=== PATIENT | male | born 1935 | race Caucasian/White ===

== ENCOUNTER → 2019-08-08 10:51 | Outpatient (BNVA) | payer MEDICARE, SELFPAY | PROVIDERS: Family Provider Family Medicine; PCP Family Medicine; Visit Provider Urology | DX: R33.9 Retention of urine, unspecified (principal); R82.81 Pyuria; C61 Malignant neoplasm of prostate; N52.9 Male erectile dysfunction, unspecified | CPT/HCPCS: 81001 ==

== ENCOUNTER → 2020-04-17 09:39 | Outpatient (BNVA) | payer MEDICARE, SELFPAY | PROVIDERS: Family Provider Family Medicine; PCP Family Medicine; Visit Provider Internal Medicine Cardiovascular Disease | DX: E78.2 Mixed hyperlipidemia (principal) | CPT/HCPCS: 80048; 80061 ==

== ENCOUNTER → 2020-05-12 12:28 | Outpatient (BNVA) | payer MEDICARE, SELFPAY | PROVIDERS: Family Provider Family Medicine; PCP Family Medicine; Visit Provider Dermatology | DX: D48.9 Neoplasm of uncertain behavior, unspecified (principal) | CPT/HCPCS: 88304 ==

== ENCOUNTER → 2020-05-28 15:50 | Outpatient (BNVA) | payer MEDICARE, SELFPAY | PROVIDERS: Family Provider Family Medicine; PCP Family Medicine; Visit Provider Urology | DX: R33.9 Retention of urine, unspecified (principal); C61 Malignant neoplasm of prostate; R31.0 Gross hematuria; N52.9 Male erectile dysfunction, unspecified; N39.9 Disorder of urinary system, unspecified | CPT/HCPCS: 80053; 81003; 87077; 87086; 87184; 88112 ==

== ENCOUNTER 2020-06-11 09:39 | Outpatient (CLI) | payer MEDICARE, SELFPAY ==
--- NOTE | 2020-06-11 10:15 | US_ITS ---
WS: [id number] ULTRASOUND RENAL TECHNIQUE: Ultrasound examination of both kidneys. CLINICAL INFORMATION: Hematuria COMPARISON: None. FINDINGS: Multiple bilateral simple renal cysts. Largest left renal cyst upper pole measuring 5.4 x 3 .6 x 4.1 CM. Largest cyst right kidney inferior pole measures 3.1 x 2.9 x 3.1 cm RIGHT: Right kidney is normal in size and appearance. Echogenicity: Normal. Cortical thickness: 1.1 cm; Normal. Hydronephrosis: None. Perinephric fluid: None. Right kidney measures: 12.4 cm x 6.7 cm x 6.7 cm. LEFT: Left kidney is normal in size and appearance. Echogenicity: Normal. Cortical thickness: 1.1 cm; Normal. Hydronephrosis: None. Perinephric fluid: None. Left kidney measures: 12.2 cm x cm x cm. Normal visualized aorta. Enlarged prostate. Diffuse bladder wall thickening. US/US renal BI* [id number] IMPRESSION: 1. Multiple bilateral simple renal cysts. Largest measures blunting. 2. Normal bladder. Small amount of free fluid along the dome of the bladder. 3. Diffuse bladder wall thickening can be seen with chronic cystitis or bladde r outlet obstruction. 4. Enlarged prostate measuring 4.1 x 3.2 x 3.2 CM. 5. Prostate measures
== END 2020-06-11 09:40 | disposition home or self-care (01) ==
LOC: RAD 09:44
PROVIDERS: PCP Family Medicine; Visit Provider Urology
DX: R31.0 Gross hematuria (principal); N28.1 Cyst of kidney, acquired; N40.0 Benign prostatic hyperplasia without lower urinary tract symptoms
CPT/HCPCS: 76770; 81003

== ENCOUNTER → 2020-06-16 11:07 | Outpatient (BNVA) | payer MEDICARE, SELFPAY | PROVIDERS: PCP Family Medicine; Visit Provider Dermatology | DX: D48.9 Neoplasm of uncertain behavior, unspecified (principal) | CPT/HCPCS: 88304 ==

== ENCOUNTER → 2020-06-18 15:09 | Outpatient (BNVA) | payer MEDICARE, SELFPAY | PROVIDERS: PCP Family Medicine; Visit Provider Urology | DX: N99.112 Postprocedural membranous urethral stricture, male (principal) | CPT/HCPCS: 87635 ==

== ENCOUNTER 2020-06-23 10:56 | Day surgery (SDC) | payer MEDICARE, SELFPAY ==
[2020-06-19 09:53] VITALS: BMI 24.4
--- NOTE | 2020-06-19 09:59 | ECG_ITS ---
[facility] Test Date: 2020-06-19 Pat Name: Cain Simpson Department: Room: Gender: Male Weigher Alloy: : 1935 Requested By: Loco Aparicio Order Number: [id number] Marilynn MD: Hugh Alvarado M.D. Measurements Intervals [place] Rate: 88 P: ND: QRS: 67 QRSD: 126 T: 41 QT: 392 QTc: 475 Interpretive Statements ATRIAL FIBRILLATION RIGHT BUNDLE BRANCH BLOCK [120+ ms QRS DURATION, UPRIGHT V1, 40+ ms S IN I/aVL/V4/V5/V6] No previous ECG available for comparison Electronically Signed On 06-19-2020 22:04:52 SALES DEVELOPMENT EXECUTIVE by Hugh Alvarado M.D. [id number]
--- NOTE | 2020-06-19 10:35 | ANES.PREANE2 ---
Pre-Anesthetic Assessment Pre-Anesthetic Assessment: Height/Weight: Height 1.83 m Weight 81.647 kg Preop Diagnosis: Urethral stricture Proposed Procedure: Operation Date: 06/23/20 13:05 Proposed Procedures p Urethral stricture Dilation 85304 n99.112(Not Applicable) - Loco Aparicio MD s Cystoscopy(Not Applicable) - Loco Aparicio MD s Urinary Catheter Insertion(Not Applicable) - Loco Aparicio MD Familial anesthetic complications: urinaryi retetion Social: Social History: No alcohol and No tobacco Comment: former smoker Exam: Pre-Anes Outpt Exam: alert, oriented x 3, clear to auscultation bilaterally and regular rate & rhythm Airway: Cervical ROM: WNL MP: 3 Dentition: Full CV/HEM: CV/HEM: Afib, CAD, HTN and Murmur Comments: stress test 2019 0 EF 57%, no signnificant ischemia ECHO in 2018 - Mod MR, mild, AVR, severe TVR Loop record in place GI: GI: Hiatus hernia Metabolic: Metabolic: Hyperlipidemia Anesthetic Plan: ASA status: 3 Anesthesia: General Risk of > 500 ml blood loss (7ml/kg in children): No PFSH Anesthesia PFSH: Medical History ASHD (arteriosclerotic heart disease) Atrial fibrillation BPH (benign prostatic hyperplasia) Diverticulosis Edema, peripheral Erectile dysfunction Gross hematuria Hyperlipidemia Hypertension Incomplete bladder emptying Lower urinary tract symptoms (LUTS) Postprocedural membranous urethral stricture Prostate cancer Right inguinal hernia Valvular heart disease Surgical History Status post appendectomy Status post bilateral inguinal hernia repair Status post cataract extraction Status post coronary artery bypass graft Family History Father , AT AGE 68-[place] No problems noted. Mother , OF STOMACH CANCER AT AGE 75 Diabetes Other CAD (coronary artery disease) Cancer Hypertension Social History Smoking and tobacco status: former smoker Alcohol intake: never Marital status: Current occupational status: retired Data Anesthesia Cardiac Studies: No Data to Display
[2020-06-19 12:33] LABS: Basophils # 0.1 10^3/uL (0.0-0.1); Basophils % 0.7 %; Eosinophils # 0.1 10^3/uL (0.0-0.8); Eosinophils % 1.5 %; Hematocrit 36.4 % (42.0-52.0); Hemoglobin 11.6 g/dL (11.7-16.6); Lymphocytes # 1.2 10^3/uL (0.8-4.8); Lymphocytes % 17.3 %; Mean Corpuscular HGB Conc 31.9 g/dL (30.0-36.0); Mean Corpuscular Hemoglobin 33.6 pg (28.0-34.0); Mean Corpuscular Volume 105.5 fL (80-94); Mean Platelet Volume 11.3 fL (7.4-10.4); Monocytes # 0.8 10^3/uL (0.2-0.9); Monocytes % 11.5 %; Neutrophils # 4.52 10^3/uL (1.8-7.7); Neutrophils % 67.7 %; Nucleated Red Blood Cells % 0 %; Platelet Count 189 10^3/cmm (130-400); Red Blood Count 3.45 10^6/uL (4.1-5.3); Red Cell Distribution Width 17.2 % (12.1-15.1); White Blood Count 6.7 10^3/uL (4.0-10.0)
[2020-06-19 12:53] LABS: Blood Urea Nitrogen 11 mg/dL (8-23); Calcium 9.6 mg/dL (8.5-10.5); Carbon Dioxide 27 mmol/L (22-29); Chloride 103 mmol/L (98-107); Glucose 80 mg/dL (65-115); Osmolality Calculated 290 mOsm/kg (285-295); Sodium 141 mmol/L (136-145)
[2020-06-23] MEDS: sodium chloride 0.9% 1,000 ML 30 ML IV (11:36)
--- NOTE | 2020-06-23 11:48 | P.ANESUD_ITS ---
Pre-Anesthetic Update Pre-Anesthetic Assessment: Date of Surgery/Procedure: 06/23/20 Preop Karina gnosis: Urethral stricture Proposed Procedure: Operation Date: 06/23/20 13:05 Proposed Procedures p Urethral stricture Dilation 42833 n99.112(Not Applicable) - Loco Aparicio MD s Cystoscopy(Not Applicable) - MD yonatan Gutierrez Urinary Catheter Insertion(Not Applicable) - Loco Aparicio MD Any changes to Pre-Anesthetic Assessment?: No Last Intake: Intake Last Liquid Date 06/22/20 Last Liquid Time 16:00 Last Solid Date 06/22/20 Last Solid Time 16:00 Vitals: Pulse Rhythm 06/23/20 11:19 Pulse Strength 3+ Normal 06/23/20 11:19 Oxygen Delivery Me thod 06/23/20 11:19 Exam: Pre-Anes Outpt Exam: alert, oriented x 3, clear to auscultation bilaterally and regular rate & rhythm Cardiac Studies: No Data to Display
--- NOTE | 2020-06-23 13:04 | P.HPUD_ITS ---
Surgery/Procedure H&P Update DATE OF PROCEDURE: June 23, 2020 DATE H&P PERFORMED: 06/11/20 H&P UPDATE INFORMATION: I have reviewed H&P completed within last 30 days, I have examined patient prior to procedure, No changes to prior documentation and H[place] is [place] [facility] [place] PREOP DIAGNOSIS: Urethral stricture PLANNED PROCEDURE: Operation Date: 06/23/20 13:05 Proposed Procedures p Urethral stricture Dilation 78256 n99.112(Not Applicable) - Loco Aparicio MD s Cystoscopy(Not Applicable) - Loco Aparicio MD s Urinary Catheter Insertion(Not Applicable) - Loco Aparicio MD
[2020-06-23] MEDS: levofloxacin-dextrose 5 % 500 MG/100 ML PREMIX 100 MG IV (13:25)
--- NOTE | 2020-06-23 13:47 | P.OP_ITS ---
Operative Report Date of procedure: June 23, 2020 Pre-op Diagnosis: Urethral stricture Post-op diagnosis: same Procedure Done: Cystoscopy with urethral dilation catheter placement Pathology: none sent Surgeon: Alessandra Anesthesia: General Estimated blood loss: Minimal Complications: None Findings: Pinpoint urethral stricture dilated with Amplatz renal sounds. 12 [place] African to 18 [place]. Good dilation. Reinspection showed normal bladder with cystoscopy (17 [place] scope. Condition: stable Disposition: PACU Brief History: Mr. Simpson is a very pleasant 84-year-old white male recently diagnosed with urethral stricture during work-up for gross hematuria. He complained of typical obstructive symptoms. He was here today for a urethral dilation after holding his Pradaxa for 1 week. Procedure: After routine preoperative evaluation examination and obtaining of informed consent he was taken to the operating suite on 06/23/2020 where general anesthesia was administered without difficulty after appropriate timeout was performed, SCDs confirmed to be functioning, preoperative antibiotics administered, beta-juan protocol confirmed. Prepped and draped in usual sterile fashion in dorsal lithotomy position paying careful attention to avoiding pressure points A 21 [place] cystoscope with 30 degree lens was introduced to the urethral meatus and advanced into the bladder under videoscopy to the point of the stricture which was noted to be pinpoint. A flexible tip guidewire was then passed through it almost completely filling the hole. The wire was confirmed to be curling in the bladder and then sequential dilation beginning with 8 [place] up through 18 [place] African utilizing the Amplatz renal dilator kit was performed with the 14, 16 and 18 being passed over the snake and the 12, 10, and 8 being passed over the wire The 17 [place] cystoscope was then passed over the wire into the bladder and the bladder was inspected with both 70 and 30 degree lenses with no gross pathology identified. A 16 [place] tip catheter that was advanced over the guidewire with good function confirmed and balloon functioning before removal of the safety wire. Catheter placed to dependent drainage and the procedure completed. Tolerated the procedure well without complications, awakened in the operating room and returned to the recovery room in stable condition with anticipation of discharge from outpatient surgery after full recovery. PLANS: 1. Follow-up in 1 week for voiding trial and SCIC instruction.
[2020-06-23 13:48] VITALS: BP 103/69; PULSE 95; RESP 12; TEMP 36.1; O2SAT 100
[2020-06-23 13:50] VITALS: BP 112/72; PULSE 98; RESP 17; O2SAT 100
[2020-06-23 13:55] VITALS: BP 112/74; PULSE 96; RESP 14; O2SAT 97
[2020-06-23 14:00] VITALS: BP 102/77; PULSE 94; RESP 16; TEMP 36.4; O2SAT 98
[2020-06-23 14:07] VITALS: BP 108/69; PULSE 99; RESP 16; TEMP 36.4; O2SAT 98
[2020-06-23 14:21] VITALS: BP 109/76; PULSE 89; RESP 16; O2SAT 99
--- NOTE | 2020-06-23 15:15 | ANE.PACU2 ---
Inpatient post-anesthesia follow up: Airway intact: Yes Vital signs: Temperature 97.6 F Pulse Rate 89 Respiratory Rate 16 Blood Pressure 109/76 Pulse Oximetry 99 Oxygen Delivery Me thod Room Air Oxygen Flow Rate 8 Fraction of Inspir ed Oxygen Hydration adequate: Yes Nausea and vomiting: No Pain level: 2 Mental status: Baseline
== END 2020-06-23 14:34 | disposition home or self-care (01) ==
PROVIDERS: PCP Family Medicine; Visit Provider Urology
PROC: (CPT 52281; principal; 2020-06-23 12:45)
PROC: 0TJB8ZZ Inspection of Bladder, Via Natural or Artificial Opening Endoscopic (ICD-10-PCS; CPT 52000; 2020-06-23 12:45)
DX: N35.919 Unspecified urethral stricture, male, unspecified site (principal); I48.91 Unspecified atrial fibrillation; I25.10 Atherosclerotic heart disease of native coronary artery without angina pectoris; I10 Essential (primary) hypertension; E78.5 Hyperlipidemia, unspecified; N40.0 Benign prostatic hyperplasia without lower urinary tract symptoms; Z87.891 Personal history of nicotine dependence
CPT/HCPCS: 52281; 12345; 80048; 85025; 93005; J1100; J1956; J2405; J2704; J3010; J7030

== ENCOUNTER → 2020-08-14 11:00 | Outpatient (BNVA) | payer MEDICARE, SELFPAY | PROVIDERS: PCP Family Medicine; Visit Provider Urology | DX: R33.9 Retention of urine, unspecified (principal); N99.112 Postprocedural membranous urethral stricture, male; C61 Malignant neoplasm of prostate | CPT/HCPCS: 81003 ==

== ENCOUNTER → 2021-01-12 10:55 | Outpatient (BNVA) | payer MEDICARE, SELFPAY | PROVIDERS: PCP Family Medicine; Visit Provider Urology | DX: N99.112 Postprocedural membranous urethral stricture, male (principal); C61 Malignant neoplasm of prostate; R33.9 Retention of urine, unspecified; N52.9 Male erectile dysfunction, unspecified | CPT/HCPCS: 81003; 84153 ==

== ENCOUNTER → 2021-10-15 10:49 | Outpatient (BNVA) | payer MEDICARE, SELFPAY | PROVIDERS: PCP Family Medicine; Visit Provider Internal Medicine Cardiovascular Disease | DX: E78.2 Mixed hyperlipidemia (principal); R07.9 Chest pain, unspecified; I25.10 Atherosclerotic heart disease of native coronary artery without angina pectoris; I48.19 Other persistent atrial fibrillation | CPT/HCPCS: 99214 ==

== ENCOUNTER 2021-11-06 13:51 | Outpatient (CLI) | payer MEDICARE, SELFPAY ==
--- NOTE | 2021-11-06 14:00 | USCV_ITS ---
Cain Simpson Age: 85 Gender: M : 1935 Exam Date: 11/06/2021 14:04 Ordering Phys: Hugh Alvarado MD ([email or web address]) Technologist: Valerie Wang Exam Location: [facility] [place] Indication: sob mr tr BP: 120 / 70 HR: 93 Rhythm: Sinus Technical Quality: Adequate MEASUREMENTS (Male / Female) Normal Values 2D ECHO LV Chamber Size 4.5 cm RV Chamber Size 3.1 cm LVOT Diameter 2.1 cm LA Diameter 4.5 cm LA Width 4.3 cm LA Height 5.4 cm RA Width 7.3 cm RA Height 8.5 cm Aorta at Sinotubular Diameter 3.5 cm M-MODE Aortic Annulus Diameter 3.7 cm LA Ao Ratio MM 1.3 MV E Point Septal Separation 0.6 cm DOPPLER AV Peak Velocity 214.3 cm/s LVOT Peak Velocity 86.7 cm/s AV Area Cont Eq vti 1.2 cm squared AV Area Cont Eq pk 1.4 cm squared MV Area PHT 4.6 cm squared Mitral E to A Ratio 2.8 MV E' Velocity 62.0 cm/s Mitral E to MV E' Ratio 5.0 Mitral E to LV E' Lateral Ratio 4.7 Mitral E to LV E' Septal Ratio 5.4 TR Peak Velocity 280.0 cm/s TR Peak Gradient 31.4 mmHg TR Mean Velocity 180.3 cm/s TR Mean Gradient 14.9 mmHg TR Velocity Time Integral 65.3 cm TV Peak E Velocity 108.0 cm/s Right Atrial Pressure 10.0 mmHg Pulmonary Artery Systolic Pressu 41.4 mmHg PV Peak Velocity 49.0 cm/s RV Acceleration Time 0.1 s RV Ejection Time 0.3 s RV AcT/ET 0.3 FINDINGS Left Ventricle Normal left ventricular size and systolic function, EF 65%.no regional wall motion abnormalities. Right Ventricle Mildly dilated right ventricle with normal ejection fraction Right Atrium Moderately increased right atrial size. Left Atrium Mildly increased left atrial size. Mitral Valve Grade 2 prolapse of the anterior mitral leaflet. Moderate eccentric mitral regurgitation, jet directed posteriorly Aortic Valve Thickened aortic valve. Mild aortic valve regurgitation. Tricuspid Valve Xjxgbrll-to-umichf tricuspid valve regurgitation. Estimated pulmonary artery peak systolic pressure 41 mm of Hg Pulmonic Valve Structurally normal pulmonic valve without significant stenosis. There is no pulmonic regurgitation. Pericardium Dilated inferior vena cavano pericardial effusion. Aorta Normal ascending aorta dimension. CONCLUSIONS Normal left ventricular size and systolic function, EF 65%. No regional wall motion abnormalities. Mildly dilated right ventricle with normal ejection fraction. Moderately increased right atrial size. Mildly increased left atrial size. Grade 2 prolapse of the anterior mitral leaflet. Moderate eccentric mitral regurgitation, jet directed posteriorly. Thickened aortic valve. Mild aortic valve regurgitation. Ahlqnyow-jk-mwpqkq tricuspid valve regurgitation. Dilated inferior vena cava Estimated pulmonary artery peak systolic pressure 41 mm of Hg. There is no pericardial effusion. No previous study is available for comparison. Dr Hugh Alvarado MD [facility] (Electronically Signed) Final Date: 06 November 2021 18:35 S
== END 2021-11-06 13:52 | disposition home or self-care (01) ==
LOC: RAD 13:53
PROVIDERS: PCP Family Medicine; Visit Provider Internal Medicine Cardiovascular Disease
DX: R06.00 Dyspnea, unspecified (principal); R06.02 Shortness of breath; I08.3 Combined rheumatic disorders of mitral, aortic and tricuspid valves
CPT/HCPCS: 93306

== ENCOUNTER 2022-01-11 13:21 | Outpatient (CLI) | payer MEDICARE, SELFPAY ==
[2022-01-11 14:36] LABS: Prostate Specific Antigen 0.233 ng/mL (0-4)
== END 2022-01-11 13:22 | disposition home or self-care (01) ==
PROVIDERS: PCP Family Medicine; Visit Provider Urology
DX: C61 Malignant neoplasm of prostate (principal); N99.112 Postprocedural membranous urethral stricture, male; N52.9 Male erectile dysfunction, unspecified
CPT/HCPCS: 51741; 51798; 81003; 84153; 99213

== ENCOUNTER → 2022-04-15 11:06 | Outpatient (BNVA) | payer MEDICARE, SELFPAY | PROVIDERS: PCP Family Medicine; Visit Provider Internal Medicine Cardiovascular Disease | DX: I25.10 Atherosclerotic heart disease of native coronary artery without angina pectoris (principal); I38 Endocarditis, valve unspecified; E78.2 Mixed hyperlipidemia; I10 Essential (primary) hypertension; I48.19 Other persistent atrial fibrillation; Z95.1 Presence of aortocoronary bypass graft; Z87.891 Personal history of nicotine dependence | CPT/HCPCS: 99213 ==

== ENCOUNTER 2022-11-05 06:09 | Outpatient (CLI) | payer MEDICARE, SELFPAY ==
--- NOTE | 2022-11-05 06:45 | USCV_ITS ---
Cain Simpson Age: 86 Gender: M : 1935 Exam Date: 11/05/2022 06:32 Ordering Phys: Hugh Alvarado MD ([email or web address]) Technologist: BRANDI [place] [facility] [place]: MR/TR BP: 128 / 87 HR: 35 Rhythm: Atrial fibrillation Technical Quality: Adequate MEASUREMENTS (Male / Female) Normal Values 2D ECHO LVOT Diameter 2.0 cm LV Ejection Fraction MOD 2C 56.3 % LV Ejection Fraction 2C AL 53.3 % LA Diameter 4.2 cm LA Width 3.8 cm LA Height 6.4 cm RA Width 5.5 cm RA Height 8.3 cm Aorta at Sinotubular Diameter 3.0 cm IVC Diameter 3.4 cm M-MODE Aortic Annulus Diameter 3.8 cm LA Ao Ratio MM 1.0 MV E Point Septal Separation 0.5 cm DOPPLER AV Peak Velocity 118.0 cm/s LVOT Peak Velocity 87.0 cm/s AV Area Cont Eq vti 2.5 cm squared AV Area Cont Eq pk 2.3 cm squared MV Peak Velocity 149.0 cm/s MV Area PHT 4.3 cm squared MV E' Velocity 59.0 cm/s Mitral E to MV E' Ratio 4.7 Mitral E to LV E' Lateral Ratio 4.2 Mitral E to LV E' Septal Ratio 5.4 TR Peak Velocity 312.0 cm/s TR Peak Gradient 38.9 mmHg TR Mean Velocity 227.9 cm/s TR Mean Gradient 21.6 mmHg TR Velocity Time Integral 82.6 cm TV Peak E Velocity 62.0 cm/s Right Atrial Pressure 15.0 mmHg Pulmonary Artery Systolic Pressu 53.9 mmHg PV Peak Velocity 95.0 cm/s RV Acceleration Time 0.1 s RV Ejection Time 0.3 s RV AcT/ET 0.4 FINDINGS Left Ventricle Normal left ventricular size and systolic function, EF 60 %. No regional wall motion abnormalities. Right Ventricle Mildly increased right ventricular size. Normal right ventricular systolic function. Right Atrium Moderately increased right atrial size. Left Atrium Mildly increased left atrial size. Mitral Valve Moderate mitral valve regurgitation. Aortic Valve Thickened aortic valve. Mild aortic valve regurgitation. Tricuspid Valve Severe tricuspid valve regurgitation. Pulmonic Valve Pwkz-xj-tichpocs pulmonary valve regurgitation. Pericardium No pericardial effusion. Aorta Normal aortic annulus size. IVC Dilated IVC with decreased respiratory variation. CONCLUSIONS Normal left ventricular size and systolic function, EF 60 %. No regional wall motion abnormalities. Moderately increased right atrial size. Mildly increased right ventricular size. Normal right ventricular systolic function. Mildly increased left atrial size. Moderate mitral valve regurgitation. Thickened aortic valve. Mild aortic valve regurgitation. Possibly severe tricuspid valve regurgitation. Estimated pulmonary artery peak systolic pressure 54 mmHg There is no pericardial effusion. There are no intracardiac masses. Compared to the study from 11/06/2021 there is some worsening of the pulmonary hypertension Dr Hugh Alvarado MD [facility] (Electronically Signed) Final Date: 11 November 2022 00:58 S
== END 2022-11-05 06:10 | disposition home or self-care (01) ==
PROVIDERS: PCP Family Medicine; Visit Provider Internal Medicine Cardiovascular Disease
DX: R06.09 Other forms of dyspnea (principal); I48.91 Unspecified atrial fibrillation; I35.8 Other nonrheumatic aortic valve disorders
CPT/HCPCS: 36415; 80048; 80076; 83880; 85025; 85610; 93306; 99214

== ENCOUNTER → 2022-11-24 10:44 | Outpatient (BNVA) | payer MEDICARE, SELFPAY | PROVIDERS: PCP Family Medicine; Visit Provider Nurse Practitioner Family | DX: L57.0 Actinic keratosis (principal); L81.4 Other melanin hyperpigmentation; D69.2 Other nonthrombocytopenic purpura; L82.1 Other seborrheic keratosis; Z71.89 Other specified counseling | CPT/HCPCS: 17004; 99214 ==

== ENCOUNTER 2022-11-24 13:47 | Outpatient (CLI) | payer MEDICARE, SELFPAY ==
[2022-11-24 15:02] LABS: Blood Urea Nitrogen 23 mg/dL (8-23); Calcium 9.5 mg/dL (8.5-10.5); Carbon Dioxide 25 mmol/L (22-29); Chloride 104 mmol/L (98-107); Glucose 120 mg/dL (65-115); NT Pro B Type Natriuretic Pept 2398 pg/mL (0-450); Osmolality Calculated 295 mOsm/kg (285-295); Sodium 140 mmol/L (136-145)
== END 2022-11-24 13:48 | disposition home or self-care (01) ==
PROVIDERS: PCP Family Medicine; Visit Provider Internal Medicine Cardiovascular Disease
DX: I38 Endocarditis, valve unspecified (principal); E78.2 Mixed hyperlipidemia; I48.19 Other persistent atrial fibrillation; I25.10 Atherosclerotic heart disease of native coronary artery without angina pectoris; R23.3 Spontaneous ecchymoses; Z95.1 Presence of aortocoronary bypass graft
CPT/HCPCS: 36415; 80048; 83880

== ENCOUNTER 2022-12-09 11:37 | Outpatient (CLI) | payer MEDICARE, SELFPAY ==
[2022-12-09 13:42] LABS: Blood Urea Nitrogen 43 mg/dL (8-23); Calcium 9.2 mg/dL (8.5-10.5); Carbon Dioxide 26 mmol/L (22-29); Chloride 98 mmol/L (98-107); Glucose 106 mg/dL (65-115); NT Pro B Type Natriuretic Pept 1321 pg/mL (0-450); Osmolality Calculated 293 mOsm/kg (285-295); Sodium 136 mmol/L (136-145)
== END 2022-12-09 11:38 | disposition home or self-care (01) ==
PROVIDERS: PCP Family Medicine; Visit Provider Internal Medicine Cardiovascular Disease
DX: I25.10 Atherosclerotic heart disease of native coronary artery without angina pectoris (principal); I10 Essential (primary) hypertension; E78.2 Mixed hyperlipidemia; I48.19 Other persistent atrial fibrillation; R60.9 Edema, unspecified; I38 Endocarditis, valve unspecified
CPT/HCPCS: 80048; 83880

== ENCOUNTER → 2023-02-23 09:01 | Outpatient (BNVA) | payer MEDICARE, SELFPAY | PROVIDERS: PCP Family Medicine; Visit Provider Nurse Practitioner Family | DX: C44.329 Squamous cell carcinoma of skin of other parts of face (principal); C44.319 Basal cell carcinoma of skin of other parts of face; L57.0 Actinic keratosis; L81.4 Other melanin hyperpigmentation; L85.3 Xerosis cutis; D69.2 Other nonthrombocytopenic purpura; L82.1 Other seborrheic keratosis; Z85.828 Personal history of other malignant neoplasm of skin | CPT/HCPCS: 11102; 17004; 99213 ==

== ENCOUNTER → 2023-03-15 08:13 | Outpatient (BNVA) | payer MEDICARE, SELFPAY | PROVIDERS: PCP Family Medicine; Visit Provider Dermatology | DX: C44.329 Squamous cell carcinoma of skin of other parts of face (principal); C44.319 Basal cell carcinoma of skin of other parts of face | CPT/HCPCS: 12054; 17311 ==

== ENCOUNTER → 2023-04-28 10:54 | Outpatient (BNVA) | payer MEDICARE, SELFPAY | PROVIDERS: PCP Family Medicine; Visit Provider Internal Medicine Cardiovascular Disease | DX: Z79.01 Long term (current) use of anticoagulants (principal); R07.9 Chest pain, unspecified; R23.3 Spontaneous ecchymoses; I25.10 Atherosclerotic heart disease of native coronary artery without angina pectoris; I10 Essential (primary) hypertension; E78.2 Mixed hyperlipidemia; I38 Endocarditis, valve unspecified; I48.91 Unspecified atrial fibrillation; I48.19 Other persistent atrial fibrillation; Z87.891 Personal history of nicotine dependence; I45.10 Unspecified right bundle-branch block | CPT/HCPCS: 36415; 85025; 85610; 93005; 99214 ==

== ENCOUNTER → 2023-05-26 11:44 | Outpatient (BNVA) | payer MEDICARE, SELFPAY | PROVIDERS: PCP Family Medicine; Visit Provider Nurse Practitioner Family | DX: L57.0 Actinic keratosis (principal); L81.4 Other melanin hyperpigmentation; L85.3 Xerosis cutis; D69.2 Other nonthrombocytopenic purpura; L82.1 Other seborrheic keratosis; Z85.828 Personal history of other malignant neoplasm of skin | CPT/HCPCS: 17000; 99213 ==

== ENCOUNTER → 2023-09-14 10:38 | Outpatient (BNVA) | payer MEDICARE, SELFPAY | PROVIDERS: PCP Family Medicine; Visit Provider Nurse Practitioner Family | DX: D48.5 Neoplasm of uncertain behavior of skin (principal); L57.0 Actinic keratosis; L81.4 Other melanin hyperpigmentation; D69.2 Other nonthrombocytopenic purpura; L98.8 Other specified disorders of the skin and subcutaneous tissue; Z85.828 Personal history of other malignant neoplasm of skin | CPT/HCPCS: 11102; 17000; 99213 ==

== ENCOUNTER 2023-09-19 05:43 | Emergency (ER) | payer MEDICARE, SELFPAY ==
[2023-09-19] VITALS (7 sets, daily range): BP systolic 112–119; BP diastolic 77–85; PULSE 86–93; RESP 17–24; TEMP 36.4; O2SAT 97–100; BMI 24.4
--- NOTE | 2023-09-19 06:01 | XRR_ITS ---
PROCEDURE INFORMATION: Exam: XR Chest Exam date and time: 09/19/2023 6:09 AM Age: 87 years old Clinical indication: Shortness of breath; Additional info: Dyspnea/cough TECHNIQUE: Imaging protocol: Radiologic exam of the chest. Views: 1 view. COMPARISON: CR XR abdomen 1V* [id number] 06/05/2020 11:56 AM FINDINGS: Tubes, catheters and devices: Loop recorder on the left. Lungs: Haziness the left lung base represents an unknown combination of atelectasis, infiltrate, and effusion. A well-circumscribed nodular density which projects at the right lung base could be artifactual or could represent a right lower lobe mass. This measures 5 cm. A repeat study with lateral film recommended. Pleural spaces: Unremarkable. No pleural effusion. No pneumothorax. Heart/Mediastinum: Moderate cardiomegaly. Bones/joints: Median sternotomy. XR/XR chest 1V portable [id number] IMPRESSION: 1. Cardiomegaly. 2. Mild opacity at the left lung base. 3. Possible nodular mass in the right lower lobe. Repeat study recommended.
--- NOTE | 2023-09-19 06:01 | ECG_ITS ---
[facility] Test Date: 2023-09-19 Pat Name: Cain Simpson Department: Room: Gender: Male Gore Stitcher: : 1935 Requested By: Rahat Menezes Order Number: [id number] Marilynn MD: Logan Haider M.D. Measurements Intervals [place] Rate: 95 P: 0 MA: 0 QRS: 110 QRSD: 146 T: 11 QT: 397 QTc: 501 Interpretive Statements ATRIAL FIBRILLATION RIGHT AXIS DEVIATION [QRS AXIS > 100] RIGHT BUNDLE BRANCH BLOCK [120+ ms QRS DURATION, UPRIGHT V1, 40+ ms S IN I/aVL/V4/V5/V6] Compared to ECG 04/28/2023 11:00:37 Right-axis deviation now present Electronically Signed On 09-19-2023 9:49:07 HOME PLANNING CONSULTANT SALESPERSON by Logan Haider M.D. [id number]
--- NOTE | 2023-09-19 06:02 | ED_ITS ---
HPI - SOB/Dyspnea 2 General: Chief Complaint: Shortness of Breath/Dyspnea Stated Complaint: Chest Pains Time Seen by Provider: 09/19/23 06:00 Source: patient Mode of arrival: ambulatory History of Present Illness: HPI Narrative: 87-year-old male presents emergency room with shortness of breath for last couple of weeks yesterday began having some left shoulder discomfort. He took nitro for it several times he will get some vague improvement but does not completely resolve. He does not have any specific chest discomfort at this time. He has not had a productive cough with no hemoptysis no nausea or vomiting. He has had a little bit of sinus drainage he has known history of coronary artery disease and atrial fibrillation he is on anticoagulant. He has previously had bypass. At one point he had arrhythmia issues has a loop recorder in place however that has been in place for several years, he is elected not to have it removed. MD elicited complaint: shortness of breath and cough Onset (ago): day(s) (1) Timing: intermittent Severity: mild Exacerbating factors: nothing Relieving factors: nothing Associated symptoms: Reports chest pain; Deny abdominal pain, chest congestion, cough, diaphoresis, dizziness, extremity pain, fever(s), hemoptysis, lightheadedness, myalgias, nausea, orthopnea, palpitations, paresthesias, polydipsia, polyuria, rash, sense of impending doom, syncope or vomiting Treatment prior to arrival: none Related Data: Home oxygen amount: none Review of Systems 2 Const: Denies: fever(s), chills or diaphoresis Card: Reports: chest pain; Denies: palpitations, lightheadedness, syncope or orthopnea Resp: Reports: dyspnea; Denies: wheezing, hemoptysis or chest congestion GI: Denies: abdominal pain, nausea or vomiting : Denies: dysuria, urinary frequency or urinary urgency Musc: Reports: joint pain (Left shoulder); Denies: neck pain, back pain or extremity pain Skin/Breast: Denies: rash Neuro: Denies: dizziness Endo: Denies: polyuria or polydipsia PFSH ED 2 PFSH: Medical History Lower urinary tract symptoms (LUTS) Postprocedural membranous urethral stricture Gross hematuria Edema, peripheral ASHD (arteriosclerotic heart disease) Atrial fibrillation Hypertension Hyperlipidemia Valvular heart disease Right inguinal hernia Diverticulosis BPH (benign prostatic hyperplasia) Erectile dysfunction Incomplete bladder emptying Prostate cancer Surgical History Status post cataract extraction Status post appendectomy Status post coronary artery bypass graft Status post bilateral inguinal hernia repair Family History Father , AT AGE 68-[place] No problems noted. Mother , OF STOMACH CANCER AT AGE 75 Diabetes Other CAD (coronary artery disease) Cancer Hypertension Denies family history of Clotting disorder Dementia Chronic kidney disease (CKD) Suicide Anesthesia complication Bleeding disorder Lung disease Stroke Social History Smoking and tobacco/nicotine status: former use of tobacco/nicotine Alcohol intake: never Substance/Drug Use: never Marital status: Current occupational status: retired Physical Exam 2 Const: COMMON NORMALS: no acute distress GENERAL APPEARANCE: cooperative and comfortable ORIENTATION/CONSCIOUSNESS: Yes awake, Yes oriented to person, Yes oriented to place and Yes oriented to time HENMT: COMMON NORMALS: normocephalic, atraumatic and hearing grossly normal bilaterally HEAD & SCALP: normocephalic and atraumatic Resp: COMMON NORMALS: normal respiratory effort, No retractions, No use of accessory muscles and clear to auscultation bilaterally AUSCULTATION: clear to auscultation bilaterally Cardio: COMMON NORMALS: regular rate, regular rhythm and No murmurs present (Cardio) RATE: regular rate RHYTHM: regular rhythm GI: COMMON NORMALS: Soft to palpation and No hepatosplenomegaly present A USCULTATION: Yes normoactive bowel sounds PALPATION: Yes Soft to palpation, No Tenderness to palpation present (GI), No Guarding due to palpation present (GI) and Yes No hepatosplenomegaly present Extremity: COMMON NORMALS: normal to inspection, capillary refill normal, no clubbing, cyanosis or edema, no calf tenderness and no pedal edema Neuro: SENSORIUM/ORIENTATION: Yes oriented to person, Yes oriented to place and Yes oriented to time Skin: COMMON NORMALS: no rashes or lesions noted GENERAL SKIN EXAM: no rashes or lesions noted Course 2 Vital Signs: Vital signs: Vital Signs Temperature 97.6 F 09/19/23 05:46 Pulse Rate 86 09/19/23 08:00 Respiratory Rate 24 H 09/19/23 06:30 Blood Pressure 119/79 09/19/23 08:00 Pulse Oximetry 97 09/19/23 08:00 Oxygen Delivery Me thod Room Air 09/19/23 05:46 MDM - SOB/Dyspnea Medical Decision Making Nodule at the base right lung will set up for outpatient evaluation with pulmonology. She does have some mild heart failure will increase Lasix to 60 mg daily for the next 3 days. Recheck fizzing worsening or change symptoms cardiac enzymes today negative no further discomfort. Medical Records I reviewed the patient's medical records. Lab Data I reviewed the patient's lab results. 09/19/23 05:54 09/19/23 05:54 Labs/Radiology: Radiology Impressions Chest X-Ray 09/19/23 06:01 IMPRESSION: 1. Cardiomegaly. 2. Mild opacity at the left lung base. 3. Possible nodular mass in the right lower lobe. Repeat study recommended. Laboratory Results WBC 10.72 10^3/uL (3.29-11.43) 09/19/23 05:54 RBC 2.87 10^6/uL (3.85-5.65) L 09/19/23 05:54 Hgb 9.90 g/dL (11.27-16.99) L 09/19/23 05:54 Hct 30.5 % (37-53) L 09/19/23 05:54 MCV 106.3 fl (82-101) H 09/19/23 05:54 MCH 34.5 pg (27-33) H 09/19/23 05:54 MCHC 32.5 g/dL (30-55) 09/19/23 05:54 RDW 20.0 % (12.1-15.1) H 09/19/23 05:54 Plt Count 143 10^3/cmm (157-399) L 09/19/23 05:54 MPV 12.0 fL (7.4-10.4) H 09/19/23 05:54 Neut % (Auto) 76.6 % 09/19/23 05:54 Lymph % (Auto) 10.4 % 09/19/23 05:54 [place] % (Auto) 10.9 % 09/19/23 05:54 Eos % (Auto) 0.4 % 09/19/23 05:54 Baso % (Auto) 0.7 % 09/19/23 05:54 Neut # (Auto) 8.21 10^3/uL (1.8-7.7) H 09/19/23 05:54 Lymph # (Auto) 1.1 10^3/uL (0.8-4.8) 09/19/23 05:54 [place] # (Auto) 1.2 10^3/uL (0.2-0.9) H 09/19/23 05:54 Eos # (Auto) 0.0 10^3/uL (0.0-0.8) 09/19/23 05:54 Baso # (Auto) 0.1 10^3/uL (0.0-0.1) 09/19/23 05:54 Nucleated RBC % (auto) 0.7 % 09/19/23 05:54 Nucleated RBCs # 0.1 /100WBC 09/19/23 05:54 Sodium 139 mmol/L (136-145) 09/19/23 05:54 Potassium 4.2 mmol/L (3.5-5.1) 09/19/23 05:54 Chloride 102 mmol/L (98-107) 09/19/23 05:54 Carbon Dioxide 22 mmol/L (22-29) 09/19/23 05:54 Anion Gap 19.2 (5-19) H 09/19/23 05:54 BUN 24 mg/dL (8-23) H 09/19/23 05:54 Creatinine 1.6 mg/dL (0.7-1.2) H 09/19/23 05:54 GFR Calculation Not Reportable 09/19/23 05:54 Glucose 126 mg/dL (65-115) H 09/19/23 05:54 Calculated Osmolality 294 mOsm/kg (285-295) 09/19/23 05:54 Calcium 9.1 mg/dL (8.5-10.5) 09/19/23 05:54 Total Bilirubin 1.8 mg/dL (0.15-1.2) H 09/19/23 05:54 AST 22 U/L (0-40) 09/19/23 05:54 ALT 9 U/L (0-41) 09/19/23 05:54 Alkaline Phosphatase 33 U/L (40-130) L 09/19/23 05:54 Troponin T Baseline 56 ng/L (0-15) H 09/19/23 05:54 Troponin T 120 Minute 54.20 ng/L (0-15) H 09/19/23 07:58 Delta Troponin T -1.80 ABS# (0-10) L 09/19/23 07:58 NT-Pro-B Natriuret Pep 3281 pg/mL (0-450) H 09/19/23 05:54 Total Protein 6.1 g/dL (6.6-8.7) L 09/19/23 05:54 Albumin 4.3 g/dL (3.5-5.2) 09/19/23 05:54 Globulin 1.8 g/dL (1.3-4.6) 09/19/23 05:54 All radiology interpretation(s) finalized by discharge Discharge Plan Discharge Patient Disposition: Home Clinical Impression: Congestive heart failure, Nodule of right lung Condition: Stable Prescriptions: Changed furosemide 40 mg tablet 60 mg PO QAM Qty: 20 0RF Rx Instructions: Increase Lasix to 60 mg daily for 4 days No Action potassium chloride [Klor-Con M20] 20 mEq tablet,ER particles/crystals 20 meq PO DAILY lisinopril 10 mg tablet 10 mg PO BEDTIME fenofibrate 160 mg tablet 160 mg PO DAILY allopurinol 300 mg tablet 300 mg PO BEDTIME tamsulosin 0.4 mg capsule 0.4 mg PO DAILY ezetimibe 10 mg tablet 10 mg PO BEDTIME Pradaxa 75 mg capsule 75 mg PO BID isosorbide mononitrate 30 mg tablet extended release 24 hr 30 mg PO DAILY multivitamin Tablet 1 tab PO DAILY vitamin B complex [B Complex-Vitamin B12] Tablet 1 tab PO DAILY nitroglycerin [Nitrostat] 0.4 mg tablet, sublingual 0.4 mg sublingual Q5M PRN (Reason: chest pain) Qty: 25 3RF Rx Instructions: do not exceed 3 doses per episode Discharge Orders: Discharge ED (Routine); Ordered 09/19/23 Ordered By: Rahat Contreras Referrals: Nato Diggs [Primary Care Provider] - Discharge Diet: Cardiac Discharge Activity: Increase activity as tolerated Patient Instructions: Opioid Safety, Pain Management Activity Restrictions/Additional Instructions: [email or web address]. Please realize this is an emergency room and that we are providing you with a medical screening exam and this may not be complete and all inclusive of all the testing and or work up that you may need to determine your ailment or severity of your illness. It is very important that you follow up as instructed or that you return to the Emergency Department should you have concerns or if your condition changes or worsens in any way. Hold lisinopril for the next 4 days. Increase Lasix to 60 mg (1 and half tablets daily). Follow-up with your primary care doctor within the next 4 days. You should also follow-up with Dr. Alvarado. We are scheduling you for a repeat echocardiogram to evaluate your heart further. Additionally you were noted to have a nodule at the base of the right lung. assessment manager will make arrangements for you to follow-up with pulmonology to further evaluate this. Coding Level of Care Code ED Test Driver for Maggie Mcgrath
[2023-09-19] MEDS: aspirin 81 mg Chew Tablet 324 MG PO (06:07)
[2023-09-19 06:08] LABS: Basophils # 0.1 10^3/uL (0.0-0.1); Basophils % 0.7 %; Eosinophils % 0.4 %; Hematocrit 30.5 % (37-53); Lymphocytes # 1.1 10^3/uL (0.8-4.8); Lymphocytes % 10.4 %; Mean Corpuscular HGB Conc 32.5 g/dL (30-55); Mean Corpuscular Hemoglobin 34.5 pg (27-33); Mean Corpuscular Volume 106.3 fl (82-101); Monocytes # 1.2 10^3/uL (0.2-0.9); Monocytes % 10.9 %; Neutrophils # 8.21 10^3/uL (1.8-7.7); Neutrophils % 76.6 %; Nucleated Red Blood Cells # 0.1 /100WBC; Nucleated Red Blood Cells % 0.7 %; Platelet Count 143 10^3/cmm (157-399); Red Blood Count 2.87 10^6/uL (3.85-5.65); White Blood Count 10.72 10^3/uL (3.29-11.43)
[2023-09-19 06:41] LABS: Troponin(5th) Baseline 56 ng/L (0-15)
[2023-09-19 06:48] LABS: Alanine Aminotransferase 9 U/L (0-41); Albumin Level 4.3 g/dL (3.5-5.2); Alkaline Phosphatase 33 U/L (40-130); Anion Gap 19.2 (5-19); Aspartate Amino Transferase 22 U/L (0-40); Blood Urea Nitrogen 24 mg/dL (8-23); Calcium 9.1 mg/dL (8.5-10.5); Carbon Dioxide 22 mmol/L (22-29); Chloride 102 mmol/L (98-107); Globulin 1.8 g/dL (1.3-4.6); Glucose 126 mg/dL (65-115); NT Pro B Type Natriuretic Pept 3281 pg/mL (0-450); Osmolality Calculated 294 mOsm/kg (285-295); Potassium 4.2 mmol/L (3.5-5.1); Sodium 139 mmol/L (136-145); Total Bilirubin 1.8 mg/dL (0.15-1.2); Total Protein 6.1 g/dL (6.6-8.7)
--- NOTE | 2023-09-19 08:01 | ECG_ITS ---
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 Measurements Intervals [place] Rate: 88 P: 0 OK: 0 QRS: 105 QRSD: 146 T: 39 QT: 411 QTc: 499 Interpretive Statements ATRIAL FIBRILLATION RIGHT AXIS DEVIATION [QRS AXIS > 100] RIGHT BUNDLE BRANCH BLOCK [120+ ms QRS DURATION, UPRIGHT V1, 40+ ms S IN I/aVL/V4/V5/V6] Compared to ECG 09/19/2023 05:50:14 No significant changes Electronically Signed On 09-19-2023 9:49:31 ENERGY EFFICIENCY SPECIALIST by Logan Haider M.D. [id number]
--- NOTE | 2023-09-19 11:27 | DCPLANNER ---
Message was sent to pulmonology on 09/19/23 at 1126. [facility] to contact patient
== END 2023-09-19 09:48 | disposition home or self-care (01) ==
PROVIDERS: Emergency Provider Family Medicine; PCP Family Medicine
DX: I11.0 Hypertensive heart disease with heart failure (principal); I50.9 Heart failure, unspecified; R91.1 Solitary pulmonary nodule; Z87.891 Personal history of nicotine dependence; I10 Essential (primary) hypertension; E78.5 Hyperlipidemia, unspecified; Z85.46 Personal history of malignant neoplasm of prostate; Z95.1 Presence of aortocoronary bypass graft
CPT/HCPCS: 36415; 71045; 80053; 83880; 84484; 85025; 93005; 99285

== ENCOUNTER 2023-09-22 10:41 | Inpatient (IN) | payer MEDICARE, SELFPAY ==
[2023-09-22] VITALS (16 sets, daily range): BP systolic 103–125; BP diastolic 66–87; PULSE 81–114; RESP 17–28; TEMP 36.3–36.8; O2SAT 83–99; BMI 24.4; BMI 28.2
--- NOTE | 2023-09-22 11:20 | XR_ITS ---
WS: [id number] Examination: XR chest 1V portable [id number] Reason for Exam: dyspnea Date: 09/22/2023 Comparison: 09/19/2023 Findings: The cardiac silhouette is significantly enlarged. Sternal wires are in place. Percutaneous monitoring device is identified. The left hemidiaphragm is obscured. This may be technical due to cardiomegaly and portable technique versus fusion or consolidative change. Again the mass density is projected over the right base. Impression: Similar appearance of the chest with poor visualization of the left base. When the patient can tolera te I recommend PA and lateral imaging.
--- NOTE | 2023-09-22 11:25 | ECG_ITS ---
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 Measurements Intervals [place] Rate: 92 P: 0 NV: 0 QRS: 90 QRSD: 149 T: 82 QT: 413 QTc: 511 Interpretive Statements ATRIAL FIBRILLATION WITH ABERRANT CONDUCTION OR VENTRICULAR PREMATURE COMPLEXES INTRAVENTRICULAR CONDUCTION DELAY [130+ ms QRS DURATION] Compared to ECG 09/19/2023 08:01:17 Ventricular premature complex(es) now present Aberrant conduction of supraventricular beat(s) now present Intraventricular conduction delay now present Right-axis deviation no longer present Right bundle-branch block no longer present Electronically Signed On 09-22-2023 20:03:01 TERRAZZO LAYER HELPER by Hugh Alvarado M.D. [id number]
[2023-09-22 11:42] LABS: Basophils # 0.1 10^3/uL (0.0-0.1); Basophils % 1.2 %; Eosinophils % 0.2 %; Hematocrit 30.2 % (37-53); Lymphocytes # 1.2 10^3/uL (0.8-4.8); Lymphocytes % 12.1 %; Mean Corpuscular HGB Conc 33.4 g/dL (30-55); Mean Corpuscular Hemoglobin 34.5 pg (27-33); Mean Corpuscular Volume 103.1 fl (82-101); Mean Platelet Volume 11.2 fL (7.4-10.4); Monocytes # 1.5 10^3/uL (0.2-0.9); Monocytes % 14.9 %; Neutrophils # 6.61 10^3/uL (1.8-7.7); Neutrophils % 66.3 %; Nucleated Red Blood Cells # 0.3 /100WBC; Nucleated Red Blood Cells % 3.3 %; Platelet Count 182 10^3/cmm (157-399); Red Blood Count 2.93 10^6/uL (3.85-5.65); Red Cell Distribution Width 20.3 % (12.1-15.1); White Blood Count 9.98 10^3/uL (3.29-11.43)
--- NOTE | 2023-09-22 11:46 | W.ED.SOB ---
HPI - SOB/Dyspnea General: Chief Complaint: Shortness of Breath/Dyspnea Stated Complaint: sob Time Seen by Provider: 09/22/23 11:20 History of Present Illness: HPI Narrative: Patient presents here with complaints of shortness of breath. Patient states he was seen in the ER proximately 4 days ago and they doubled up his Lasix which does not seem to be helping. Patient does not complain of lower extremity edema. Patient was unable to get in with his primary care doctor. He saw Dr. Alvarado this morning and he was told to come here for further workup. Patient states he had an echo this morning but does not know the results. Patient does not have a oxygen at home other than a very small canister he uses to take a breath or 2. Patient does not have a large tank or concentrator etc. Patient does not have any chest pain at this time. Patient denies productive cough, nausea vomiting diarrhea, fever or chills, patient does have A-fib and is on an anticoagulant. Patient previously had bypass around 2004. Review of Systems General: Reports: 10 or more systems reviewed and unremarkable except in HPI and below PFSH ED PFSH: Medical History Lower urinary tract symptoms (LUTS) Postprocedural membranous urethral stricture Gross hematuria Edema, peripheral ASHD (arteriosclerotic heart disease) Atrial fibrillation Hypertension Hyperlipidemia Valvular heart disease Right inguinal hernia Diverticulosis BPH (benign prostatic hyperplasia) Erectile dysfunction Incomplete bladder emptying Prostate cancer Surgical History Status post cataract extraction Status post appendectomy Status post coronary artery bypass graft Status post bilateral inguinal hernia repair Family History Father , AT AGE 68-[place] No problems noted. Mother , OF STOMACH CANCER AT AGE 75 Diabetes Other CAD (coronary artery disease) Cancer Hypertension Denies family history of Clotting disorder Dementia Chronic kidney disease (CKD) Suicide Anesthesia complication Bleeding disorder Lung disease Stroke Social History Smoking and tobacco/nicotine status: former use of tobacco/nicotine Alcohol intake: never Substance/Drug Use: never Marital status: Current occupational status: retired Physical Exam Const: COMMON NORMALS: no acute distress, average body habitus, patient oriented x3, no limitations, healthy appearing, alert and well nourished OTHER: Oxygen saturation 92+ percent on room air. In no acute distress nontoxic. HENMT: COMMON NORMALS: normocephalic, atraumatic, hearing grossly normal bilaterally, external ears normal, EAC's normal, Normal external nose present, moist oral mucous membranes and oropharynx normal HEAD & SCALP: normocephalic and atraumatic NOSE: Normal external nose present EXTERNAL EAR: Yes external ears normal EXTERNAL AUDITORY CANAL: EAC's normal Eye: COMMON NORMALS: Equal, round and reactive pupils present, EOMs intact bilaterally, conjunctivae normal and no scleral icterus CONJUNCTIVA: Yes conjunctivae normal PUPIL: Yes Equal, round and reactive pupils present Neck/C-Spine: COMMON NORMALS: full ROM, no lymphadenopathy, supple, no meningeal signs, no JVD and Thyroid normal THYROID: Thyroid normal Chest: COMMONS NORMALS: normal inspection of the chest and normal palpation of entire chest wall Resp: COMMON NORMALS: normal respiratory effort, No retractions, No use of accessory muscles and clear to auscultation bilaterally AUSCULTATION: clear to auscultation bilaterally Cardio: COMMON NORMALS: no JVD, regular rate, regular rhythm, S1 normal heart sound present, S2 normal heart sound present, No gallops present (Cardio), No clicks present (Cardio), No murmurs present (Cardio) and No rub (Cardio) RATE: regular rate RHYTHM: regular rhythm HEART SOUNDS: S1 normal heart sound present and S2 normal heart sound present GI: COMMON NORMALS: Normal to inspection, nondistended, normoactive bowel sounds present, Soft to palpation, non-tender, No hepatosplenomegaly present and no masses PALPATION: Yes Soft to palpation and Yes No hepatosplenomegaly present Extremity: NARRATIVE EXTREMITY EXAM: Trace bilateral lower extremity pretibial edema Neuro: COMMON NORMALS: patient oriented x3 SENSORIUM/ORIENTATION: Yes alert MENINGEAL SIGNS: Yes no meningeal signs Course Vital Signs: Vital signs: Vital Signs Temperature 97.4 F L 09/22/23 10:45 Pulse Rate 81 09/22/23 10:45 Respiratory Rate 17 09/22/23 10:45 Blood Pressure 115/76 09/22/23 10:45 Pulse Oximetry 95 09/22/23 10:45 Oxygen Delivery Me thod Room Air 09/22/23 10:45 MDM - SOB/Dyspnea Medical Decision Making Note, lab work, imaging reviewed from visit on 09/19/2023 Lab work obtained today showed elevation of BUN/creatinine to 42/2.0, BNP of 5100 elevated AST 101, ALT 46, troponins elevated but insignificant delta discussed these results with the patient as well as Dr. Hameed we will place the patient in obs in CSU for further evaluation and treatment. Differential Diagnosis Likely congestive heart failure; Unlikely acute exacerbation of chronic obstructive airways disease, community acquired pneumonia, asthma with exacerbation or pulmonary embolism Medical Records I reviewed the patient's medical records. Lab Data I reviewed the patient's lab results. 09/22/23 11:27 09/22/23 11:27 Labs/Radiology: Laboratory Results WBC 9.98 10^3/uL (3.29-11.43) 09/22/23 11: RBC 2.93 10^6/uL (3.85-5.65) L 09/22/23 11:27 Hgb 10.10 g/dL (11.27-16.99) L 09/22/23 11:27 Hct 30.2 % (37-53) L 09/22/23 11:27 MCV 103.1 fl (82-101) H 09/22/23 11:27 MCH 34.5 pg (27-33) H 09/22/23 11: MCHC 33.4 g/dL (30-55) 09/22/23 11:27 RDW 20.3 % (12.1-15.1) H 09/22/23 11:27 Plt Count 182 10^3/cmm (157-399) 09/22/23 11:27 MPV 11.2 fL (7.4-10.4) H 09/22/23 11:27 Neut % (Auto) 66.3 % 09/22/23 11:27 Lymph % (Auto) 12.1 % 09/22/23 11: [place] % (Auto) 14.9 % 09/22/23 11:27 Eos % (Auto) 0.2 % 09/22/23 11:27 Baso % (Auto) 1.2 % 09/22/23 11:27 Neut # (Auto) 6.61 10^3/uL (1.8-7.7) 09/22/23 11:27 Lymph # (Auto) 1.2 10^3/uL (0.8-4.8) 09/22/23 11:27 [place] # (Auto) 1.5 10^3/uL (0.2-0.9) H 09/22/23 11:27 Eos # (Auto) 0.0 10^3/uL (0.0-0.8) 09/22/23 11:27 Baso # (Auto) 0.1 10^3/uL (0.0-0.1) 09/22/23 11:27 Nucleated RBC % (auto) 3.3 % 09/22/23 11:27 Nucleated RBCs # 0.3 /100WBC 09/22/23 11:27 Sodium 135 mmol/L (136-145) L 09/22/23 11:27 Potassium 4.4 mmol/L (3.5-5.1) 09/22/23 11:27 Chloride 98 mmol/L (98-107) 09/22/23 11:27 Carbon Dioxide 23 mmol/L (22-29) 09/22/23 11:27 Anion Gap 18.4 (5-19) 09/22/23 11:27 BUN 42 mg/dL (8-23) H 09/22/23 11:27 Creatinine 2.0 mg/dL (0.7-1.2) H 09/22/23 11:27 GFR Calculation Not Reportable 09/22/23 11:27 Glucose 133 mg/dL (65-115) H 09/22/23 11:27 Calculated Osmolality 292 mOsm/kg (285-295) 09/22/23 11:27 Calcium 8.9 mg/dL (8.5-10.5) 09/22/23 11:27 Magnesium 2.3 mg/dL (1.7-2.3) 09/22/23 11:27 Total Bilirubin 2.2 mg/dL (0.15-1.2) H 09/22/23 11:27 AST 101 U/L (0-40) H 09/22/23 11:27 ALT 46 U/L (0-41) H 09/22/23 11:27 Alkaline Phosphatase 40 U/L (40-130) 09/22/23 11:27 Troponin T Baseline 55 ng/L (0-15) H 09/22/23 11:27 Troponin T 120 Minute 51.03 ng/L (0-15) H 09/22/23 13:19 Delta Troponin T -3.97 ABS# (0-10) L 09/22/23 13:19 NT-Pro-B Natriuret Pep 5131 pg/mL (0-450) H 09/22/23 11:27 Total Protein 6.1 g/dL (6.6-8.7) L 09/22/23 11:27 Albumin 4.1 g/dL (3.5-5.2) 09/22/23 11:27 Globulin 2.0 g/dL (1.3-4.6) 09/22/23 11:27 All radiology interpretation(s) finalized by discharge EKG Data EKG 1: I personally reviewed and interpreted this EKG as follows: EKG Interpretation Date: 09/22/23 EKG interpretation time: 11:25 Prior EKG tracings: available for review Interpretation: Ventricular rate 92 bpm, QRS duration 149, QTc of 462, atrial fibrillation with aberrant or PVC, intraventricular conduction delay Discharge Plan Discharge Patient Disposition: Placed in Observation Clinical Impression: Acute kidney injury, Elevated liver enzymes CHF (congestive heart failure) Qualifiers: Heart failure type: unspecified Heart failure chronicity: acute on chronic Qualified Code(s): I50.9 - Heart failure, unspecified Coding Level of Care Code ED Manufacturing Recruiter for Maggie Mcgrath
[2023-09-22 11:54] LABS: Troponin(5th) Baseline 55 ng/L (0-15)
--- NOTE | 2023-09-22 12:01 | XR_ITS ---
WS: [id number] Examination: XR chest 2V* [id number] Reason for Exam: dyspnea, abnormal portable cxr Date: 09/22/2023, 12:37 p.m. Comparison: 09/22/2023, 11:47 a.m. Findings: The heart is enlarged. The mediastinum not widened. Again sternal wires and a subcutaneous monitoring devices in place. The lungs are hyperinflated. There is apical thickening and scarring. There is no pulmonary edema There is consolidative change suspected at the left base with small effusions. Again the focal opacity projected over the right base is noted. Impression: Dominant left basilar opacity is noted, this is felt to represent consolidation and effusion. A small right effusion is suspected on this study as well.
[2023-09-22 12:13] LABS: Slide Review Slide Review Perform
[2023-09-22 12:25] LABS: Alanine Aminotransferase 46 U/L (0-41); Albumin Level 4.1 g/dL (3.5-5.2); Alkaline Phosphatase 40 U/L (40-130); Anion Gap 18.4 (5-19); Aspartate Amino Transferase 101 U/L (0-40); Blood Urea Nitrogen 42 mg/dL (8-23); Calcium 8.9 mg/dL (8.5-10.5); Carbon Dioxide 23 mmol/L (22-29); Chloride 98 mmol/L (98-107); Glucose 133 mg/dL (65-115); Magnesium 2.3 mg/dL (1.7-2.3); NT Pro B Type Natriuretic Pept 5131 pg/mL (0-450); Osmolality Calculated 292 mOsm/kg (285-295); Potassium 4.4 mmol/L (3.5-5.1); Sodium 135 mmol/L (136-145); Total Bilirubin 2.2 mg/dL (0.15-1.2); Total Protein 6.1 g/dL (6.6-8.7)
[2023-09-22 12:27] LABS: Creatinine Clr Calc Pharmacy 30.2572
--- NOTE | 2023-09-22 13:34 | ECG_ITS ---
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 Measurements Intervals [place] Rate: 90 P: 0 FL: 0 QRS: 98 QRSD: 151 T: 37 QT: 412 QTc: 506 Interpretive Statements ATRIAL FIBRILLATION BORDERLINE RIGHT AXIS DEVIATION [QRS AXIS > 90] INTRAVENTRICULAR CONDUCTION DELAY [130+ ms QRS DURATION] ST ELEVATION, CONSIDER INFERIOR INJURY [MARKED ST ELEVATION W/O NORMALLY INFLECTED T-WAVE IN II/aVF] ACUTE MA Compared to ECG 09/22/2023 11:25:01 ST (T wave) deviation now present Myocardial infarct finding now present Ventricular premature complex(es) no longer present Aberrant conduction of supraventricular beat(s) no longer present Electronically Signed On 09-22-2023 20:17:09 NUCLEAR MEDICINE CHIEF TECHNOLOGIST by Hugh Alvarado M.D. [id number]
[2023-09-22 13:42] LABS: Troponin 5 2HR 51.03 ng/L (0-15)
[2023-09-22 13:43] LABS: Troponin 5 2HR Delta -3.97 ABS# (0-10)
[2023-09-22] MEDS: FUROsemide 10 mg/mL SDV 10mL 60 MG IVP (15:01)
--- NOTE | 2023-09-22 16:26 | P.HP_ITS ---
Providers/Chief Complaint 2 Admitting Physician: Justyn Winter MD Primary Care Provider: Nato Diggs Chief Complaint: sob History of Present Illness Cain Simpson is a 87 year old male with past medical history of A-fib, hypertension, hyperlipidemia, valvular heart disease, chronic anticoagulation with dabigatran who presents to the ER today because of worsening weakness over the last few weeks, difficulty in breathing which has been getting worse over the last 1 week. As per the patient symptoms or difficulty breathing has been getting worse over a month but acutely over the last 1 week associated with worsening on lying down and minimal ambulation. Patient otherwise denies any nausea vomiting, headache, dizziness, chest pain, palpitations, sick contacts, runny nose, cough or subjective fever fever. Patient had presented to the ER with similar symptoms on 818 for which he was advised to increase the dose of Lasix to 60 mg from 40 mg and to hold off on his antihypertensives during that time. Review of Systems 2 General: Reports: 10 or more systems reviewed and unremarkable except in HPI and below Const: Denies: fever(s), chills, body aches, change in appetite, change in weight, malaise, night sweats, diaphoresis, change in sleep pattern, daytime sleepiness or snoring Eyes: Denies: change in vision, blurry vision, photophobia, eye discomfort or eye discharge ENMT: Denies: throat pain, enlarged tonsils, hoarseness, mouth pain, oral sores, dry mouth, tinnitus, nasal congestion or post nasal drip Card: Denies: chest pain, palpitations, irregular heart rhythm, edema, swelling of feet/ankles, lightheadedness, syncope, pre-syncope, dyspnea on exertion, orthopnea, leg pain with exertion or acrocyanosis Resp: Denies: dyspnea, productive cough, non-productive cough, wheezing, stridor, pain on inspiration, change in phlegm color, hemoptysis or chest congestion GI: Denies: abdominal pain, nausea, vomiting, hematemesis, coffee ground emesis, dysphagia, heartburn, diarrhea, constipation, bloating, GI cramping, change in bowel habits, pain on defecation, hematochezia or melena : Denies: flank pain, difficulty urinating, dysuria, urinary frequency, urinary urgency, urinary hesitancy, urinary dribbling, difficulty starting urination, change in urine stream, nocturia or hematuria Musc: Denies: neck pain, back pain, extremity pain, joint pain, joint swelling, joint redness, joint stiffness or limited range of motion Neuro: Denies: headache(s), numbness in extremities, weakness in extremities, sensory changes, lack of coordination, difficulty walking, frequent falls, dizziness, vertigo, confusion, Slurred speech present, difficulty communicating thoughts or seizure-like activity Psych: Denies: anxiety, depression, mood swings, panic attacks, hopelessness or irritability Endo: Denies: polyuria, polydipsia, tired all the time, cold intolerance, excessive sweating, flushing or heat intolerance Александр/Lymph: Denies: easy bruising or easy bleeding All/Imm: Denies: tongue swelling, facial swelling or acute wheezing Medications/Allergies Home Medications Medication Instructions Recorded Confirmed Last Taken Type allopurinol 300 mg tablet 300 mg PO BEDTIME 08/08/19 09/22/23 09/21/23 History dabigatran etexilate 75 mg capsule 75 mg PO BID 08/08/19 09/22/23 09/22/23 History (Pradaxa) ezetimibe 10 mg tablet 10 mg PO BEDTIME 08/08/19 09/22/23 09/21/23 History fenofibrate 160 mg tablet 160 mg PO DAILY 08/08/19 09/22/23 09/22/23 History lisinopril 10 mg tablet 10 mg PO BEDTIME 08/08/19 09/22/23 09/21/23 History potassium chloride 20 mEq 20 meq PO DAILY 08/08/19 09/22/23 09/22/23 History tablet,extended release(part/cryst) (Klor-Con M) tamsulosin 0.4 mg capsule 0.4 mg PO DAILY 08/08/19 09/22/23 09/22/23 History multivitamin 1 tab PO DAILY 10/09/20 09/22/23 09/18/23 History vitamin B complex (B 1 tab PO DAILY 10/09/20 09/22/23 09/22/23 History Complex-Vitamin B12 tablet) isosorbide mononitrate 30 mg 30 mg PO DAILY 04/16/21 09/22/23 09/22/23 History tablet,extended release 24 hr nitroglycerin 0.4 mg sublingual 0.4 mg sublingual Q5M PRN chest 04/15/22 09/22/23 Unknown Rx tablet (Nitrostat) pain #25 tabs furosemide 40 mg tablet 60 mg (1.5 x 40 mg) PO QAM #20 tabs 09/19/23 09/22/23 09/22/23 Rx Allergies Allergy/AdvReac Type Severity Reaction Status Date / Time adhesive tape Allergy unknown Verified 04/28/23 08:58 gabapentin Allergy itching Verified 04/28/23 08:58 and rash PFSH Acute 2 PFSH: Medical History (Updated 09/22/23 @ 16:39 by Justyn Winter MD) Shortness of breath Lower urinary tract symptoms (LUTS) Postprocedural membranous urethral stricture Gross hematuria Edema, peripheral ASHD (arteriosclerotic heart disease) Atrial fibrillation Hypertension Hyperlipidemia Valvular heart disease Right inguinal hernia Diverticulosis BPH (benign prostatic hyperplasia) Erectile dysfunction Incomplete bladder emptying Prostate cancer Surgical History Status post cataract extraction Status post appendectomy Status post coronary artery bypass graft Status post bilateral inguinal hernia repair Family History Father , AT AGE 68-[place] No problems noted. Mother , OF STOMACH CANCER AT AGE 75 Diabetes Other CAD (coronary artery disease) Cancer Hypertension Denies family history of Clotting disorder Dementia Chronic kidney disease (CKD) Suicide Anesthesia complication Bleeding disorder Lung disease Stroke Social History Smoking and tobacco/nicotine status: former use of tobacco/nicotine Alcohol intake: never Substance/Drug Use: never Marital status: Current occupational status: retired Vitals/I&O/Wt Last Vital Signs Temp 97.4 F L 09/22/23 10:45 Pulse 97 09/22/23 16:20 Resp 24 H 09/22/23 16:20 BP 123/76 09/22/23 16:20 Pulse Ox 97 09/22/23 16:20 O2 Del Method Room Air 09/22/23 15:55 Weight last 48 hrs Weight 94.404 kg Weight 81.647 kg Data 09/22/23 11:27 09/22/23 11:27 A&P Assessment and plan (1) Generalized weakness: Unknown cause. Could be in setting of congestive heart failure. Hemoglobin seems to be stable at 10.10. Check iron panel, vitamin B12, folate level, TSH. (2) Congestive heart failure: Patient has history of diastolic heart failure and right-sided heart failure as well. Last known echocardiogram from October 2022 shows EF of 60%, moderately increased RV size, moderately increased RV size with normal RV systolic function, PASP of 54 mmHg with severe TR. Patient does have ANYI and transaminitis right now consistent with the possibility of right-sided heart failure. Start on IV Lasix 60 mg twice daily. Strict input output charting, daily weights. Prefer Daniels catheterization though patient is reluctant given history of prostate cancer in the past. Will plan for bladder scan. If patient is retaining given ANYI we will plan for Daniels catheterization. He is agreeable with the plan. Fluid restriction up to 1500 cc. (3) Acute kidney injury: Baseline creatinine from last year normal. Currently 2. Earlier in August 01 0.6. Medical reconciliation done for nephrotoxic drugs. Hold off on lisinopril. Cannot rule out CRS. Lasix as above. Monitor BMP daily. (4) Valvular heart disease: (5) Severe tricuspid regurgitation: (6) Status post coronary artery bypass graft: (7) Atrial fibrillation: Currently rate controlled. If needed will start on low-dose beta-juan. Continue with home dose of dabigatran. Qualifiers: Atrial fibrillation type: other persistent Qualified Code(s): I48.19 - Other persistent atrial fibrillation (8) Transaminitis: Plan Hypertension: Goal blood pressure less than 140/90 mmHg. Continue with home dose of Imdur. Uptitrate as for goal blood pressure. If needed will add beta- juan. Hold off on lisinopril for now. CODE STATUS: Discussed in detail with the patient. Patient's family including and daughter will be the DPOA. Full code. Cardiac diet. Protonix for PUD prophylaxis Pradaxa will l Help for DVT Prophylaxis Attestations 2 Medical Necessity Statement*: Admission for more than 2 midnights for management of congestive heart failure with right-sided heart failure leading to acute kidney injury and generalized weakness Diagnoses Generalized weakness R53.1 Congestive heart failure I50.9 Acute kidney injury N17.9 Valvular heart disease I38 Severe tricuspid regurgitation I07.1 Status post coronary artery bypass graft Z95.1 Other persistent atrial fibrillation I48.19 Atrial fibrillation type: other persistent Transaminitis R74.01
--- NOTE | 2023-09-22 16:39 | CTR_ITS ---
PROCEDURE INFORMATION: Exam: CT Chest Without Contrast; Diagnostic Exam date and time: 09/22/2023 5:06 PM Age: 87 years old Clinical indication: Shortness of breath; Prior surgery; Surgery date: 6+ months; Surgery type: Heart; Additional info: Shortness of breath, left-sided pleural effusion TECHNIQUE: Imaging protocol: Diagnostic computed tomography of the chest without contrast. Sagittal and coronal reformatted images were created and reviewed. Radiation optimization: All CT scans at this facility use at least one of these dose optimization techniques: automated exposure control; mA and/or kV adjustment per patient size (includes targeted exams where dose is matched to clinical indication); or iterative reconstruction. COMPARISON: CR XR chest 2V* [id number] 09/22/2023 12:36 PM RADIATION DOSE METRICS: Total DLP (mGy-cm): 389 FINDINGS: Limitations: Evaluation of the mediastinum and vasculature is limited without intravenous contrast. Trachea: Tracheobronchial structures are patent. Lungs: Dependent atelectasis in the posterior left upper lobe. Multiple calcified granulomas in the right lung. Pleural spaces: Small right and moderate/large left pleural effusions with compressive atelectasis in both posterior lungs. Bilateral diaphragmatic and pleural calcifications. 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 No pneumothorax. Heart: Stable marked enlargement of the heart. Small pericardial effusion. UHeart: Calcification of the aortic valve. Coronary arteries: Moderate atherosclerotic calcification in the coronary arteries. Esophagus: The esophagus is unremarkable. Mediastinal space: No mediastinal hematoma. No pneumomediastinum. Lymph nodes: No lymphadenopathy. Vasculature: Moderate atherosclerotic changes in the visualized arteries. No evidence for aortic aneurysm. Pulmonary arteries are unremarkable. Pulmonary veins are unremarkable. Liver: Single calcified granuloma in the liver. Gallbladder and bile ducts: Multiple small stones in the visualized gallbladder. No dilatation of the visualized bile ducts. Pancreas: The visualized pancreas is unremarkable. No pancreatic ductal dilatation. Spleen: The spleen is unremarkable. Adrenal glands: The right and left adrenal glands are unremarkable. Kidneys and ureters: Multiple cysts seen in the kidneys bilaterally, some are partially visualized. The largest on the right measures 1.1 cm. The largest in the left kidney measures at least 4.2 cm. Bones/joints: Bones are diffusely osteopenic. Degenerative changes in the spine and shoulders. Soft tissues: Mild body wall edema. CT/CT chest wo con [id number] IMPRESSION: 1. Small right and moderate/large left pleural effusions with compressive atelectasis in both posterior lungs. 2. Dependent atelectasis in the posterior left upper lobe. 3. Bilateral diaphragmatic and pleural calcifications. 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 4. Multiple small stones in the visualized gallbladder. 5. Mild body wall edema. 6. Stable marked cardiomegaly. 7. Small pericardial effusion. 8. Incidental/nonacute findings are listed in the report. COMMENTS: Consistent with the [employer]'s Incidental Findings Committee white paper (J Am Arsen Radiol 2018): Any incidental renal lesion less than 1 cm or classified as too small to characterize, or any incidental cystic renal lesion characterized as simple-appearing, is likely benign. No follow-up imaging is recommended for these lesions per consensus recommendations based on imaging criteria.
--- NOTE | 2023-09-22 17:20 | ECG_ITS ---
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 Measurements Intervals [place] Rate: 101 P: 0 [place]: 0 QRS: 97 QRSD: 151 T: 1 QT: 398 QTc: 516 Interpretive Statements ATRIAL FIBRILLATION WITH RAPID VENTRICULAR RESPONSE WITH ABERRANT CONDUCTION OR VENTRICULAR PREMATURE COMPLEXES BORDERLINE RIGHT AXIS DEVIATION [QRS AXIS > 90] INTRAVENTRICULAR CONDUCTION DELAY [130+ ms QRS DURATION] Compared to ECG 09/22/2023 13:34:42 Ventricular premature complex(es) now present Aberrant conduction of supraventricular beat(s) now present ST (T wave) deviation no longer present Myocardial infarct finding no longer present Electronically Signed On 09-22-2023 20:25:34 OUTPATIENT SURGERY RN by Hugh Alvarado M.D. [id number]
[2023-09-22 17:30] LABS: Adenovirus Not Detected (NOT DETECT); Chlamydia Pneumoniae Not Detected (NOT DETECT); Coronavirus 229E,HKU1,NL63,OC4 Not Detected (NOT DETECT); Human Metapneumovirus Not Detected (NOT DETECT); Human Rhinovirus/Enterovirus Not Detected (NOT DETECT); Influenza A Not Detected (NOT DETECT); Influenza A H1 Not Detected (NOT DETECT); Influenza A H1-2009 Not Detected (NOT DETECT); Influenza A H3 Not Detected (NOT DETECT); Influenza B Not Detected (NOT DETECT); Mycoplasma Pneumoniae Not Detected (NOT DETECT); Parainfluenza Virus Type 1 Not Detected (NOT DETECT); Parainfluenza Virus Type 2 Not Detected (NOT DETECT); Parainfluenza Virus Type 3 Not Detected (NOT DETECT); Parainfluenza Virus Type 4 Not Detected (NOT DETECT); Respiratory Syncytial Virus A Not Detected (NOT DETECT); Respiratory Syncytial Virus B Not Detected (NOT DETECT); SARS-COV-2 Not Detected (NOT DETECT)
[2023-09-22 17:45] LABS: Procalcitonin 0.42 ng/mL (0-0.5); Thyroid Stimulating Hormone 5.53 uIU/mL (0.27-4.20)
[2023-09-22 17:56] LABS: Iron 33 ug/dL (59-158); Total Iron Binding Capacity 327 mcg/dl; Unsaturated Iron Binding 294 ug/dL (112-347)
[2023-09-22 18:04] LABS: Vitamin B12 > 2000 pg/mL (232-1245)
[2023-09-22] MEDS: pantoprazole 40 mg SDV IVP (18:08)
[2023-09-22 18:10] LABS: Add Urine Culture? Yes; Add Urine Microscopic? YES; Bacteria Urine TRACE /hpf; Bilirubin Urine Neg (Negative); Blood Urine 3+ (Negative); Glucose Urine UA Norm (Normal); Ketones Urine Negative (Negative); Leukocyte Esterase Urine 2+ (Negative); Nitrate Urine Negative (Negative); Protein Urine Neg (Negative); Specific Gravity, Urine 1.005 (1.005-1.030); Squamous Epithelial Cell Urine 0-4 /hpf (0-5); Urine Appearance SL Hazy (CLEAR); Urine Color Light yellow (Yellow); Urobilinogen Urine Norm (Negative); WBC Urine 25-40 /hpf (0-5); pH Urine 5 (5-7)
[2023-09-22 18:48] LABS: Troponin 5 6HR 55.95 ng/L (0-15); Troponin 5 6HR Delta 0.95 ng/L (0-12)
[2023-09-22] MEDS: trazodone 50 mg Tablet PO (19:55)
[2023-09-22] MEDS: allopurinol 100 mg Tablet PO (19:55)
[2023-09-23] VITALS (8 sets, daily range): BP systolic 83–109; BP diastolic 61–80; PULSE 85–100; RESP 17–18; TEMP 36.4–36.7; O2SAT 93–98; BMI 4139.8
[2023-09-23 03:55] LABS: Hematocrit 28.9 % (37-53); Mean Corpuscular HGB Conc 33.6 g/dL (30-55); Mean Corpuscular Hemoglobin 34.4 pg (27-33); Mean Corpuscular Volume 102.5 fl (82-101); Mean Platelet Volume 11.9 fL (7.4-10.4); Platelet Count 181 10^3/cmm (157-399); Red Blood Count 2.82 10^6/uL (3.85-5.65); Red Cell Distribution Width 20.2 % (12.1-15.1); White Blood Count 8.31 10^3/uL (3.29-11.43)
[2023-09-23 04:07] LABS: Estmated Average Glucose 103; Hemoglobin A1C 5.2 % (4.0-6.0)
[2023-09-23 04:14] LABS: Alanine Aminotransferase 49 U/L (0-41); Albumin Level 3.6 g/dL (3.5-5.2); Alkaline Phosphatase 41 U/L (40-130); Anion Gap 19.2 (5-19); Aspartate Amino Transferase 96 U/L (0-40); Blood Urea Nitrogen 50 mg/dL (8-23); Calcium 8.9 mg/dL (8.5-10.5); Carbon Dioxide 22 mmol/L (22-29); Chloride 100 mmol/L (98-107); Creatinine Clr Calc Pharmacy 32.2062; Globulin 2.6 g/dL (1.3-4.6); Glucose 120 mg/dL (65-115); Magnesium 2.3 mg/dL (1.7-2.3); Osmolality Calculated 299 mOsm/kg (285-295); Potassium 4.2 mmol/L (3.5-5.1); Sodium 137 mmol/L (136-145); Total Bilirubin 1.9 mg/dL (0.15-1.2); Total Protein 6.2 g/dL (6.6-8.7)
[2023-09-23 04:15] LABS: Chol HDL Ratio 3.89 mg/dL (1.0-5.00); Cholesterol 70 mg/dL (0-200); HDL Cholesterol 18 mg/dL (60-100); LDL Cholesterol Calculated 35 mg/dL (50-129); LDL HDL Ratio 1.94 RATIO (0.00-3.22); Triglycerides 86 mg/dL (0-150)
[2023-09-23 04:17] LABS: Slide Review Slide Review Perform
[2023-09-23 04:18] LABS: Absolute Segmented Neutrophil 5.7 10/cmm (1.6-7.1); Anisocytosis 2+; Corrected White Blood Count 7.9 10^3/cmm (4.8-10.8); Eosinophils 0 %; Lymphocytes 15 %; Monocytes Absolute 0.7 10^3/cmm (0.1-0.6); Platelet Estimate Normal (Normal); Segmented Neutrophils 68 %; Total Cells Counted 100 (0-100)
[2023-09-23 04:33] LABS: Folate Level 10.9 ng/mL (4.5-32.2)
[2023-09-23] MEDS: FUROsemide 10 mg/mL SDV 10mL 60 MG IVP ×2 (05:36→17:29)
--- NOTE | 2023-09-23 09:06 | PC.SOCIAL ---
IMM Update pg 2 of IMM updated and reviewed w/ patient. Copy provided and copy dated, initialed and placed in chart.
[2023-09-23] MEDS: multivitamin therapeutic Tablet 1 TAB PO (10:09)
[2023-09-23] MEDS: isosorbide mononitrate ER 30 mg Tablet PO (10:09)
[2023-09-23] MEDS: tamsulosin 0.4 mg Capsule 0.400000000000000022 MG PO (10:10)
[2023-09-23] MEDS: metOLazone 5 MG Tablet PO (12:17)
--- NOTE | 2023-09-23 13:31 | P.PN_ITS ---
Subjective 2 Subjective: No acute events overnight. Seen with family at bedside. Patient denies any nausea, vomiting, headache. Still has orthopnea and difficulty in breathing on laying down. He thinks he will feel better once he goes back home. Agreeable to continue to stay. Vitals/I&O/Wt Last Vital Signs Temp 97.7 F 09/23/23 11:57 Pulse 100 09/23/23 11:57 Resp 17 09/23/23 04:00 BP 109/80 09/23/23 11:57 Pulse Ox 93 09/23/23 11:57 O2 Del Method Room Air 09/23/23 11:57 09/22/23 09/23/23 09/23/23 22:59 06:59 14:59 Intake Total 860 / 860 500 / 1360 240 / 240 Output Total 760 / 760 300 / 1060 900 / 900 Balance 100 / 100 200 / 300 -660 / -660 Weight last 48 hrs Weight 96.162 kg Weight 96.162 kg Weight 94.404 kg Weight 81.647 kg Physical Exam 2 Narrative: General: No acute distress, AO x3 HEENT: PERRLA, pupils bilaterally equal and reactive Chest: Normal vesicular breath sounds, no added sounds, equal good air entry bilaterally CVS: S1-S2 regular, pansystolic murmur in fourth intercostal left retrosternal area, no tachycardia, no gallops, no rubs Abdomen: Soft, nontender, no organomegaly, bowel sounds present Neuro: No focal deficits, no facial deformity, AO x3, power 5/5 in all limbs Data 09/23/23 03:10 09/23/23 03:10 A&P Assessment and plan (1) Generalized weakness: Unknown cause. Could be in setting of congestive heart failure. Hemoglobin seems to be stable at 10.10. Check iron panel, vitamin B12, folate level, TSH. (2) Congestive heart failure: Patient has history of diastolic heart failure and right-sided heart failure as well. Last known echocardiogram from October 2022 shows EF of 60%, moderately increased RV size with normal RV systolic function, PASP of 54 mmHg with severe TR. Patient does have ANYI and transaminitis right now consistent with the possibility of right-sided heart failure. Start on IV Lasix 60 mg twice daily. Strict input output charting, daily weights. Prefer Daniels catheterization though patient is reluctant given history of prostate cancer in the past. Will plan for bladder scan. If patient is retaining given ANYI we will plan for Daniels catheterization. He is agreeable with the plan. Fluid restriction up to 1500 cc. (3) Acute kidney injury: Baseline creatinine from last year normal. Currently 2. Earlier in August 01 0.6. Medical reconciliation done for nephrotoxic drugs. Hold off on lisinopril. Cannot rule out CRS. Lasix as above. Monitor BMP daily. (4) Valvular heart disease: (5) Severe tricuspid regurgitation: (6) Status post coronary artery bypass graft: (7) Atrial fibrillation: Currently rate controlled. If needed will start on low-dose beta-juan. Continue with home dose of dabigatran. Qualifiers: Atrial fibrillation type: other persistent Qualified Code(s): I48.19 - Other persistent atrial fibrillation (8) Transaminitis: Plan Hypertension: Goal blood pressure less than 140/90 mmHg. Continue with home dose of Imdur. Uptitrate as for goal blood pressure. If needed will add beta- juan. Hold off on lisinopril for now. CODE STATUS: Discussed in detail with the patient. Patient's family including and daughter will be the DPOA. Full code. Cardiac diet. Protonix for PUD prophylaxis Pradaxa will l Help for DVT Prophylaxis Plan for the day: Patient continues to have orthopnea and congestive heart failure symptoms. Renal function slightly worsened today. Patient currently euvolemic with equal intake output since admission. Continue with IV Lasix 60 mg twice daily. Will give 1 dose of metolazone today. Will dose metolazone accordingly. Fluid restriction up to 1500 cc. Discussed in detail with the patient regarding lifestyle modification for congestive heart failure. Discussed the need and importance of fluid restriction. Patient is agreeable. Transaminitis slightly improving today. Monitor electrolytes. Potassium stable. Sodium level improving. Repeat BMP in AM. Monitor blood pressures. Follow-up urine culture. Attestations 2 Medical Necessity Statement*: Requires further hospitalization for management of congestive heart failure with severe tricuspid regurgitation and symptoms of right-sided heart failure Diagnoses Generalized weakness R53.1 Congestive heart failure I50.9 Acute kidney injury N17.9 Valvular heart disease I38 Severe tricuspid regurgitation I07.1 Status post coronary artery bypass graft Z95.1 Other persistent atrial fibrillation I48.19 Atrial fibrillation type: other persistent Transaminitis R74.01
[2023-09-23] MEDS: pantoprazole 40 mg SDV IVP (17:29)
[2023-09-23] MEDS: allopurinol 100 mg Tablet PO (20:04)
[2023-09-23] MEDS: trazodone 50 mg Tablet PO (20:04)
[2023-09-24] VITALS (8 sets, daily range): BP systolic 95–123; BP diastolic 63–71; PULSE 85–109; RESP 18–22; TEMP 36.4–36.9; O2SAT 92–97
[2023-09-24] MEDS: FUROsemide 10 mg/mL SDV 10mL 60 MG IVP (04:58)
[2023-09-24] MEDS: tamsulosin 0.4 mg Capsule 0.400000000000000022 MG PO (08:41)
[2023-09-24] MEDS: isosorbide mononitrate ER 30 mg Tablet PO (08:41)
[2023-09-24] MEDS: multivitamin therapeutic Tablet 1 TAB PO (08:41)
[2023-09-24] MEDS: pantoprazole 40 mg SDV IVP (15:41)
--- NOTE | 2023-09-24 15:47 | P.PN_ITS ---
Subjective 2 Subjective: Patient reports feeling a little better today. He has been following his fluid intake recommendations. Denies any problems with chest pain or shortness of breath today. Medications: Reviewed: Yes Vitals/I&O/Wt Last Vital Signs Temp 97.7 F 09/24/23 11:33 Pulse 87 09/24/23 11:33 Resp 18 09/24/23 04:00 BP 102/66 09/24/23 11:33 Pulse Ox 94 09/24/23 11:33 O2 Del Method Room Air 09/24/23 11:33 09/24/23 09/24/23 09/24/23 06:59 14:59 22:59 Intake Total 900 / 1260 580 / 580 Output Total 1200 / 3500 2150 / 2150 Balance -300 / -2240 -1570 / -1570 Weight last 48 hrs Weight 209 lb 4.8 oz Weight 212 lb Weight 212 lb Weight 208 lb 2 oz Physical Exam 2 Narrative: General: Cooperative patient in no apparent distress. Well developed. HEENT: Normocephalic, Atraumatic. External ears normal. Nasal passages patent without drainage. MMM. Heart: RRR. Resp: LCTA. No respiratory distress, no use of accessory muscles. Abd: Soft, non-tender. Non-distended. Extremities: No edema. Skin: No rash or lesions on exposed areas. Data 09/23/23 03:10 09/23/23 03:10 Micro: Microbiology 09/22/23 16:40 Urine Culture - Preliminary Urine,Clean Catch Strep species, gamma-hemolytic A&P Assessment and plan (1) Generalized weakness: (2) Congestive heart failure: (3) Acute kidney injury: (4) Valvular heart disease: (5) Severe tricuspid regurgitation: (6) Status post coronary artery bypass graft: (7) Atrial fibrillation: Qualifiers: Atrial fibrillation type: other persistent Qualified Code(s): I48.19 - Other persistent atrial fibrillation (8) Transaminitis: Plan 87-year-old male admitted for generalized weakness, shortness of breath, and chest discomfort. Continue close inpatient monitoring. Patient appears euvolemic. He has no lower extremity edema. His chest exam is improved. Stop IV lasix and switch to 40 mg daily. Cr has increased to 2.0 with BUN elevated. He may be a little dry from diuresis. Recheck labs in the A.M. HR and BP are both improved and stable. He is on a 1500ml/day restriction. Continue with close I/O's and daily weights. Hgb is currently stable at 9.7, which is near his baseline. Recheck LFT's tomorrow. Still elevated. Code Status: Full code IVF: None DVT PPx: Pradaxa GI PPx: Protonix ABx: None Diet: Cardiac Discharge plan: Home when able Attestations 2 Medical Necessity Statement*: Requires further hospitalization for management of congestive heart failure with severe tricuspid regurgitation and symptoms of right-sided heart failure Coding Level of Care Code Acute Code for Chg Fwd Moderate MDM includes number and complexity of problems actively addressed during encounter, amount and/or complexity of data reviewed/ordered and described risk of complication, morbidity or mortality of management as documented Diagnoses Generalized weakness R53.1 Congestive heart failure I50.9 Acute kidney injury N17.9 Valvular heart disease I38 Severe tricuspid regurgitation I07.1 Status post coronary artery bypass graft Z95.1 Other persistent atrial fibrillation I48.19 Atrial fibrillation type: other persistent Transaminitis R74.01
[2023-09-24] MEDS: trazodone 50 mg Tablet PO (20:10)
[2023-09-24] MEDS: allopurinol 100 mg Tablet PO (20:10)
[2023-09-25 04:17] VITALS: BP 82/58; PULSE 86; RESP 20; TEMP 36.5; O2SAT 96
[2023-09-25 07:11] VITALS: BP 113/76; PULSE 94; TEMP 36.5; O2SAT 94
[2023-09-25] MEDS: tamsulosin 0.4 mg Capsule 0.400000000000000022 MG PO (08:17)
[2023-09-25] MEDS: multivitamin therapeutic Tablet 1 TAB PO (08:17)
[2023-09-25] MEDS: isosorbide mononitrate ER 30 mg Tablet PO (08:17)
[2023-09-25] MEDS: FUROsemide 40 mg Tablet PO (08:18)
[2023-09-25 11:24] VITALS: BP 102/69; PULSE 83; RESP 16; TEMP 36.4; O2SAT 94
[2023-09-25 11:48] LABS: Basophils # 0.1 10^3/uL (0.0-0.1); Basophils % 1.6 %; Eosinophils # 0.1 10^3/uL (0.0-0.8); Eosinophils % 0.8 %; Hematocrit 31.8 % (37-53); Lymphocytes # 1.3 10^3/uL (0.8-4.8); Mean Corpuscular HGB Conc 32.7 g/dL (30-55); Mean Corpuscular Hemoglobin 34.3 pg (27-33); Mean Platelet Volume 11.1 fL (7.4-10.4); Monocytes # 1.2 10^3/uL (0.2-0.9); Monocytes % 15.9 %; Neutrophils # 4.19 10^3/uL (1.8-7.7); Nucleated Red Blood Cells # 0.1 /100WBC; Nucleated Red Blood Cells % 1.1 %; Platelet Count 226 10^3/cmm (157-399); Red Blood Count 3.03 10^6/uL (3.85-5.65); Red Cell Distribution Width 20.3 % (12.1-15.1); White Blood Count 7.48 10^3/uL (3.29-11.43)
[2023-09-25 11:58] LABS: Slide Review Slide Review Perform
[2023-09-25 11:59] LABS: Neutrophils % 64.7 %
[2023-09-25 12:13] LABS: Alanine Aminotransferase 45 U/L (0-41); Albumin Level 3.7 g/dL (3.5-5.2); Alkaline Phosphatase 38 U/L (40-130); Anion Gap 16.4 (5-19); Aspartate Amino Transferase 70 U/L (0-40); Blood Urea Nitrogen 61 mg/dL (8-23); Calcium 9.2 mg/dL (8.5-10.5); Carbon Dioxide 25 mmol/L (22-29); Chloride 94 mmol/L (98-107); Creatinine Clr Calc Pharmacy 38.1691; Globulin 2.5 g/dL (1.3-4.6); Glucose 128 mg/dL (65-115); Magnesium 2.3 mg/dL (1.7-2.3); Osmolality Calculated 293 mOsm/kg (285-295); Potassium 3.4 mmol/L (3.5-5.1); Sodium 132 mmol/L (136-145); Total Bilirubin 1.9 mg/dL (0.15-1.2); Total Protein 6.2 g/dL (6.6-8.7)
--- NOTE | 2023-09-25 13:10 | PM.DCS ---
Discharge Providers Date of Admission: 09/22/23 16:18 Date of Discharge: September 25, 2023 Attending Provider at Admission: Justyn Winter MD Attending Provider at Discharge: Nato Almaguer DO Primary Care Provider: Nato Diggs Diagnoses at Discharge Discharge Diagnosis (1) Generalized weakness: Status: Resolved (2) Congestive heart failure: Status: Inactive (3) Acute kidney injury: Status: Resolved (4) Valvular heart disease: Status: Inactive (5) Severe tricuspid regurgitation: Status: Inactive (6) Status post coronary artery bypass graft: Status: Inactive (7) Atrial fibrillation: Status: Acute Qualifiers: Atrial fibrillation type: other persistent Qualified Code(s): I48.19 - Other persistent atrial fibrillation (8) Transaminitis: Status: Resolved Reason for Visit Reason for Visit: sob Hospital Course Hospital Course Cain Simpson is a 87 year old male with past medical history of A-fib, hypertension, hyperlipidemia, valvular heart disease, chronic anticoagulation with dabigatran who presented to the ER because of worsening weakness over the last few weeks, difficulty in breathing which has been getting worse over the last 1 week. As per the patient symptoms or difficulty breathing has been getting worse over a month but acutely over the last 1 week associated with worsening on lying down and minimal ambulation. Patient otherwise denies any nausea vomiting, headache, dizziness, chest pain, palpitations, sick contacts, runny nose, cough or subjective fever fever. Patient had presented to the ER with similar symptoms on 818 for which he was advised to increase the dose of Lasix to 60 mg from 40 mg and to hold off on his antihypertensives during that time. Patient reported that he was drinking about 2 gallons of water a day because he thought he this was healthy. He had a good response to diuretics. He was admitted to the hospital and started on diuresis. He had good response after the initial 24 hours, and stated that he feels much better. In addition he was started on a fluid restriction of 1500 mL/day. His lisinopril was held due to concern for ANYI. He continued to improve with diuresis, and was breathing normally on room air. His vitals also improved. His transaminitis resolved prior to discharge. Patient does have a follow-up appointment with Dr. Alvarado in early October. At discharge he was told to continue drinking about 2 L of water a day at [place], and to continue with his Lasix dose of 60 mg a day. He was then discharged in improved and stable condition. Physical Exam Narrative: General: Cooperative patient in no apparent distress. Well developed. HEENT: Normocephalic, Atraumatic. External ears normal. Nasal passages patent without drainage. MMM. Heart: RRR. Resp: LCTA. No respiratory distress, no use of accessory muscles. Abd: Soft, non-tender. Non-distended. Extremities: No edema. Skin: No rash or lesions on exposed areas. Discharge Data Studies Completed and Pending Completed Studies During Hospitalization Category Date Time Status CT chest wo con [id number] Routine Cat Scan 09/22/23 16:39 Completed XR chest 1V portable [id number] Stat Exams 09/22/23 11:20 Completed XR chest 2V* [id number] Stat Exams 09/22/23 12:01 Completed Pending at discharge Category Date Time Status Urine Culture Routine Lab 09/22/23 16:40 Results Radiology Impressions Chest CT 09/22/23 16:39 IMPRESSION: 1. Small right and moderate/large left pleural effusions with compressive atelectasis in both posterior lungs. 2. Dependent atelectasis in the posterior left upper lobe. 3. Bilateral diaphragmatic and pleural calcifications. 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 4. Multiple small stones in the visualized gallbladder. 5. Mild body wall edema. 6. Stable marked cardiomegaly. 7. Small pericardial effusion. 8. Incidental/nonacute findings are listed in the report. COMMENTS: Consistent with the [employer]'s Incidental Findings Committee white paper (J Am Arsen Radiol 2018): Any incidental renal lesion less than 1 cm or classified as too small to characterize, or any incidental cystic renal lesion characterized as simple-appearing, is likely benign. No follow-up imaging is recommended for these lesions per consensus recommendations based on imaging criteria. Laboratory Results WBC 7.48 10^3/uL (3.29-11.43) 09/25/23 11:08 Corrected WBC 7.9 10^3/cmm (4.8-10.8) 09/23/23 03:10 RBC 3.03 10^6/uL (3.85-5.65) L 09/25/23 11:08 Hgb 10.40 g/dL (11.27-16.99) L 09/25/23 11:08 Hct 31.8 % (37-53) L 09/25/23 11:08 MCV 105.0 fl (82-101) H 09/25/23 11:08 MCH 34.3 pg (27-33) H 09/25/23 11:08 MCHC 32.7 g/dL (30-55) 09/25/23 11:08 RDW 20.3 % (12.1-15.1) H 09/25/23 11:08 Plt Count 226 10^3/cmm (157-399) 09/25/23 11:08 MPV 11.1 fL (7.4-10.4) H 09/25/23 11:08 Neut % (Auto) 64.7 % 09/25/23 11:08 Lymph % (Auto) 17.0 % 09/25/23 11:08 [place] % (Auto) 15.9 % 09/25/23 11:08 Eos % (Auto) 0.8 % 09/25/23 11:08 Baso % (Auto) 1.6 % 09/25/23 11:08 Neut # (Auto) 4.19 10^3/uL (1.8-7.7) 09/25/23 11:08 Lymph # (Auto) 1.3 10^3/uL (0.8-4.8) 09/25/23 11:08 [place] # (Auto) 1.2 10^3/uL (0.2-0.9) H 09/25/23 11:08 Eos # (Auto) 0.1 10^3/uL (0.0-0.8) 09/25/23 11:08 Baso # (Auto) 0.1 10^3/uL (0.0-0.1) 09/25/23 11:08 Nucleated RBC % (auto) 1.1 % 09/25/23 11:08 Total Counted 100 (0-100) 09/23/23 03:10 Atypical Lymphs % Not Reportable 09/23/23 03:10 Segmented Neutrophils 68 % 09/23/23 03:10 Abs Segm Neuts (Man) 5.7 10/cmm (1.6-7.1) 09/23/23 03:10 Band Neutrophils Not Reportable 09/23/23 03:10 Lymphocytes (Manual) 15 % 09/23/23 03:10 Monocytes (Manual) 9.0 % 09/23/23 03:10 Absolute Monocytes 0.7 10^3/cmm (0.1-0.6) H 09/23/23 03:10 Eosinophils (Manual) 0 % 09/23/23 03:10 Absolute Eosinophils 0.0 10^3/cmm (0.0-0.7) 09/23/23 03:10 Basophils (Manual) 0.0 % 09/23/23 03:10 Absolute Basophils 0.0 10^3/cmm (0.0-0.2) 09/23/23 03:10 Myelocytes 3.0 % 09/23/23 03:10 Nucleated RBCs 5.0 /100WBC (0-1) H 09/23/23 03:10 Nucleated RBCs # 0.1 /100WBC 09/25/23 11:08 Platelet Estimate Normal (Normal) 09/23/23 03:10 Anisocytosis 2+ H 09/23/23 03:10 Sodium 132 mmol/L (136-145) L 09/25/23 11:08 Potassium 3.4 mmol/L (3.5-5.1) L 09/25/23 11:08 Chloride 94 mmol/L (98-107) L 09/25/23 11:08 Carbon Dioxide 25 mmol/L (22-29) 09/25/23 11:08 Anion Gap 16.4 (5-19) 09/25/23 11:08 BUN 61 mg/dL (8-23) H 09/25/23 11:08 Creatinine 1.9 mg/dL (0.7-1.2) H 09/25/23 11:08 GFR Calculation Not Reportable 09/25/23 11:08 Glucose 128 mg/dL (65-115) H 09/25/23 11:08 Estimat Average Glucose 103 09/23/23 03:10 Hemoglobin A1c 5.2 % (4.0-6.0) 09/23/23 03:10 Calculated Osmolality 293 mOsm/kg (285-295) 09/25/23 11:08 Calcium 9.2 mg/dL (8.5-10.5) 09/25/23 11:08 Phosphorus 3.0 mg/dL (2.5-4.5) 09/23/23 03:10 Magnesium 2.3 mg/dL (1.7-2.3) 09/25/23 11:08 Iron 33 ug/dL (59-158) L 09/22/23 11:27 TIBC 327 mcg/dl 09/22/23 11:27 % Saturation 10.0 % (20-50) L 09/22/23 11:27 Unsat Iron Binding 294 ug/dL (112-347) 09/22/23 11:27 Total Bilirubin 1.9 mg/dL (0.15-1.2) H 09/25/23 11:08 AST 70 U/L (0-40) H 09/25/23 11:08 ALT 45 U/L (0-41) H 09/25/23 11:08 Alkaline Phosphatase 38 U/L (40-130) L 09/25/23 11:08 Troponin T Baseline 55 ng/L (0-15) H 09/22/23 11:27 Troponin T 120 Minute 51.03 ng/L (0-15) H 09/22/23 13:19 Delta Troponin T -3.97 ABS# (0-10) L 09/22/23 13:19 Troponin T Hi Sens 6Hr 55.95 ng/L (0-15) H 09/22/23 17:42 Troponin T Hi Sens 6Hr Delta 0.95 ng/L (0-12) 09/22/23 17:42 NT-Pro-B Natriuret Pep 5131 pg/mL (0-450) H 09/22/23 11:27 Total Protein 6.2 g/dL (6.6-8.7) L 09/25/23 11:08 Albumin 3.7 g/dL (3.5-5.2) 09/25/23 11:08 Globulin 2.5 g/dL (1.3-4.6) 09/25/23 11:08 Triglycerides 86 mg/dL (0-150) 09/23/23 03:10 Cholesterol 70 mg/dL (0-200) 09/23/23 03:10 LDL Cholesterol, Calc 35 mg/dL (50-129) L 09/23/23 03:10 HDL Cholesterol 18 mg/dL (60-100) L 09/23/23 03:10 LDL/HDL Ratio 1.94 RATIO (0.00-3.22) 09/23/23 03:10 Cholesterol/HDL Ratio 3.89 mg/dL (1.0-5.00) 09/23/23 03:10 Vitamin B12 > 2000 pg/mL (232-1245) H 09/22/23 11:27 Folate 10.9 ng/mL (4.5-32.2) 09/23/23 03:10 Procalcitonin 0.42 ng/mL (0-0.5) 09/22/23 11:27 TSH 5.53 uIU/mL (0.27-4.20) H 09/22/23 11:27 Urine Color Light yellow (Yellow) 09/22/23 16:40 Urine Appearance Sl hazy (CLEAR) A 09/22/23 16:40 Urine pH 5 (5-7) 09/22/23 16:40 Ur Specific Bruin 1.005 (1.005-1.030) 09/22/23 16:40 Urine Protein Neg (Negative) 09/22/23 16:40 Urine Glucose (UA) Norm (Normal) 09/22/23 16:40 Urine Ketones Negative (Negative) 09/22/23 16:40 Urine Blood 3+ (Negative) H 09/22/23 16:40 Urine Nitrate Negative (Negative) 09/22/23 16:40 Urine Bilirubin Neg (Negative) 09/22/23 16:40 Urine Urobilinogen Norm mg/dL (Negative) 09/22/23 16:40 Ur Leukocyte Esterase 2+ (Negative) H 09/22/23 16:40 Urine RBC 5-10 /hpf (0-2) H 09/22/23 16:40 Urine WBC 25-40 /hpf (0-5) H 09/22/23 16:40 Ur Squamous Epith Cells 0-4 /hpf (0-5) H 09/22/23 16:40 Amorphous Sediment Not Reportable 09/22/23 16:40 Urine Bacteria Trace /hpf (NONE) 09/22/23 16:40 Adenovirus (PCR) Not detected (NOT DETECT) 09/22/23 15:23 C. pneumoniae DNA (PCR) Not detected (NOT DETECT) 09/22/23 15:23 Coronavirus 229E (PCR) Not detected (NOT DETECT) 09/22/23 15:23 Human Metapneumovir PCR Not detected (NOT DETECT) 09/22/23 15:23 Influenza A (H1) PCR Not detected (NOT DETECT) 09/22/23 15:23 Influ A (H1/09) PCR Not detected (NOT DETECT) 09/22/23 15:23 Influenza A (H3) PCR Not detected (NOT DETECT) 09/22/23 15:23 Influenza Type A (PCR) Not detected (NOT DETECT) 09/22/23 15:23 Influenza Type B (PCR) Not detected (NOT DETECT) 09/22/23 15:23 M. pneumoniae (PCR) Not detected (NOT DETECT) 09/22/23 15:23 Parainfluenza 1 (PCR) Not detected (NOT DETECT) 09/22/23 15:23 Parainfluenza 2 (PCR) Not detected (NOT DETECT) 09/22/23 15:23 Parainfluenza 3 (PCR) Not detected (NOT DETECT) 09/22/23 15:23 Parainfluenza 4 (PCR) Not detected (NOT DETECT) 09/22/23 15:23 RSV Type A (PCR) Not detected (NOT DETECT) 09/22/23 15:23 RSV Type B (PCR) Not detected (NOT DETECT) 09/22/23 15:23 Entero/Rhino (PCR) Not detected (NOT DETECT) 09/22/23 15:23 SARS-CoV-2 (PCR) Not detected (NOT DETECT) 09/22/23 15:23 Vitals Last Vital Signs Temp 97.6 F 09/25/23 11:24 Pulse 83 09/25/23 11:24 Resp 16 09/25/23 11:24 BP 102/69 09/25/23 11:24 Pulse Ox 94 09/25/23 11:24 O2 Del Method Room Air 09/25/23 11:24 Discharge Plan Discharge Patient Disposition: Home Condition: Stable Prescriptions: New furosemide 40 mg Tablet 40 mg PO DAILY@0800 Qty: 30 0RF trazodone 50 mg Tablet 50 mg PO BEDTIME PRN (Reason: Sleep) Qty: 30 1RF Continued potassium chloride [Klor-Con M20] 20 mEq tablet,ER particles/crystals 20 meq PO DAILY lisinopril 10 mg tablet 10 mg PO BEDTIME fenofibrate 160 mg tablet 160 mg PO DAILY allopurinol 300 mg tablet 300 mg PO BEDTIME tamsulosin 0.4 mg capsule 0.4 mg PO DAILY ezetimibe 10 mg tablet 10 mg PO BEDTIME Pradaxa 75 mg capsule 75 mg PO BID isosorbide mononitrate 30 mg tablet extended release 24 hr 30 mg PO DAILY multivitamin Tablet 1 tab PO DAILY vitamin B complex [B Complex-Vitamin B12] Tablet 1 tab PO DAILY nitroglycerin [Nitrostat] 0.4 mg tablet, sublingual 0.4 mg sublingual Q5M PRN (Reason: chest pain) Qty: 25 3RF Rx Instructions: do not exceed 3 doses per episode furosemide 40 mg tablet 60 mg PO QAM Qty: 20 0RF Rx Instructions: Increase Lasix to 60 mg daily for 4 days Discharge Orders: Discharge Order (Routine); Ordered 09/25/23 Ordered By: Nato Almaguer Referrals: Hugh Alvarado MD [Physician] - (We have notified your physician's clinic of the need for a follow-up appointment to be scheduled. If you have not heard from them within the next 2 business days, please call them directly. ) Nato Diggs [Primary Care Provider] - (We have notified your physician's clinic of the need for a follow-up appointment to be scheduled. If you have not heard from them within the next 2 business days, please call them directly. ) Patient Instructions: Heart Failure (DC), Fluid Restriction (GEN), Tricuspid Regurgitation (DC), CHF Stoplight, Opioid Safety Activity Restrictions/Additional Instructions: Keep daily fluid intake to 3410-0008 ml daily. Discharge Attestations Time Spent in Discharge Care*: greater than 30 min Specific Discharge Activities: educating patient, educating and/or supporting family/caregiver, documenting/other paperwork and evaluating patient/reviewing data Quality Metrics Clinical Quality Measures [ No reported AMI, CVA or VTE this stay] Coding Level of Care Code Acute Code for Chg Fwd Diagnoses Generalized weakness R53.1 Congestive heart failure I50.9 Acute kidney injury N17.9 Valvular heart disease I38 Severe tricuspid regurgitation I07.1 Status post coronary artery bypass graft Z95.1 Other persistent atrial fibrillation I48.19 Atrial fibrillation type: other persistent Transaminitis R74.01
[2023-09-25 13:48] VITALS: BP 102/69; PULSE 83; RESP 16; TEMP 36.4; O2SAT 94
== END 2023-09-25 14:59 | disposition home or self-care (01) | DRG 291 ==
LOC: ER 14:17 → CSU 15:00
PROVIDERS: Admitting Provider Student in an Organized Health Care Education/Training Program; Emergency Provider Emergency Medicine; PCP Family Medicine; Visit Provider Family Medicine
DX: I11.0 Hypertensive heart disease with heart failure (principal); I50.33 Acute on chronic diastolic (congestive) heart failure; N17.9 Acute kidney failure, unspecified; I48.19 Other persistent atrial fibrillation; E78.5 Hyperlipidemia, unspecified; N40.1 Benign prostatic hyperplasia with lower urinary tract symptoms; R39.14 Feeling of incomplete bladder emptying; I25.10 Atherosclerotic heart disease of native coronary artery without angina pectoris; I50.810 Right heart failure, unspecified; I07.1 Rheumatic tricuspid insufficiency; Z11.52 Encounter for screening for COVID-19; Z79.01 Long term (current) use of anticoagulants; Z95.1 Presence of aortocoronary bypass graft; Z85.46 Personal history of malignant neoplasm of prostate; Z87.891 Personal history of nicotine dependence
CPT/HCPCS: 36415; 51798; 71045; 71046; 71250; 80053; 80061; 81001; 81015; 82607; 82746; 83036; 83540; 83550; 83735; 83880; 84100; 84145; 84443; 84484; 85007; 85025; 87077; 87086; 87186; 87486; 87581; 87633; 93005; 93306; 94664; 96376; 99285; C9113; J1940

== ENCOUNTER → 2023-10-12 12:58 | Outpatient (BNVA) | payer MEDICARE, SELFPAY | PROVIDERS: PCP Family Medicine; Visit Provider Nurse Practitioner Family | DX: I11.0 Hypertensive heart disease with heart failure (principal); I50.9 Heart failure, unspecified; I48.19 Other persistent atrial fibrillation; Z87.891 Personal history of nicotine dependence | CPT/HCPCS: 36415; 80048; 83880; 99214 ==

== ENCOUNTER 2023-10-30 20:35 | Emergency (ER) | payer MEDICARE, SELFPAY ==
[2023-10-30 20:51] VITALS: BP 120/71; PULSE 78; RESP 22; TEMP 36.6; O2SAT 100; BMI 24.7
--- NOTE | 2023-10-30 20:54 | ECG_ITS ---
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 Measurements Intervals [place] Rate: 80 P: 0 TX: 0 QRS: 97 QRSD: 148 T: -47 QT: 423 QTc: 489 Interpretive Statements ATRIAL FIBRILLATION WITH ABERRANT CONDUCTION OR VENTRICULAR PREMATURE COMPLEXES RIGHT BUNDLE BRANCH BLOCK [120+ ms QRS DURATION, UPRIGHT V1, 40+ ms S IN I/aVL/V4/V5/V6] MODERATE T-WAVE ABNORMALITY, CONSIDER INFERIOR ISCHEMIA [-0.1+ mV T-WAVE IN II/aVF] Compared to ECG 09/22/2023 17:51:45 Right bundle-branch block now present T-wave abnormality now present Possible ischemia now present Intraventricular conduction delay no longer present Electronically Signed On 10-31-2023 15:40:39 CDT by Hugh Alvarado M.D. [email or web address]
[2023-10-30 21:12] VITALS: BP 111/76; PULSE 77; RESP 20; O2SAT 98
--- NOTE | 2023-10-30 21:24 | ED_ITS ---
HPI - SOB/Dyspnea 2 General: Chief Complaint: Shortness of Breath/Dyspnea Stated Complaint: sob pressure just cant breathe Time Seen by Provider: 10/30/23 20:57 History of Present Illness: HPI Narrative: 87-year-old gentleman with a history of heart failure. He presents with 2 to 3 days of increasing shortness of breath. He states that his lungs feel like they did when they had too much fluid on him . He was admitted with similar symptoms in late September and diuresis occurred with an increased dose and Lasix for short period. He notes that he did well with this. Shortness of breath is slowly returned over the past few days. He is not oxygen dependent at home. He denies any chest pain. He denies significant change in leg swelling. Associated symptoms: Deny abdominal pain, chest pain, fever(s) or palpitations Review of Systems 2 Const: Denies: fever(s) ENMT: Denies: throat pain Card: Reports: irregular heart rhythm; Denies: chest pain or palpitations Resp: Reports: dyspnea and non-productive cough (chronic) GI: Denies: abdominal pain or heartburn PFSH ED 2 PFSH: Medical History Shortness of breath Severe tricuspid regurgitation Congestive heart failure Lower urinary tract symptoms (LUTS) Postprocedural membranous urethral stricture Gross hematuria Edema, peripheral ASHD (arteriosclerotic heart disease) Atrial fibrillation Hypertension Hyperlipidemia Valvular heart disease Right inguinal hernia Diverticulosis BPH (benign prostatic hyperplasia) Erectile dysfunction Incomplete bladder emptying Prostate cancer Surgical History Status post cataract extraction Status post appendectomy Status post coronary artery bypass graft Status post bilateral inguinal hernia repair Family History Father , AT AGE 68-[place] No problems noted. Mother , OF STOMACH CANCER AT AGE 75 Diabetes Other CAD (coronary artery disease) Cancer Hypertension Denies family history of Clotting disorder Dementia Chronic kidney disease (CKD) Suicide Anesthesia complication Bleeding disorder Lung disease Stroke Social History Smoking and tobacco/nicotine status: former use of tobacco/nicotine Alcohol intake: never Substance/Drug Use: never Marital status: Current occupational status: retired Physical Exam 2 Const: COMMON NORMALS: no acute distress GENERAL APPEARANCE: cooperative; not ill appearing and not frail appearing HENMT: COMMON NORMALS: normocephalic, atraumatic and Normal external nose present HEAD & SCALP: normocephalic and atraumatic FACE & SINUS: normal facial exam and face symmetric NOSE: Normal external nose present Eye: COMMON NORMALS: Equal, round and reactive pupils present and EOMs intact bilaterally PUPIL: Yes Equal, round and reactive pupils present Neck/C-Spine: GENERAL: Yes trachea midline Chest: CHEST: Yes Symmetrical chest wall rise Resp: COMMON NORMALS: No retractions, No use of accessory muscles and clear to auscultation bilaterally EFFORT & INSPECTION: Yes tachypneic AUSCULTATION: clear to auscultation bilaterally Cardio: COMMON NORMALS: regular rate RATE: regular rate RHYTHM: abnormal rhythm irregularly irregular GI: COMMON NORMALS: Normal to inspection, nondistended, normoactive bowel sounds present Extremity: COMMON NORMALS: no pedal edema Neuro: LAKISHA COMA SCALE: document GCS findings [place] coma scale eye opening: Spontaneous [place] coma scale verbal response: Orientated [place] coma scale motor response: Obey commands Lakisha coma scale total score: 15 S ENSORY EXAM: Yes extremities (intact) Psych: COMMON NORMALS: speech normal SPEECH: Yes normal speech Skin: COMMON NORMALS: no rashes or lesions noted GENERAL SKIN EXAM: no rashes or lesions noted Course 2 Vital Signs: Vital signs: Vital Signs Temperature 98 F 10/30/23 20:51 Pulse Rate 79 10/30/23 23:28 Respiratory Rate 18 10/30/23 23:28 Blood Pressure 101/69 10/30/23 23:28 Pulse Oximetry 97 10/30/23 23:28 Oxygen Delivery Me thod Room Air 10/30/23 23:28 MDM - SOB/Dyspnea Medical Decision Making 87-year-old male with shortness of breath. No chest pain. Hemoglobin is 11. Chest x-ray reveals bibasilar atelectasis and cardiomegaly with a trace right pleural effusion. BNP is 2500. Lactic acid is normal. Creatinine is 1.8 which is near baseline. Clinically this patient does not have pneumonia. He has received 60 mg of IV Lasix here with some diuresis. His Lasix dose will be increased to 80 mg daily from 40 mg daily until he sees his production designer on Tuesday, at which time his BMP should be rechecked for kidney function, etc. He knows to return for any worsening symptoms. He is otherwise stable, not oxygen dependent, and wishes to go home. Lab Data 10/30/23 21:04 10/30/23 21:04 Labs/Radiology: Radiology Impressions Chest X-Ray 10/30/23: IMPRESSION: 1. Cardiomegaly. 2. Trace right pleural effusion. 3. Bibasilar atelectasis versus infiltrate. 4. Sternotomy wires. Laboratory Results WBC 6.18 10^3/uL (3.29-11.43) 10/30/23 21:04 RBC 3.40 10^6/uL (3.85-5.65) L 10/30/23 21:04 Hgb 10.80 g/dL (11.27-16.99) L 10/30/23 21:04 Hct 33.1 % (37-53) L 10/30/23 21:04 MCV 97.4 fl (82-101) 10/30/23 21:04 MCH 31.8 pg (27-33) 10/30/23 21:04 MCHC 32.6 g/dL (30-55) 10/30/23 21:04 RDW 21.0 % (12.1-15.1) H 10/30/23 21:04 Plt Count 141 10^3/cmm (157-399) L 10/30/23 21:04 MPV 12.2 fL (7.4-10.4) H 10/30/23 21:04 Neut % (Auto) 63.1 % 10/30/23 21:04 Lymph % (Auto) 19.3 % 10/30/23 21:04 [place] % (Auto) 13.4 % 10/30/23 21:04 Eos % (Auto) 1.5 % 10/30/23 21:04 Baso % (Auto) 1.1 % 10/30/23 21:04 Neut # (Auto) 3.90 10^3/uL (1.8-7.7) 10/30/23 21:04 Lymph # (Auto) 1.2 10^3/uL (0.8-4.8) 10/30/23 21:04 [place] # (Auto) 0.8 10^3/uL (0.2-0.9) 10/30/23 21:04 Eos # (Auto) 0.1 10^3/uL (0.0-0.8) 10/30/23 21:04 Baso # (Auto) 0.1 10^3/uL (0.0-0.1) 10/30/23 21:04 Nucleated RBC % (auto) 0.3 % 10/30/23 21:04 Nucleated RBCs # 0.0 /100WBC 10/30/23 21:04 Sodium 139 mmol/L (136-145) 10/30/23 21:04 Potassium 4.2 mmol/L (3.5-5.1) 10/30/23 21:04 Chloride 104 mmol/L (98-107) 10/30/23 21:04 Carbon Dioxide 22 mmol/L (22-29) 10/30/23 21:04 Anion Gap 17.2 (5-19) 10/30/23 21:04 BUN 35 mg/dL (8-23) H 10/30/23 21:04 Creatinine 1.8 mg/dL (0.7-1.2) H 10/30/23 21:04 GFR Calculation Not Reportable 10/30/23 21:04 Glucose 109 mg/dL (65-115) 10/30/23 21:04 Calculated Osmolality 297 mOsm/kg (285-295) H 10/30/23 21:04 Lactic Acid 1.4 mmol/L (0.5-2.2) 10/30/23 21:04 Calcium 9.5 mg/dL (8.5-10.5) 10/30/23 21:04 NT-Pro-B Natriuret Pep 2466 pg/mL (0-450) H 10/30/23 21:04 All radiology interpretation(s) finalized by discharge Discharge Plan Discharge Patient Disposition: Home Clinical Impression: Pulmonary edema CHF (congestive heart failure) Qualifiers: Heart failure type: unspecified Heart failure chronicity: acute on chronic Q ualified Code(s): I50.9 - Heart failure, unspecified Condition: Stable Prescriptions: Continued furosemide 40 mg Tablet 40 mg PO DAILY@0800 Qty: 30 0RF No Action potassium chloride [Klor-Con M20] 20 mEq tablet,ER particles/crystals 20 meq PO DAILY fenofibrate 160 mg tablet 160 mg PO DAILY allopurinol 300 mg tablet 300 mg PO BEDTIME tamsulosin 0.4 mg capsule 0.4 mg PO DAILY ezetimibe 10 mg tablet 10 mg PO BEDTIME Pradaxa 75 mg capsule 75 mg PO BID isosorbide mononitrate 30 mg tablet extended release 24 hr 30 mg PO DAILY multivitamin Tablet 1 tab PO DAILY vitamin B complex [B Complex-Vitamin B12] Tablet 1 tab PO DAILY nitroglycerin [Nitrostat] 0.4 mg tablet, sublingual 0.4 mg sublingual Q5M PRN (Reason: chest pain) Qty: 25 3RF Rx Instructions: do not exceed 3 doses per episode gabapentin 100 mg capsule 100 mg PO DAILY lisinopril 5 mg tablet 5 mg PO BEDTIME Qty: 90 3RF trazodone 50 mg Tablet 50 mg PO BEDTIME PRN (Reason: Sleep) Qty: 30 1RF Discharge Orders: Discharge ED (Routine); Ordered 10/30/23 Ordered By: Wilian Hernandez Referrals: Hugh Alvarado MD [Physician] - 1-3 days Nato Diggs [Primary Care Provider] - Patient Instructions: Pulmonary Edema (ED), Opioid Safety, Pain Management Activity Restrictions/Additional Instructions: Increase your Lasix dosage to 40 mg twice daily until seen by your doctor. You should have your kidney function rechecked on Tuesday when you see your doctor. They can direct your dosage from there. Return for fever, worsening shortness of breath despite treatment, any other concerning symptoms. Coding Level of Care Code ED Ground Support Equipment Mechanic for Maggie Mcgrath
--- NOTE | 2023-10-30 21:24 | XRR_ITS ---
PROCEDURE INFORMATION: Exam: XR Chest Exam date and time: 10/30/2023 9:29 PM Age: 87 years old Clinical indication: Shortness of breath; Prior surgery; Surgery date: 6+ months; Surgery type: Cabg; Patient HX: C/O SOB. History of chf and prostate cancer. TECHNIQUE: Imaging protocol: Radiologic exam of the chest. Views: 1 view. COMPARISON: CT chest [facility] [id number] 09/22/2023 5:06 PM FINDINGS: Lungs: Bibasilar atelectasis versus infiltrate. Pleural spaces: Trace right pleural effusion. Heart/Mediastinum: Cardiomegaly. Bones/joints: Sternotomy wires. XR/XR chest 1V portable [id number] IMPRESSION: 1. Cardiomegaly. 2. Trace right pleural effusion. 3. Bibasilar atelectasis versus infiltrate. 4. Sternotomy wires.
[2023-10-30 21:28] LABS: Basophils # 0.1 10^3/uL (0.0-0.1); Basophils % 1.1 %; Eosinophils # 0.1 10^3/uL (0.0-0.8); Eosinophils % 1.5 %; Hematocrit 33.1 % (37-53); Lymphocytes # 1.2 10^3/uL (0.8-4.8); Lymphocytes % 19.3 %; Mean Corpuscular HGB Conc 32.6 g/dL (30-55); Mean Corpuscular Hemoglobin 31.8 pg (27-33); Mean Corpuscular Volume 97.4 fl (82-101); Mean Platelet Volume 12.2 fL (7.4-10.4); Monocytes # 0.8 10^3/uL (0.2-0.9); Monocytes % 13.4 %; Neutrophils % 63.1 %; Nucleated Red Blood Cells % 0.3 %; Platelet Count 141 10^3/cmm (157-399); White Blood Count 6.18 10^3/uL (3.29-11.43)
[2023-10-30 21:39] LABS: Lactic Sepsis W/Reflex 1.4 mmol/L (0.5-2.2)
[2023-10-30 21:50] LABS: Anion Gap 17.2 (5-19); Blood Urea Nitrogen 35 mg/dL (8-23); Calcium 9.5 mg/dL (8.5-10.5); Carbon Dioxide 22 mmol/L (22-29); Chloride 104 mmol/L (98-107); Creatinine Clr Calc Pharmacy 33.7731; Glucose 109 mg/dL (65-115); NT Pro B Type Natriuretic Pept 2466 pg/mL (0-450); Osmolality Calculated 297 mOsm/kg (285-295); Potassium 4.2 mmol/L (3.5-5.1); Sodium 139 mmol/L (136-145)
[2023-10-30 22:17] VITALS: BP 113/79; PULSE 77; O2SAT 95
[2023-10-30 23:28] VITALS: BP 101/69; PULSE 79; RESP 18; O2SAT 97
[2023-10-31 00:23] VITALS: BP 114/80; PULSE 91; RESP 18; O2SAT 99
== END 2023-10-31 00:18 | disposition home or self-care (01) ==
PROVIDERS: Emergency Provider Emergency Medicine; PCP Family Medicine
DX: I11.0 Hypertensive heart disease with heart failure (principal); I50.1 Left ventricular failure, unspecified; Z87.891 Personal history of nicotine dependence; Z95.1 Presence of aortocoronary bypass graft; E78.5 Hyperlipidemia, unspecified; Z85.46 Personal history of malignant neoplasm of prostate
CPT/HCPCS: 51798; 71045; 80048; 83605; 83880; 85025; 93005; 99285

== ENCOUNTER → 2023-11-01 10:50 | Outpatient (BNVA) | payer MEDICARE, SELFPAY | PROVIDERS: PCP Family Medicine; Referring Provider Nurse Practitioner Family; Visit Provider Specialist | DX: G62.9 Polyneuropathy, unspecified (principal); G62.89 Other specified polyneuropathies | CPT/HCPCS: 99204 ==

== ENCOUNTER → 2023-11-02 09:49 | Outpatient (BNVA) | payer MEDICARE, SELFPAY | PROVIDERS: PCP Family Medicine; Visit Provider Internal Medicine Cardiovascular Disease | DX: I11.0 Hypertensive heart disease with heart failure (principal); I50.9 Heart failure, unspecified; E78.2 Mixed hyperlipidemia; I48.19 Other persistent atrial fibrillation; I25.10 Atherosclerotic heart disease of native coronary artery without angina pectoris; I08.1 Rheumatic disorders of both mitral and tricuspid valves; Z87.891 Personal history of nicotine dependence | CPT/HCPCS: 99215 ==

== ENCOUNTER → 2023-11-11 10:55 | Outpatient (BNVA) | payer MEDICARE, SELFPAY | PROVIDERS: PCP Family Medicine; Visit Provider Internal Medicine Cardiovascular Disease | DX: R06.02 Shortness of breath (principal) | CPT/HCPCS: 80048; 83880 ==

== ENCOUNTER 2023-11-18 09:04 | Outpatient (CLI) | payer MEDICARE, SELFPAY ==
--- NOTE | 2023-11-18 09:07 | XR_ITS ---
WS: [email or web address] Exam: XR chest 2V* [id number] Date/Time of Exam: 11/18/2023 9:10 AM Reason For Exam: pleural effusion Comparison 10/30/2023. The lungs are hyperinflated and clear. The heart is enlarged but unchanged in size. There are a bilat eral diaphragmatic calcified plaques and RIGHT basal pleural plaques. No pleural effusion. The medias tinum is normal in contour. Signs of median sternotomy. Small battery pack along the LEFT heart. Bony structures are intact. IMPRESSION: 1. Diaphragmatic and pleural calcified plaque formation. This could be seen with asbestos related nely g disease. 2. Mild cardiac enlargement. No change. 3. Pulmonary hyperinflation. No acute process noted otherwise.
== END 2023-11-18 09:05 | disposition home or self-care (01) ==
LOC: RAD 09:05
PROVIDERS: PCP Family Medicine; Visit Provider Internal Medicine Pulmonary Disease
DX: R06.02 Shortness of breath (principal); I10 Essential (primary) hypertension
CPT/HCPCS: 71046; 99204

== ENCOUNTER 2023-11-23 08:20 | Outpatient (CLI) | payer MEDICARE, SELFPAY ==
--- NOTE | 2023-11-23 | ECG_ITS ---
[facility] Test Date: 2023-11-23 Pat Name: Cain Simpson Department: Room: Gender: Male Entry Level Paralegal: : 1935 Requested By: Hugh Alvarado Order Number: [id number] Marilynn MD: Hugh Alvarado M.D. Interpretive Statements NAME OF STUDY: LEXISCAN SESTAMIBI STRESS TEST INDICATION: CHF; CARDIOMYOPATHY RESULTS TO MICHAEL PACHECO PROCEDURE: At the baseline, the EKG revealed atrial fibrillation with right bundle branch block pattern. 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 The baseline heart was 82 bpm with a blood pressue of 103/83 mm of Hg Lexiscan was infused over a period of 20 seconds. A total of 0.4 milligrams of Lexiscan was infused. The stress phase was continued for a total of 5 minutes. Heart rate at the end of the stress phase was 81 bpm with a blood pressure 111/78 mm of Hg. The EKG at the peak infusion revealed no significant changes. Sestamibi was injected 20 seconds after the Lexiscan infusion. Heart rate at the end of the recovery phase was 77 bpm with a blood pressure of 106/74 mm of Hg. CONCLUSION: 1. No significant EKG changes with the LexiScan infusion 2. No LexiScan induced chest pain or cardiac arrhythmia 3. Normal blood pressure and heart rate response 4. Sestamibi/sestamibi perfusion scan pending; see separate report. Electronically Signed On 11-28-2023 23:45:34 CDT by Hugh Alvarado M.D. [id number]
[2023-11-23 08:37] VITALS: BMI 24.4
--- NOTE | 2023-11-23 08:42 | NMCV_ITS ---
NM sheila perf SPECT r/s* [id number] Cain Simpson Age: 88 Gender: M : 1935 Exam Date: 11/23/2023 09:31 Ordering Phys: Hugh Alvarado MD ([email or web address]) Technologist: LOUISA Rodriguez Exam Location: [facility] Indications: CORONARY ANGIOPLASTY STATUS STRESS TEST Please see separate stress test report in [facility] for full findings IMAGE PROTOCOL Rest/Stress 1 Lexiscan Day Radiopharmaceutical Dose (mCi) Administration Site Administered by Rest: Tc-99m 10.5 IV LOUISA Casiano Sestamibi Stress:Tc-99m 32.6 IV LOUISA Casiano Sestamibi Rest: 23-Nov-2023 60 Discovery 630 Stress: 23-Nov-2023 30 Discovery 630 0.4mg Lexiscan. Images obtained in supine and prone position. SPECT RESULTS Technical Quality: Excellent Raw Data Analysis: Normal Image Corrections: No attenuation or motion correction applied Summed Stress Score: 13 Summed Rest Score: 12 Summed Difference Score: 2 PERFUSION FINDINGS Moderate to large area of moderate to severely decreased tracer uptake was noted involving the basal and mid inferolateral, anterolateral , anterior and apical lateral regions. Subtle area reversibility was noted in the anterior region. This was not relieved with the supine imaging. With the prone imaging, no significant Perfusion normalities are noted FUNCTIONAL RESULTS (calculated via Gated SPECT) Stress Image LV EF (%): 65 Stress EDV (mL):147 TID: 1.09 Stress ESV (mL):52 FUNCTIONAL FINDINGS: Segmental wall motion analysis revealing no gross wall motion abnormalities IMPRESSIONS 1. Myocardial perfusion imaging revealing moderate to large area of moderate to severely decreased persistent tracer uptake involving the inferolateral, anterolateral , anterior and apical lateral regions with a subtle area reversibility suggesting extensive myocardial scarring mostly in the distribution of the left circumflex artery with a subtle area of ischemia in the LAD territory. Because of the inconsistency with the prone imaging. Most likely this could be artifactual 2. Normal LV ejection fraction of 65% 3. LV wall motion analysis revealing no gross wall motion abnormalities. 4. Mildly dilated LV cavity Compared to the study from 02/20/2019 the area of fixed defects appears to be larger but with no significant change in the LV ejection fraction Dr Hugh Alvarado MD FAC (Electronically Signed) Final Date: 23 November 2023 13:40 S
[2023-11-23] MEDS: regadenoson 0.4 Mg/5 ml Syringe 0.400000000000000022 MG IVP (10:15)
[2023-11-23 10:46] VITALS: BP 132/64; PULSE 62
== END 2023-11-23 08:21 | disposition home or self-care (01) ==
LOC: CDL 08:21
PROVIDERS: PCP Family Medicine; Visit Provider Internal Medicine Cardiovascular Disease
DX: I50.9 Heart failure, unspecified (principal); I42.9 Cardiomyopathy, unspecified
CPT/HCPCS: 36415; 78452; 93017; 96374; A9500; J2785

== ENCOUNTER → 2023-12-05 14:58 | Outpatient (BNVA) | payer MEDICARE, SELFPAY | PROVIDERS: PCP Family Medicine; Visit Provider Internal Medicine Cardiovascular Disease | DX: R06.02 Shortness of breath (principal) | CPT/HCPCS: 36415; 80048; 83880; 99214 ==

== ENCOUNTER → 2023-12-16 08:47 | Outpatient (BNVA) | payer MEDICARE, SELFPAY | PROVIDERS: PCP Family Medicine; Visit Provider Internal Medicine Pulmonary Disease | DX: R06.02 Shortness of breath (principal); J90 Pleural effusion, not elsewhere classified; I50.9 Heart failure, unspecified; J92.0 Pleural plaque with presence of asbestos; Z87.891 Personal history of nicotine dependence | CPT/HCPCS: 99214 ==

== ENCOUNTER → 2024-01-13 10:30 | Outpatient (BNVA) | payer MEDICARE, SELFPAY | PROVIDERS: PCP Family Medicine; Visit Provider Specialist | DX: G62.89 Other specified polyneuropathies (principal) | CPT/HCPCS: G0463 ==

== ENCOUNTER → 2024-02-22 09:17 | Outpatient (BNVA) | payer MEDICARE, SELFPAY | PROVIDERS: PCP Family Medicine; Visit Provider Dermatology | DX: C44.612 Basal cell carcinoma of skin of right upper limb, including shoulder (principal); D48.5 Neoplasm of uncertain behavior of skin; L82.1 Other seborrheic keratosis; L81.4 Other melanin hyperpigmentation; L85.3 Xerosis cutis; Z85.828 Personal history of other malignant neoplasm of skin; L57.0 Actinic keratosis | CPT/HCPCS: 11603; 13121; 17000; 69100; 99213 ==

== ENCOUNTER → 2024-03-06 10:58 | Outpatient (BNVA) | payer MEDICARE, SELFPAY | PROVIDERS: PCP Family Medicine; Visit Provider Nurse Practitioner Family | DX: I11.0 Hypertensive heart disease with heart failure (principal); I50.9 Heart failure, unspecified; I48.19 Other persistent atrial fibrillation; I25.10 Atherosclerotic heart disease of native coronary artery without angina pectoris | CPT/HCPCS: 99214 ==

== ENCOUNTER 2024-04-03 04:05 | Inpatient (IN) | payer MEDICARE, SELFPAY ==
[2024-04-03] VITALS (45 sets, daily range): BP systolic 82–111; BP diastolic 51–73; PULSE 76–106; RESP 16–31; TEMP 36.1–36.7; O2SAT 88–100; BMI 22.7
[2024-04-03] MEDS: sodium chloride 0.9% 250 ML 999 ML IV (05:02)
--- NOTE | 2024-04-03 05:09 | PC.NURSE ---
Arrival to ICU Patient arrived to ICU via EMS at 04:11. Arrived on Levophed at 2 mcs, paused at 04:36. Patient placed on continuous monitoring.
--- NOTE | 2024-04-03 05:11 | ECG_ITS ---
[facility] Test Date: 2024-04-03 Pat Name: Cain Simpson Department: Room: 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 Measurements Intervals [place] Rate: 86 P: 0 MN: 0 QRS: 123 QRSD: 174 T: 29 QT: 442 QTc: 531 Interpretive Statements ATRIAL FIBRILLATION RIGHT AXIS DEVIATION [QRS AXIS > 100] RIGHT BUNDLE BRANCH BLOCK [120+ ms QRS DURATION, UPRIGHT V1, 40+ ms S IN I/aVL/V4/V5/V6] Compared to ECG 10/30/2023 20:47:50 Right-axis deviation now present Ventricular premature complex(es) no longer present Aberrant conduction of supraventricular beat(s) no longer present T-wave abnormality no longer present Possible ischemia no longer present Electronically Signed On 04-03-2024 16:41:50 CDT by Logan Haider M.D. [id number]
--- NOTE | 2024-04-03 05:12 | CTR_ITS ---
PROCEDURE INFORMATION: Exam: CT Chest Without Contrast; Diagnostic Exam date and time: 04/03/2024 5:49 AM Age: 88 years old Clinical indication: Vomiting and other: Sepsis; Prior surgery; Surgery date: 6+ months; Surgery type: Cabg; Additional info: Fall, n/v/ sepsis TECHNIQUE: Imaging protocol: Diagnostic computed tomography of the chest without contrast. Radiation optimization: All CT scans at this facility use at least one of these dose optimization techniques: automated exposure control; mA and/or kV adjustment per patient size (includes targeted exams where dose is matched to clinical indication); or iterative reconstruction. COMPARISON: CT chest [facility] [id number] 09/22/2023 5:06 PM RADIATION DOSE METRICS: Total DLP (mGy-cm): 697.57 FINDINGS: Lungs: Scattered pulmonary infiltrates greatest in the right upper and left lower lobes. Diaphragmatic base calcifications suggest asbestos exposure. Pleural spaces: Unremarkable. No pneumothorax. No pleural effusion. Heart: Cardiomegaly. Coronary arteries: Coronary artery calcifications. Lymph nodes: Visible central lymph nodes are not pathologically enlarged. Vasculature: Unremarkable. No aortic aneurysm. Bones/joints: Unremarkable. No acute fracture. Soft tissues: Unremarkable. PROCEDURE INFORMATION: Exam: CT Abdomen And Pelvis Without Contrast Exam date and time: 04/03/2024 5:49 AM Age: 88 years old Clinical indication: Vomiting and other: Sepsis; Prior surgery; Surgery date: 6+ months; Surgery type: Cabg; Additional info: Fall, n/v/ sepsis TECHNIQUE: Imaging protocol: Computed tomography of the abdomen and pelvis without contrast. Radiation optimization: All CT scans at this facility use at least one of these dose optimization techniques: automated exposure control; mA and/or kV adjustment per patient size (includes targeted exams where dose is matched to clinical indication); or iterative reconstruction. COMPARISON: CT chest [facility] [id number] 09/22/2023 5:06 PM RADIATION DOSE METRICS: Total DLP (mGy-cm): 697.57 FINDINGS: Liver: Normal. No mass. Gallbladder and biliary ducts: Cholelithiasis. The gallbladder is contracted, perhaps physiologically. Cholelithiasis. Pancreas: Normal. No ductal dilation. Spleen: Mild 13 cm splenomegaly. Adrenal glands: Normal. No mass. Kidneys and ureters: Bilateral renal cysts. Nonobstructing calculi in each kidney, left greater than right. Stomach and bowel: Unremarkable. No obstruction. No mucosal thickening. Appendix: No evidence of appendicitis. Intraperitoneal space: Minimal ascites within the pelvis. Prior surgery in the lower abdomen. Vasculature: Extensive atherosclerotic calcifications of the abdominal aorta and iliac vessels. Lymph nodes: Unremarkable. No enlarged lymph nodes. Urinary bladder: Unremarkable as visualized. Reproductive: Unremarkable as visualized. Bones/joints: Unremarkable. No acute fracture. Soft tissues: Unremarkable. CT/[place] [id number] IMPRESSION: Multifocal pneumonia. IMPRESSION: No acute subdiaphragmatic pathology. COMMENTS: Consistent with the [employer]'s Incidental Findings Committee white paper (J Am Arsen Radiol 2018): Any incidental renal lesion less than 1 cm or classified as too small to characterize, or any incidental cystic renal lesion characterized as simple-appearing, is likely benign. No follow-up imaging is recommended for these lesions per consensus recommendations based on imaging criteria.
--- NOTE | 2024-04-03 05:12 | US_ITS ---
WS: [id number] ULTRASOUND ABDOMEN LIMITED CLINICAL INFORMATION: ruq liver and gallbladder COMPARISON: CT 04/03/2024 FINDINGS: Liver Size: Enlarged Craniocaudal length: 20.3 cm. Echogenicity: Normal. Surface nodularity: None. Mass (size and location): None. Bile ducts Intrahepatic ducts: Normal. Common bile duct diameter: 0.6 cm. Gallbladder Cholelithiasis. Gallbladder wall thickening. Gallstones: Present Gallbladder sludge: None. Gallbladder wall thickening: Present Pericholecystic fluid: None. Sonographic Aranda sign: Absent. Pancreas Normal as visualized. Right kidney: RIGHT renal cysts. A Few RIGHT renal cysts with internal debris .Hydronephrosis: None. Size: 13.3 cm x 5.8 cm x 6.1 cm. Abdominal aorta and IVC Visualized portions are normal. Ascites: None. US/US abdomen limited [id number] IMPRESSION: 1. Hepatomegaly. 2. Cholelithiasis. Gallbladder wall thickening likely on the basis of hepatic disease or RIGHT heart failure. 3. Normal common bile duct. 4. RIGHT renal cysts largest measuring 1.9 x 1.6 x 1.7 cm. 5. No hydronephrosis in the RIGHT kidney.
--- NOTE | 2024-04-03 05:14 | USCV_ITS ---
Cain Simpson Age: 88 Gender: M : 1935 Exam Date: 04/03/2024 06:25 Ordering Phys: Luis Alberto Barraza MD Technologist: Exam Location: [facility] [place] Indication: nstemi BP: 100 / 58 HR: 108 Rhythm: Sinus Technical Quality: Adequate MEASUREMENTS (Male / Female) Normal Values 2D ECHO LV Diastolic Diameter PLAX 5.1 cm 4.2 - 5.9 / 3.9 - 5.3 cm IVS Diastolic Thickness 1.1 cm 0.6 - 1.0 / 0.6 - 0.9 cm IVS Systolic Thickness 1.5 cm LVPW Diastolic Thickness 1.3 cm 0.6 - 1.0 / 0.6 - 0.9 cm LVPW Systolic Thickness 2.0 cm LVOT Diameter 2.7 cm LV Ejection Fraction 2D Teich 74.7 % LV Ejection Fraction MOD 4C 61.0 % LV Ejection Fraction MOD 2C 51.0 % LV Ejection Fraction 2C AL 50.4 % LA Diameter 4.3 cm RA Systolic Volume 4C AL 302.6 ml RA Systolic Volume 4C MOD 299.0 ml Aorta at Sinotubular Diameter 3.6 cm IVC Diameter 4.8 cm M-MODE LA Ao Ratio MM 1.5 AV Cusp Separation MM 1.8 cm DOPPLER AV Peak Velocity 140.7 cm/s LVOT Peak Velocity 67.0 cm/s AV Area Cont Eq vti 2.9 cm squared AV Area Cont Eq pk 2.7 cm squared TV Peak Velocity 299.3 cm/s TR Peak Velocity 427.0 cm/s TR Peak Gradient 72.9 mmHg TV Peak E Velocity 104.0 cm/s Right Atrial Pressure 3.0 mmHg Pulmonary Artery Systolic Pressu 75.9 mmHg PV Peak Velocity 72.0 cm/s FINDINGS Left Ventricle Normal LV size with an ejection fraction of 50 to 55%.abnormal septal motion consistent with conduction abnormality. Right Ventricle Possibly normal RV size and ejection fraction. Right Atrium Markedly dilated right atrium Left Atrium Mildly increased left atrial size. Mitral Valve Moderate-severe eccentric mitral valve regurgitation. Moderate prolapse of the anterior mitral leaflet Aortic Valve Thickened aortic valve. Tricuspid Valve Possibly severe tricuspid valve regurgitation. Estimated pulmonary artery peak systolic pressure 28 mmHg. Severe prolapse of the anterior mitral tricuspid leaflet Pulmonic Valve No gross abnormalities noted Pericardium Normal pericardium without effusion. Aorta Normal aortic annulus size. IVC Normal inferior vena cava. CONCLUSIONS Normal LV size with an ejection fraction of 50 to 55%.abnormal septal motion consistent with conduction abnormality. Possibly severe tricuspid valve regurgitation. Estimated pulmonary artery peak systolic pressure 28 mmHg. Severe prolapse of the anterior mitral tricuspid leaflet. Markedly dilated right atrium Thickened aortic valve. Moderate-severe eccentric mitral valve regurgitation. Moderate prolapse of the anterior mitral leaflet. Mildly increased left atrial size. There is no pericardial effusion. TherThere is no pericardial effusion. There are no intracardiac masses. Compared to the study from 09/20/2023, there is some worsening of the tricuspid regurgitation Dr Hugh Alvarado MD [facility] (Electronically Signed) Final Date: 03 April 2024 23:50 S
--- NOTE | 2024-04-03 05:15 | P.HP_ITS ---
Providers/Chief Complaint Admitting Physician: Luis Alberto Barraza MD Primary Care Provider: Nato Diggs Chief Complaint: Pneumonia History of Present Illness Cain Simpson is a 88 year old male with a past medical history of atrial fibrillation, hypertension, valvular heart disease, chronic anticoagulation with dabigatran, history of pleural effusions, former history of smoking, who presents [facility] as a transfer from [facility] for concerns for weakness, nausea, vomiting, fall, concerns for pneumonia, sepsis. Patient was on Levophed at [facility], required Levophed during transfer, here at [facility] he is in the ICU, he is off Levophed, maps greater than 65 he is on 2 L, alert oriented x 3, following all commands, he is having no significant complaints. Patient tells me that yesterday he had intermittent fatigue, malaise, feeling unwell. He tells me in the evening time he felt nauseous, but no abdominal pain, he did not have an episode of vomiting. In the evening time, he was in the bathroom, when he felt dizzy, felt both knees giving out on him, and he fell to the ground, he tells me that he hit his head, denies losing consciousness, no headache, blurry vision, no nausea, no vomiting. At [facility] he was diagnosed with pneumonia, was given Levaquin, was given 1 L of fluid, due to persistently low blood pressures, was given Levophed, lactic acid was 1.6, creatinine was 1.9, WBC 14.3, 2-hour troponin 88, with a delta of 12, chest x-ray showing diffuse consolidation is seen in the lungs bilaterally, centered around the hilar regions consistent with pulm edema no pneumothorax, findings are present consistent with congestive heart failure with pulmonary edema, was febrile at [facility], temperature 101.4, heart rate 104, requiring 2 L, hypotensive, blood pressures 84/54, reports a history of COVID-19 about 2 weeks ago Review of Systems Const: Denies: fever(s) Eyes: Denies: change in vision Card: Denies: chest pain Resp: Denies: dyspnea GI: Reports: nausea and vomiting; Denies: abdominal pain : Denies: flank pain or difficulty urinating Musc: Denies: back pain Skin/Breast: Denies: rash Medications/Allergies Home Medications Medication Instructions Recorded Confirmed Last Taken Type allopurinol 300 mg tablet 300 mg PO BEDTIME 08/08/19 04/03/24 04/01/24 History dabigatran etexilate 75 mg capsule 75 mg PO BID 08/08/19 03/06/24 09/22/23 History (Pradaxa) ezetimibe 10 mg tablet 10 mg PO BEDTIME 08/08/19 04/03/24 04/01/24 History fenofibrate 160 mg tablet 160 mg PO DAILY 08/08/19 04/03/24 04/01/24 History potassium chloride 20 mEq 20 meq PO DAILY 08/08/19 04/03/24 04/01/24 History tablet,extended release(part/cryst) (Klor-Con M) tamsulosin 0.4 mg capsule 0.4 mg PO DAILY 08/08/19 04/03/24 04/01/24 History multivitamin 1 tab PO DAILY 10/09/20 03/06/24 09/18/23 History vitamin B complex (B 1 tab PO DAILY 10/09/20 03/06/24 09/22/23 History Complex-Vitamin B12 tablet) isosorbide mononitrate 30 mg 15 mg PO DAILY 04/16/21 04/03/24 04/01/24 History tablet,extended release 24 hr nitroglycerin 0.4 mg sublingual 0.4 mg sublingual Q5M PRN chest 04/15/22 03/06/24 Unknown Rx tablet (Nitrostat) pain #25 tabs trazodone 50 mg tablet 50 mg PO BEDTIME PRN Sleep #30 tabs 09/25/23 03/06/24 Unknown Rx furosemide 40 mg tablet 40 mg PO DAILY@0800 #30 tabs 10/30/23 04/03/24 04/01/24 Rx pregabalin 50 mg capsule (Lyrica) 50 mg PO DAILY #60 caps 11/01/23 04/03/24 04/01/24 Rx metolazone 2.5 mg tablet 2.5 mg PO DAILY #30 tabs 12/05/23 04/03/24 04/01/24 Rx Allergies Allergy/AdvReac Type Severity Reaction Status Date / Time adhesive tape Allergy unknown Verified 03/06/24 11:11 PFSH Acute PFSH: Medical History Shortness of breath Severe tricuspid regurgitation Congestive heart failure Lower urinary tract symptoms (LUTS) Postprocedural membranous urethral stricture Gross hematuria Edema, peripheral ASHD (arteriosclerotic heart disease) Atrial fibrillation Hypertension Hyperlipidemia Valvular heart disease Right inguinal hernia Diverticulosis BPH (benign prostatic hyperplasia) Erectile dysfunction Incomplete bladder emptying Prostate cancer Surgical History Status post cataract extraction Status post appendectomy Status post coronary artery bypass graft Status post bilateral inguinal hernia repair Family History Father , AT AGE 68-[place] No problems noted. Mother , OF STOMACH CANCER AT AGE 75 Diabetes Other CAD (coronary artery disease) Cancer Hypertension Denies family history of Clotting disorder Dementia Chronic kidney disease (CKD) Suicide Anesthesia complication Bleeding disorder Lung disease Stroke Social History Smoking and tobacco/nicotine status: never used tobacco/nicotine Quit status (tobacco/nicotine): has quit using Year quit tobacco: 1969 Former quit date comment: 1ppd X 30 years Alcohol intake: never Substance/Drug Use: never Marital status: Current occupational status: retired Vitals/I&O/Wt Last Vital Signs O2 Del Method Nasal Cannula 04/03/24 04:22 Weight last 48 hrs Weight 76 kg Physical Exam Const: COMMON NORMALS: no acute distress and patient oriented x3 HENMT: COMMON NORMALS: normocephalic HEAD & SCALP: normocephalic Eye: COMMON NORMALS: Equal, round and reactive pupils present and EOMs intact bilaterally Neck/C-Spine: COMMON NORMALS: no JVD Lymph: LYMPHATIC: no lymphadenopathy noted Resp: COMMON NORMALS: normal respiratory effort, No retractions, No use of accessory muscles and clear to auscultation bilaterally AUSCULTATION: clear to auscultation bilaterally Cardio: COMMON NORMALS: no JVD, regular rate, regular rhythm, S1 normal heart sound present and S2 normal heart sound present RATE: regular rate RHYTHM: regular rhythm HEART SOUNDS: S1 normal heart sound present and S2 normal heart sound present GI: COMMON NORMALS: Normal to inspection, nondistended, normoactive bowel sounds present and Soft to palpation OTHER: Right upper quadrant tenderness, jaundice appearing Extremity: COMMON NORMALS: no calf tenderness and no pedal edema Neuro: COMMON NORMALS: patient oriented x3, CN's II-XII intact bilaterally and moves all extremities Psych: COMMON NORMALS: mental status grossly normal Sepsis: Is patient septic: Yes Focused sepsis exam performed: Yes Focused sepsis exam: DP PT pulses palpable no mottling bilateral lower extremity, cap refill greater than 2 seconds Date exam was performed: 04/03/24 Time exam was performed: 05:22 A&P Assessment and plan (1) Pneumonia: (2) Sepsis: (3) Septic shock: (4) NSTEMI (non-ST elevated myocardial infarction): (5) Acute kidney injury: (6) Fall: (7) Hyperbilirubinemia: Plan Pneumonia ? Currently on 2 L ? Plan ? Respiratory viral panel ? Blood cultures ? Pro-Paras ? CRP ? Repeat CBC - repeat lactic acid ? Start broad-spectrum antibiotic therapy ? Vancomycin ? Zosyn ? CT of the chest ? Monitor respiratory status closely Septic shock, sepsis ? Requiring Levophed at outside hospital and transferred to [facility] currently off Levophed ? Maintain MAP greater 65 -Monitor closely ? Fluid boluses as needed, BNP was over 3800, history of CHF ? If patient not fluid responsive, continue Levophed Fall -with reported head trauma, on Pradaxa ? Will order head CT Acute kidney injury on chronic kidney disease ? IV fluids NSTEMI ? No chest pain complaints ? Serial EKGs, serial troponins, telemetry monitoring ? Cardiac echo Complaints of vomiting, has right upper quadrant pain to palpation, jaundice, hyperbilirubinemia A CT scan abdomen pelvis Full code Lovenox for DVT prophylaxis Attestations Medical Necessity Statement*: Patient requires hospitalization, inpatient, greater than 2 midnights for pneumonia, sepsis, septic shock, fall, ANYI, NSTEMI, hyperbilirubinemia Diagnoses Pneumonia J18.9 Sepsis A41.9 Septic shock A41.9; R65.21 NSTEMI (non-ST elevated myocardial infarction) I21.4 Acute kidney injury N17.9 Fall W19.XXXA Hyperbilirubinemia E80.6
--- NOTE | 2024-04-03 05:17 | CTR_ITS ---
PROCEDURE INFORMATION: Exam: CT Head Without Contrast Exam date and time: 04/03/2024 5:44 AM Age: 88 years old Clinical indication: Injury or trauma; Fall; Concussion/head injury; Consciousness not specified; Additional info: Fall on dabigatran TECHNIQUE: Imaging protocol: Computed tomography of the head without contrast. Radiation optimization: All CT scans at this facility use at least one of these dose optimization techniques: automated exposure control; mA and/or kV adjustment per patient size (includes targeted exams where dose is matched to clinical indication); or iterative reconstruction. COMPARISON: No relevant prior studies available. RADIATION DOSE METRICS: Total DLP (mGy-cm): 1147.08 FINDINGS: Brain: No acute intracranial hemorrhage or mass effect. There is decreased attenuation in the periventricular white matter, likely from microvascular disease. No definite acute infarct by CT. Cerebral ventricles: Ventricle size is normal for age. Paranasal sinuses: Mild mucosal thickening/fluid in the maxillary sinuses. Included paranasal sinuses otherwise appear essentially clear. Mastoid air cells: No significant acute finding. Bones: No definite acute skull fracture. Soft tissues: No significant acute finding. Vasculature: Fairly prominent vascular calcifications in the internal carotid arteries. CT/CT head wo con* [id number] IMPRESSION: 1. No acute intracranial hemorrhage or mass effect. 2. Changes of microvascular disease. 3. Other findings discussed above.
[2024-04-03] MEDS: sodium chloride 0.9% 1,000 ML 125 ML IV (05:27)
[2024-04-03 05:30] LABS: Charge for UA Resulting for Rev
[2024-04-03 05:32] LABS: ABG PH Result 7.47 (7.35-7.45); Arterial Blood Gas Hematocrit 27.3 % (42-52); Base Excess ABG 0.7 mmol/L (-2.0-2.0); Blood Gas Allen Test Pos; Blood Gas Sample Site Radial, right; Blood Gas Sample Type Arterial; HCO3 ABG 24.1 mmol/L (22-26); Oxygen Device NC; PO2 ABG 70.8 mmHg (80.0-100.0); PO2 FiO2 Ratio Arterial Blood 221
[2024-04-03 05:33] LABS: Bilirubin Urine Negative (Negative); Blood Urine Negative (Negative); Glucose Urine UA Negative (Normal); Ketones Urine Negative (Negative); Leukocyte Esterase Urine 2+ (Negative); Nitrate Urine Negative (Negative); Protein Urine Trace (Negative); Specific Gravity, Urine 1.013 (1.005-1.030); Urine Appearance Clear (CLEAR); Urine Color Yellow (Yellow); pH Urine 5.5 (5-7)
[2024-04-03 05:33] LABS: Basophils # 0.1 10^3/uL (0.0-0.1); Basophils % 0.2 %; Hematocrit 26.4 % (37-53); Lymphocytes # 0.8 10^3/uL (0.8-4.8); Lymphocytes % 3.9 %; Mean Corpuscular HGB Conc 32.6 g/dL (30-55); Mean Corpuscular Hemoglobin 31.2 pg (27-33); Mean Corpuscular Volume 95.7 fl (82-101); Monocytes # 1.2 10^3/uL (0.2-0.9); Monocytes % 5.9 %; Neutrophils # 18.54 10^3/uL (1.8-7.7); Neutrophils % 89.1 %; Nucleated Red Blood Cells % 0.1 %; Platelet Count 92 10^3/cmm (157-399); Red Blood Count 2.76 10^6/uL (3.85-5.65); Red Cell Distribution Width 21.9 % (12.1-15.1); White Blood Count 20.82 10^3/uL (3.29-11.43)
[2024-04-03 05:42] LABS: Squamous Epithelial Cell Urine 0-4 /hpf (0-5); UA Manual Slide Review YES; WBC Urine 21-50 /hpf (0-5)
[2024-04-03 05:43] LABS: Add Urine Culture? Yes; Bacteria Urine TRACE /hpf; Mucus Urine 2+ /hpf
[2024-04-03 05:49] LABS: Lactic Sepsis W/Reflex 1.8 mmol/L (0.5-2.2)
[2024-04-03 05:51] LABS: Troponin(5th) Baseline 85 ng/L (0-15)
[2024-04-03 05:58] LABS: INR 2.11 (0.8-1.2)
[2024-04-03 06:01] LABS: D Dimer <= 0.27 ug/mLFEU (0-0.59); NT Pro B Type Natriuretic Pept 6583 pg/mL (0-450); Thyroid Stimulating Hormone 2.45 uIU/mL (0.27-4.20)
[2024-04-03 06:12] LABS: Alanine Aminotransferase 7 U/L (0-41); Albumin Level 3.5 g/dL (3.5-5.2); Alkaline Phosphatase 24 U/L (40-130); Anion Gap 21.1 (5-19); Aspartate Amino Transferase 24 U/L (0-40); Blood Urea Nitrogen 35 mg/dL (8-23); C Reactive Protein 35.7 mg/L (0.0-4.9); Calcium 8.8 mg/dL (8.5-10.5); Carbon Dioxide 22 mmol/L (22-29); Chloride 95 mmol/L (98-107); Globulin 2.1 g/dL (1.3-4.6); Glucose 104 mg/dL (65-115); Lipase 18 U/L (13-60); Magnesium 1.7 mg/dL (1.7-2.3); Osmolality Calculated 288 mOsm/kg (285-295); Phosphorus 3.4 mg/dL (2.5-4.5); Potassium 3.1 mmol/L (3.5-5.1); Slide Review Slide Review Perform; Sodium 135 mmol/L (136-145); Total Bilirubin 2.6 mg/dL (0.15-1.2); Total Protein 5.6 g/dL (6.6-8.7)
[2024-04-03] MEDS: pantoprazole 40 mg SDV IVP (06:35)
[2024-04-03] MEDS: vancomycin 1,250 MG/250 ML PIGGYBACK 166.67 MG IV (06:36)
[2024-04-03] MEDS: piperacillin-tazobactam 3.375 GM in sodium chloride 0.9% (plus) 50 ML IV ×3 (06:36→21:20)
[2024-04-03 07:27] LABS: Adenovirus Not Detected (NOT DETECT); Chlamydia Pneumoniae Not Detected (NOT DETECT); Coronavirus 229E,HKU1,NL63,OC4 Not Detected (NOT DETECT); Human Metapneumovirus Not Detected (NOT DETECT); Human Rhinovirus/Enterovirus Not Detected (NOT DETECT); Influenza A Not Detected (NOT DETECT); Influenza A H1 Not Detected (NOT DETECT); Influenza A H1-2009 Not Detected (NOT DETECT); Influenza A H3 Not Detected (NOT DETECT); Influenza B Not Detected (NOT DETECT); Mycoplasma Pneumoniae Not Detected (NOT DETECT); Parainfluenza Virus Type 1 Not Detected (NOT DETECT); Parainfluenza Virus Type 2 Not Detected (NOT DETECT); Parainfluenza Virus Type 3 Not Detected (NOT DETECT); Parainfluenza Virus Type 4 Not Detected (NOT DETECT); Respiratory Syncytial Virus A Not Detected (NOT DETECT); Respiratory Syncytial Virus B Not Detected (NOT DETECT)
[2024-04-03 07:31] LABS: Troponin 5 2HR 82.63 ng/L (0-15); Troponin 5 2HR Delta -2.37 ABS# (0-10)
[2024-04-03 07:34] LABS: SARS-COV-2 Detected (NOT DETECT)
--- NOTE | 2024-04-03 07:47 | ECG_ITS ---
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 Measurements Intervals [place] Rate: 82 P: 0 OK: 0 QRS: 118 QRSD: 173 T: 20 QT: 463 QTc: 544 Interpretive Statements ATRIAL FIBRILLATION RIGHT AXIS DEVIATION [QRS AXIS > 100] RIGHT BUNDLE BRANCH BLOCK [120+ ms QRS DURATION, UPRIGHT V1, 40+ ms S IN I/aVL/V4/V5/V6] Compared to ECG 04/03/2024 05:25:29 No significant changes Electronically Signed On 04-03-2024 16:45:29 CDT by Logan Haider M.D. [id number]
[2024-04-03] MEDS: tamsulosin 0.4 mg Capsule PO (08:17)
[2024-04-03] MEDS: fenofibrate 145 mg Tablet PO (08:17)
[2024-04-03] MEDS: pregabalin 50 mg Capsule PO (08:17)
--- NOTE | 2024-04-03 09:35 | P.MISC_ITS ---
Miscellaneous Note Purpose of Documentation: Overnight labs and H&P reviewed. CT of the chest abdomen and pelvis showing multifocal pneumonia. CT of the abdomen and pelvis without any signs of cholelithiasis. Ultrasound of the gallbladder showing gallbladder wall thickening likely related to hepatic congestion. Kassy bilurmila and reviewed at 2.6. Past numbers also high between 1.9- 2.3 , ?? Gilbert's syndrome. Liver enzymes and alkaline phosphatase within range. WBC count up to 20.82. Respiratory viral panel positive for COVID. Remdisivir 200mg iv x 1 followed by 100mg iv daily dexamethasone 6mg IVP daily duoneb q6h, budesonide q12h empiric Zosyn and vancomycin to continue for possibility of superadded bacterial infection given multifocal pneumonia. Check MRSA PCR Low probability PE given patient is on chronic anticoagulation with Pradaxa Discontinue IV fluids to minimize risk for fluid overload.
[2024-04-03] MEDS: dexamethasone 4 mg/mL INJ 6 MG IVP (10:20)
--- NOTE | 2024-04-03 11:27 | ECG_ITS ---
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 Measurements Intervals [place] Rate: 85 P: 0 CT: 0 QRS: 114 QRSD: 171 T: 30 QT: 407 QTc: 484 Interpretive Statements ATRIAL FIBRILLATION WITH ABERRANT CONDUCTION OR VENTRICULAR PREMATURE COMPLEXES RIGHT AXIS DEVIATION [QRS AXIS > 100] RIGHT BUNDLE BRANCH BLOCK [120+ ms QRS DURATION, UPRIGHT V1, 40+ ms S IN I/aVL/V4/V5/V6] Compared to ECG 04/03/2024 07:47:08 Ventricular premature complex(es) now present Aberrant conduction of supraventricular beat(s) now present Electronically Signed On 04-03-2024 16:45:12 CDT by Logan Haider M.D. [id number]
[2024-04-03 11:50] LABS: Troponin 5 6HR 75.05 ng/L (0-15)
[2024-04-03 11:51] LABS: Troponin 5 6HR Delta -9.95 ng/L (0-12)
[2024-04-03] MEDS: ezetimibe 10 mg Tablet PO (21:20)
[2024-04-03] MEDS: trazodone 50 mg Tablet PO (21:20)
[2024-04-03] MEDS: allopurinol 300 mg Tablet PO (21:20)
[2024-04-04] VITALS (55 sets, daily range): BP systolic 91–116; BP diastolic 58–79; PULSE 79–98; RESP 15–31; TEMP 36.4–36.6; O2SAT 77–100
[2024-04-04 05:20] LABS: Basophils % 0.1 %; Lymphocytes # 0.6 10^3/uL (0.8-4.8); Lymphocytes % 5.8 %; Mean Corpuscular HGB Conc 31.9 g/dL (30-55); Mean Corpuscular Hemoglobin 30.6 pg (27-33); Mean Corpuscular Volume 96.1 fl (82-101); Mean Platelet Volume 11.8 fL (7.4-10.4); Monocytes # 0.8 10^3/uL (0.2-0.9); Monocytes % 7.7 %; Neutrophils # 9.16 10^3/uL (1.8-7.7); Neutrophils % 85.1 %; Nucleated Red Blood Cells # 0.1 /100WBC; Platelet Count 96 10^3/cmm (157-399); Red Blood Count 2.81 10^6/uL (3.85-5.65); White Blood Count 10.76 10^3/uL (3.29-11.43)
[2024-04-04] MEDS: pantoprazole 40 mg SDV IVP (05:29)
[2024-04-04] MEDS: piperacillin-tazobactam 3.375 GM in sodium chloride 0.9% (plus) 50 ML IV ×3 (05:29→20:49)
[2024-04-04 05:37] LABS: Alanine Aminotransferase 6 U/L (0-41); Albumin Level 3.5 g/dL (3.5-5.2); Alkaline Phosphatase 26 U/L (40-130); Anion Gap 19.4 (5-19); Aspartate Amino Transferase 25 U/L (0-40); Blood Urea Nitrogen 41 mg/dL (8-23); Calcium 8.7 mg/dL (8.5-10.5); Carbon Dioxide 22 mmol/L (22-29); Chloride 98 mmol/L (98-107); Globulin 2.2 g/dL (1.3-4.6); Glucose 159 mg/dL (65-115); Osmolality Calculated 295 mOsm/kg (285-295); Potassium 3.4 mmol/L (3.5-5.1); Sodium 136 mmol/L (136-145); Total Bilirubin 2.1 mg/dL (0.15-1.2); Total Protein 5.7 g/dL (6.6-8.7)
[2024-04-04] MEDS: azithromycin 250 mg Tablet 500 MG PO (08:13)
[2024-04-04] MEDS: tamsulosin 0.4 mg Capsule PO (08:13)
[2024-04-04] MEDS: pregabalin 50 mg Capsule PO (08:13)
[2024-04-04] MEDS: fenofibrate 145 mg Tablet PO (08:13)
[2024-04-04] MEDS: dexamethasone 4 mg/mL INJ 6 MG IVP (08:14)
[2024-04-04 09:47] LABS: Procalcitonin 9.04 ng/mL (0-0.5)
[2024-04-04] MEDS: sodium chloride 0.9% 1,000 ML 50 ML IV (10:00)
[2024-04-04] MEDS: remdesivir 200 MG in sodium chloride 0.9% (100 ml) 60 ML 100 MG IV (12:57)
[2024-04-04] MEDS: ipratropium-albuterol 3 mL Neb INHALATION ×2 (13:47→19:55)
--- NOTE | 2024-04-04 14:49 | P.PN_ITS ---
Subjective 2 Subjective: Hospital course, labs appreciated. Seen with at bedside. Patient lying comfortably in bed. Looks chronically sick. On 3 L of oxygen supplementation. Blood pressure soft but Menadol pressure being maintained over 65. Vitals/I&O/Wt Last Vital Signs Temp 97.5 F L 04/04/24 07:42 Pulse 79 04/04/24 14:00 Resp 27 H 04/04/24 14:00 BP 91/60 04/04/24 14:00 Pulse Ox 91 04/04/24 14:00 O2 Del Method Nasal Cannula 04/04/24 13:49 O2 Flow Rate 3 04/04/24 13:49 04/03/24 04/04/24 04/04/24 22:59 06:59 14:59 Intake Total 290 / 2070 50 / 2120 630 / 630 Output Total 350 / 650 400 / 1050 200 / 200 Balance -60 / 1420 -350 / 1070 430 / 430 Weight last 48 hrs Weight 77.337 kg Weight 76.5 kg Weight 76 kg Physical Exam 2 Narrative: Weak appearing, chronically sick appearing Const: COMMON NORMALS: no acute distress and patient oriented x3 HENMT: COMMON NORMALS: normocephalic HEAD & SCALP: normocephalic Eye: COMMON NORMALS: Equal, round and reactive pupils present and EOMs intact bilaterally PUPIL: Yes Equal, round and reactive pupils present Neck/C-Spine: COMMON NORMALS: no JVD Lymph: LYMPHATIC: no lymphadenopathy noted Resp: COMMON NORMALS: normal respiratory effort, No retractions, No use of accessory muscles and clear to auscultation bilaterally AUSCULTATION: clear to auscultation bilaterally Cardio: COMMON NORMALS: no JVD, regular rate, regular rhythm, S1 normal heart sound present and S2 normal heart sound present RATE: regular rate RHYTHM: regular rhythm HEART SOUNDS: S1 normal heart sound present and S2 normal heart sound present GI: COMMON NORMALS: Normal to inspection, nondistended, normoactive bowel sounds present and Soft to palpation PALPATION: Yes Soft to palpation O THER: Right upper quadrant tenderness, icterus present Extremity: COMMON NORMALS: no calf tenderness and no pedal edema Neuro: COMMON NORMALS: patient oriented x3, CN's II-XII intact bilaterally and moves all extremities Psych: COMMON NORMALS: mental status grossly normal Data 04/04/24 04:57 04/04/24 04:57 Micro: Microbiology 04/03/24 05:18 Legionella Urinary Antigen - Final Unknown Source 04/03/24 05:18 Bacterial Antigens - Final Urine Kidney 04/03/24 05:18 Urine Culture - Preliminary Urine,Clean Catch 04/03/24 05:22 Blood Culture - Preliminary Blood NEGATIVE TO DATE 04/03/24 05:19 Blood Culture - Preliminary Blood NEGATIVE TO DATE A&P Assessment and plan (1) Sepsis: (2) Pneumonia: (3) COVID-19: (4) CKD (chronic kidney disease): (5) Septic shock: (6) Hyperbilirubinemia: (7) Atrial fibrillation: Qualifiers: Atrial fibrillation type: other persistent Qualified Code(s): I48.19 - Other persistent atrial fibrillation (8) CHF (congestive heart failure): Qualifiers: Heart failure chronicity: acute on chronic Heart failure type: u nspecified Qualified Code(s): I50.9 - Heart failure, unspecified (9) Mitral valve prolapse: (10) Fall: Plan Severe sepsis: Currently not on Levophed. Mineral pressure being maintained over 65. SIRS: Tachycardic, Febrile, Leukocytosis on presentation to outside hospital. Source: Pneumonia End organ damage: Hypoxia Lactic acid within normal limits Patient did not receive full 30 mL/kg BW due to concern for congestive heart failure. Monitor blood pressures. Keep mean artery pressure 65 mmHg. Follow-up blood culture, MRSA swab, urine Legionella, bacterial antigen. Trend procalcitonin. Pneumonia: Respiratory viral panel positive for COVID-19. Does give COVID-19 infection with the last [address] chest. Oxygen supplementation keeping saturation over 90%. Check sputum culture. Follow-up blood culture. For now continue with IV vancomycin and Zosyn. If MRSA swab negative will discontinue vancomycin. Dose as per renal functions. Hypoxia secondary to COVID-19 pneumonia: Moderate disease. Oxygen supplementation keeping saturation over 88%. Dexamethasone 6 mg daily. Discussed in detail with patient regarding need for remdesivir given persistent symptoms with hypoxia and weakness. Both patient and patient's is agreeable today. For now start on remdesivir 20 mg one-time followed by 100 mg IV daily to finish a 3 to 5-day course. DuoNeb every 6 hour, budesonide twice daily Pulmonary toilet with incentive spirometry flutter valve. We will monitor inflammatory markers including CRP every 48 hours. Continue with home dose of dabigatran 75 mg twice daily. Elevated troponin: Most likely in setting of demand ischemia. Trending down. Aspirin 81 mg daily. Appreciate A1c, lipid panel over the last 6 months. CKD: Baseline creatinine 1.6-2. Creatinine 1.8 today. Monitor renal functions daily. Medical reconciliation done for nephrotoxic drugs. Hyperbilirubinemia: Bilirubin so far stable. CT abdomen pelvis negative for gallbladder pathology. No transaminitis. Congestive heart failure: History of diastolic heart failure. Echocardiogram done shows normal EF with severe TR, PASP of 28 mmHg, severe prolapse of anterior mitral leaflet with dilated RA with moderate to severe eccentric MR. Currently patient dehydrated. Hold off on diuretics. Gentle IV hydration with normal saline 50 cc/h. Monitor for fluid overload. CODE STATUS: Disoriented with patient and at bedside. Patient will want to remain full code for now. will be the DPOA. Cardiac diet with protein shakes. Protonix OPD prophylaxis Dabigatran will be sufficient for DVT prophylaxis. Attestations 2 Medical Necessity Statement*: Requires further hospitalization for management of hypoxic respiratory failure, severe sepsis in setting of bilateral pneumonia, COVID-19 no patient with baseline CKD, congestive heart failure with severe MR and TR in setting of mitral valve prolapse Diagnoses Sepsis A41.9 Pneumonia J18.9 COVID-19 U07.1 CKD (chronic kidney disease) N18.9 Septic shock A41.9; R65.21 Hyperbilirubinemia E80.6 Other persistent atrial fibrillation I48.19 Atrial fibrillation type: other persistent CHF (congestive heart failure) I50.9 Heart failure chronicity: acute on chronic Heart failure type: unspecified Mitral valve prolapse I34.1 Fall W19.XXXA
[2024-04-04 15:00] LABS: Methicillin-Resist S.aureu PCR NOT DETECTED (NOT DETECTED)
--- NOTE | 2024-04-04 15:02 | PC.SOCIAL ---
IMM updated IMM dated and initialed, copy given to patient and copy placed in chart
[2024-04-04] MEDS: budesonide 0.5 mg/2 mL Neb INHALATION (19:55)
[2024-04-04] MEDS: ezetimibe 10 mg Tablet PO (20:49)
[2024-04-04] MEDS: allopurinol 300 mg Tablet PO (20:49)
[2024-04-05] VITALS (48 sets, daily range): BP systolic 88–131; BP diastolic 57–86; PULSE 85–105; RESP 17–31; TEMP 36.1–36.3; O2SAT 89–99
--- NOTE | 2024-04-05 02:58 | ECG_ITS ---
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 Measurements Intervals [place] Rate: 91 P: 0 IN: 0 QRS: 120 QRSD: 167 T: -13 QT: 405 QTc: 498 Interpretive Statements ATRIAL FIBRILLATION WITH ABERRANT CONDUCTION OR VENTRICULAR PREMATURE COMPLEXES RIGHT AXIS DEVIATION [QRS AXIS > 100] RIGHT BUNDLE BRANCH BLOCK [120+ ms QRS DURATION, UPRIGHT V1, 40+ ms S IN I/aVL/V4/V5/V6] Compared to ECG 04/03/2024 11:27:21 No significant changes Electronically Signed On 04-05-2024 14:44:59 CDT by Logan Haider M.D. [id number]
[2024-04-05] MEDS: ipratropium-albuterol 3 mL Neb INHALATION ×4 (03:13→20:59)
[2024-04-05 04:42] LABS: Basophils % 0.2 %; Hematocrit 28.1 % (37-53); Lymphocytes # 0.5 10^3/uL (0.8-4.8); Lymphocytes % 5.3 %; Mean Corpuscular Hemoglobin 31.1 pg (27-33); Mean Corpuscular Volume 97.2 fl (82-101); Mean Platelet Volume 12.1 fL (7.4-10.4); Monocytes # 0.9 10^3/uL (0.2-0.9); Monocytes % 9.2 %; Neutrophils # 7.97 10^3/uL (1.8-7.7); Neutrophils % 80.9 %; Nucleated Red Blood Cells # 0.2 /100WBC; Nucleated Red Blood Cells % 2.4 %; Platelet Count 120 10^3/cmm (157-399); Red Blood Count 2.89 10^6/uL (3.85-5.65); Red Cell Distribution Width 22.4 % (12.1-15.1); White Blood Count 9.85 10^3/uL (3.29-11.43)
[2024-04-05] MEDS: piperacillin-tazobactam 3.375 GM in sodium chloride 0.9% (plus) 50 ML 2.5 GM IV (05:04)
[2024-04-05] MEDS: pantoprazole 40 mg SDV IVP (05:04)
[2024-04-05] MEDS: vancomycin 1,250 MG/250 ML PIGGYBACK 166.67 MG IV (05:04)
[2024-04-05 05:09] LABS: Alanine Aminotransferase 15 U/L (0-41); Albumin Level 3.6 g/dL (3.5-5.2); Alkaline Phosphatase 38 U/L (40-130); Anion Gap 22.5 (5-19); Aspartate Amino Transferase 42 U/L (0-40); Blood Urea Nitrogen 50 mg/dL (8-23); Calcium 8.4 mg/dL (8.5-10.5); Carbon Dioxide 20 mmol/L (22-29); Chloride 99 mmol/L (98-107); Creatinine Clr Calc Pharmacy 30.8264; Globulin 2.3 g/dL (1.3-4.6); Glucose 147 mg/dL (65-115); Osmolality Calculated 302 mOsm/kg (285-295); Potassium 3.5 mmol/L (3.5-5.1); Sodium 138 mmol/L (136-145); Total Bilirubin 2.1 mg/dL (0.15-1.2); Total Protein 5.9 g/dL (6.6-8.7)
[2024-04-05 05:16] LABS: C Reactive Protein 95.2 mg/L (0.0-4.9)
[2024-04-05 05:21] LABS: Folate Level 9.5 ng/mL (4.5-32.2)
--- NOTE | 2024-04-05 06:00 | XR_ITS ---
WS: [id number] Examination: XR chest 1V portable [id number] Reason for Exam: covid, pna Date: 04/05/2024 Comparison: 11/18/2023 Findings: There is cardiomegaly. The mediastinum is not widened. Sternal wires are in place. The lungs are hyperinflated. In the upper lungs particularly on the right there are faint pulmonary opacities.. No large effusion is seen. XR/XR chest 1V portable [id number] IMPRESSION: There is cardiomegaly Pulmonary opacities are identified particularly in the right upper lung consist ent with pneumonia.
[2024-04-05] MEDS: budesonide 0.5 mg/2 mL Neb INHALATION ×2 (08:10→20:59)
[2024-04-05] MEDS: azithromycin 250 mg Tablet 500 MG PO (10:22)
[2024-04-05] MEDS: tamsulosin 0.4 mg Capsule PO (10:22)
[2024-04-05] MEDS: pregabalin 50 mg Capsule PO (10:22)
[2024-04-05] MEDS: dexamethasone 4 mg/mL INJ 6 MG IVP (10:23)
[2024-04-05] MEDS: fenofibrate 145 mg Tablet PO (10:23)
[2024-04-05] MEDS: piperacillin-tazobactam 3.375 GM in sodium chloride 0.9% (plus) 50 ML IV ×2 (13:24→21:12)
--- NOTE | 2024-04-05 13:52 | P.PN_ITS ---
Subjective 2 Subjective: No acute vents overnight. Seen with multiple family was at bedside. Patient sleeping. As per the patient had a rough night as he could not sleep. Today morning overall he states he is feeling better. Complaining of mild blood-tinged sputum. Saturating more than 90% on 3 L. Blood pressure is better. Document urine output of about 1500 in last 24 hours. Vitals/I&O/Wt Last Vital Signs Temp 97.3 F L 04/05/24 04:00 Pulse 96 04/05/24 13:26 Resp 22 H 04/05/24 13:26 BP 111/74 04/05/24 12:00 Pulse Ox 91 04/05/24 13:26 O2 Del Method Nasal Cannula 04/05/24 13:26 O2 Flow Rate 3 04/05/24 13:26 04/04/24 04/05/24 04/05/24 22:59 06:59 14:59 Intake Total 170 / 800 1300 / 2100 560.000 / 560.000 Output Total 500 / 700 825 / 1525 Balance -330 / 100 475 / 575 560.000 / 560.000 Weight last 48 hrs Weight 78.834 kg Weight 77.337 kg Physical Exam 2 Narrative: Weak appearing, chronically sick appearing Const: COMMON NORMALS: no acute distress and patient oriented x3 HENMT: COMMON NORMALS: normocephalic HEAD & SCALP: normocephalic Eye: COMMON NORMALS: Equal, round and reactive pupils present and EOMs intact bilaterally PUPIL: Yes Equal, round and reactive pupils present Neck/C-Spine: COMMON NORMALS: no JVD Lymph: LYMPHATIC: no lymphadenopathy noted Resp: COMMON NORMALS: normal respiratory effort, No retractions, No use of accessory muscles and clear to auscultation bilaterally AUSCULTATION: clear to auscultation bilaterally Cardio: COMMON NORMALS: no JVD, regular rate, regular rhythm, S1 normal heart sound present and S2 normal heart sound present RATE: regular rate RHYTHM: regular rhythm HEART SOUNDS: S1 normal heart sound present and S2 normal heart sound present GI: COMMON NORMALS: Normal to inspection, nondistended, normoactive bowel sounds present and Soft to palpation PALPATION: Yes Soft to palpation O THER: Right upper quadrant tenderness, icterus present Extremity: COMMON NORMALS: no calf tenderness and no pedal edema Neuro: COMMON NORMALS: patient oriented x3, CN's II-XII intact bilaterally and moves all extremities Psych: COMMON NORMALS: mental status grossly normal Data 04/05/24 04:12 04/05/24 04:12 Micro: Microbiology 04/03/24 05:18 Urine Culture - Preliminary Urine,Clean Catch Strep species, gamma-hemolytic 04/03/24 05:18 Legionella Urinary Antigen - Final Unknown Source 04/03/24 05:18 Bacterial Antigens - Final Urine Kidney A&P Assessment and plan (1) Sepsis: (2) Pneumonia: (3) COVID-19: (4) CKD (chronic kidney disease): (5) Septic shock: (6) Hyperbilirubinemia: (7) Atrial fibrillation: Qualifiers: Atrial fibrillation type: other persistent Qualified Code(s): I48.19 - Other persistent atrial fibrillation (8) CHF (congestive heart failure): Qualifiers: Heart failure chronicity: acute on chronic Heart failure type: u nspecified Qualified Code(s): I50.9 - Heart failure, unspecified (9) Mitral valve prolapse: (10) Fall: Plan Severe sepsis: Currently not on Levophed. Mineral pressure being maintained over 65. SIRS: Tachycardic, Febrile, Leukocytosis on presentation to outside hospital. Source: Pneumonia End organ damage: Hypoxia Lactic acid within normal limits Patient did not receive full 30 mL/kg BW due to concern for congestive heart failure. Monitor blood pressures. Keep mean artery pressure 65 mmHg. Follow-up blood culture, MRSA swab, urine Legionella, bacterial antigen. Trend procalcitonin. Pneumonia: Respiratory viral panel positive for COVID-19. Does give COVID-19 infection with the last [address] chest. Oxygen supplementation keeping saturation over 90%. Check sputum culture. Follow-up blood culture. For now continue with IV vancomycin and Zosyn. If MRSA swab negative will discontinue vancomycin. Dose as per renal functions. Hypoxia secondary to COVID-19 pneumonia: Moderate disease. Oxygen supplementation keeping saturation over 88%. Dexamethasone 6 mg daily. Discussed in detail with patient regarding need for remdesivir given persistent symptoms with hypoxia and weakness. Both patient and patient's is agreeable today. For now start on remdesivir 200 mg one-time followed by 100 mg IV daily to finish a 3 to 5-day course. DuoNeb every 6 hour, budesonide twice daily Pulmonary toilet with incentive spirometry flutter valve. We will monitor inflammatory markers including CRP every 48 hours. Continue with home dose of dabigatran 75 mg twice daily. Elevated troponin: Most likely in setting of demand ischemia. Trending down. Aspirin 81 mg daily. Appreciate A1c, lipid panel over the last 6 months. CKD: Baseline creatinine 1.6-2. Creatinine at baseline for now. Monitor renal functions daily. Medical reconciliation done for nephrotoxic drugs. Hyperbilirubinemia: Bilirubin so far stable. CT abdomen pelvis negative for gallbladder pathology. No transaminitis. Congestive heart failure: History of diastolic heart failure. Echocardiogram done shows normal EF with severe TR, PASP of 28 mmHg, severe prolapse of anterior mitral leaflet with dilated RA with moderate to severe eccentric MR. Currently patient dehydrated. Hold off on diuretics. Gentle IV hydration with normal saline 50 cc/h. Monitor for fluid overload. CODE STATUS: Disoriented with patient and at bedside. Patient will want to remain full code for now. will be the DPOA. Cardiac diet with protein shakes. Protonix OPD prophylaxis Dabigatran will be sufficient for DVT prophylaxis. Plan for the day: Continue with aggressive pulmonary toilet. Continue with IV remdesivir to finish a 5-day course. Continue with IV dexamethasone. MRSA swab negative. Discontinue vancomycin. Follow-up blood culture. Sputum culture pending. Appreciate urine culture. Continue with IV vancomycin. Patient complaining of blood-tinged sputum. Hemoglobin stable. Continue with home dose of IV dabigatran for now. Add Robitussin DM every 4 as needed. Change Tessalon Perles to 3 times daily scheduled. Continue with gentle IV hydration for now. Appreciate chest x-ray. Patient laying down flat comfortably in bed. No concerns of fluid overload for now. Out of bed to chair. Check BMP in morning. Continue to follow-up CRP every 48 hours. Transfer to CSU. Attestations 2 Medical Necessity Statement*: Requires further hospitalization for management of acute hypoxic respiratory failure in setting of COVID-19 with superimposed bacterial pneumonia CHF in setting of mitral valve prolapse in an elderly with physical deconditioning. Diagnoses Sepsis A41.9 Pneumonia J18.9 COVID-19 U07.1 CKD (chronic kidney disease) N18.9 Septic shock A41.9; R65.21 Hyperbilirubinemia E80.6 Other persistent atrial fibrillation I48.19 Atrial fibrillation type: other persistent CHF (congestive heart failure) I50.9 Heart failure chronicity: acute on chronic Heart failure type: unspecified Mitral valve prolapse I34.1 Fall W19.XXXA
[2024-04-05] MEDS: benzonatate 100 mg Capsule PO ×2 (17:40→21:12)
[2024-04-05] MEDS: remdesivir 100 MG in sodium chloride 0.9% (100 ml) 80 ML IV (17:52)
[2024-04-05] MEDS: guaiFENesin-dextromethorphan UDC 10 mL 5 ML PO (18:11)
[2024-04-05] MEDS: ezetimibe 10 mg Tablet PO (21:12)
[2024-04-05] MEDS: allopurinol 300 mg Tablet PO (21:12)
[2024-04-06] VITALS (52 sets, daily range): BP systolic 68–142; BP diastolic 44–92; PULSE 0–201; RESP 0–38; TEMP 35.9–36.3; O2SAT 71–100
[2024-04-06] MEDS: ipratropium-albuterol 3 mL Neb INHALATION ×2 (01:55→07:28)
[2024-04-06 03:18] LABS: Hematocrit 26.9 % (37-53); Mean Corpuscular HGB Conc 32.7 g/dL (30-55); Mean Corpuscular Volume 94.7 fl (82-101); Mean Platelet Volume 12.4 fL (7.4-10.4); Platelet Count 123 10^3/cmm (157-399); Red Blood Count 2.84 10^6/uL (3.85-5.65); Red Cell Distribution Width 22.6 % (12.1-15.1); White Blood Count 8.95 10^3/uL (3.29-11.43)
[2024-04-06 03:40] LABS: Alanine Aminotransferase 21 U/L (0-41); Albumin Level 3.6 g/dL (3.5-5.2); Alkaline Phosphatase 31 U/L (40-130); Anion Gap 23.7 (5-19); Aspartate Amino Transferase 48 U/L (0-40); Blood Urea Nitrogen 58 mg/dL (8-23); Calcium 8.6 mg/dL (8.5-10.5); Carbon Dioxide 19 mmol/L (22-29); Chloride 99 mmol/L (98-107); Creatinine Clr Calc Pharmacy 30.8264; Globulin 2.2 g/dL (1.3-4.6); Glucose 146 mg/dL (65-115); Osmolality Calculated 305 mOsm/kg (285-295); Potassium 3.7 mmol/L (3.5-5.1); Sodium 138 mmol/L (136-145); Total Bilirubin 2.7 mg/dL (0.15-1.2); Total Protein 5.8 g/dL (6.6-8.7)
[2024-04-06 03:48] LABS: NT Pro B Type Natriuretic Pept 15276 pg/mL (0-450)
[2024-04-06 04:02] LABS: Absolute Neutrophil 7.1 10^3/cmm (1.4-6.5); Absolute Segmented Neutrophil 6.9 10/cmm (1.6-7.1); Band Neutrophils Absolute 0.2 10^3/cmm (0.0-1.2); Corrected White Blood Count 8.2 10^3/cmm (4.8-10.8); Eosinophils 0 %; Lymphocytes 7 %; Monocytes Absolute 0.4 10^3/cmm (0.1-0.6); Platelet Estimate Decreased (Normal); Segmented Neutrophils 77 %; Slide Review Slide Review Perform; Total Cells Counted 100 (0-100)
[2024-04-06] MEDS: piperacillin-tazobactam 3.375 GM in sodium chloride 0.9% (plus) 50 ML IV (05:00)
[2024-04-06] MEDS: pantoprazole 40 mg SDV IVP (05:00)
[2024-04-06] MEDS: lidocaine drip 2,000 MG/500 ML PREMIX 15 MG IV (06:08)
[2024-04-06] MEDS: midazolam hcl 100 MG/100 ML BAG IV (06:16)
[2024-04-06] MEDS: fentaNYL 1,000 MCG/100 ML BAG 5 MCG IV (06:20)
[2024-04-06] MEDS: fentaNYL 50 mcg/mL INJ 2mL IVP (06:22)
[2024-04-06] MEDS: propofol 1,000 MG/100 ML INJ 4.73 MG IV (06:30)
--- NOTE | 2024-04-06 06:46 | XRR_ITS ---
PROCEDURE INFORMATION: Exam: XR Chest Exam date and time: 04/06/2024 6:55 AM Age: 88 years old Clinical indication: Device placement; Other: Central line; Additional info: Line placement TECHNIQUE: Imaging protocol: Radiologic exam of the chest. Views: 1 view. COMPARISON: CR XR chest 1V portable [id number] 04/05/2024 7:22 AM FINDINGS: Tubes, catheters and devices: The endotracheal tube terminates 9 cm above the leola. Right IJ catheter tip in the SVC. Lungs: Increasing bilateral pulmonary infiltrates, right greater than left. Pleural spaces: See Heart/Mediastinum finding. Heart/Mediastinum: Cardiomegaly, vascular engorgement, and bilateral pleural effusions are present. 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 Bones/joints: Unremarkable. Other findings: . XR/XR chest 1V portable [id number] IMPRESSION: 1. Life support lines. 2. CHF
[2024-04-06] MEDS: midazolam 1 mg/mL INJ 2 mL 2 MG IVP (06:51)
[2024-04-06 07:00] LABS: Alanine Aminotransferase 24 U/L (0-41); Albumin Level 3.4 g/dL (3.5-5.2); Alkaline Phosphatase 33 U/L (40-130); Anion Gap 28.1 (5-19); Aspartate Amino Transferase 61 U/L (0-40); Blood Urea Nitrogen 61 mg/dL (8-23); Calcium 8.4 mg/dL (8.5-10.5); Carbon Dioxide 17 mmol/L (22-29); Chloride 98 mmol/L (98-107); Creatinine Clr Calc Pharmacy 34.4531; Globulin 2.3 g/dL (1.3-4.6); Glucose 180 mg/dL (65-115); Magnesium 2.4 mg/dL (1.7-2.3); Osmolality Calculated 310 mOsm/kg (285-295); Potassium 4.1 mmol/L (3.5-5.1); Sodium 139 mmol/L (136-145); Total Bilirubin 2.7 mg/dL (0.15-1.2); Total Protein 5.7 g/dL (6.6-8.7)
[2024-04-06 07:08] LABS: Hematocrit 30.1 % (37-53); Mean Corpuscular HGB Conc 30.9 g/dL (30-55); Mean Corpuscular Hemoglobin 31.1 pg (27-33); Mean Corpuscular Volume 100.7 fl (82-101); Platelet Count 136 10^3/cmm (157-399); Red Blood Count 2.99 10^6/uL (3.85-5.65); Red Cell Distribution Width 23.3 % (12.1-15.1); White Blood Count 12.68 10^3/uL (3.29-11.43)
--- NOTE | 2024-04-06 07:13 | ECG_ITS ---
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 Measurements Intervals [place] Rate: 126 P: 119 [place]: 244 QRS: -66 QRSD: 192 T: 84 QT: 330 QTc: 478 Interpretive Statements Atrial fibrillation with rapid ventricular rate and possible PVCs. Baseline artifacts PREMATURE COMPLEXES INTRAVENTRICULAR CONDUCTION DELAY [130+ ms QRS DURATION] INTERPRETATION BASED ON A DEFAULT AGE OF 40 YEARS Compared to ECG 04/05/2024 03:01:24 No significant change Electronically Signed On 04-06-2024 17:01:37 CDT by Hugh Alvarado M.D. [id number]
[2024-04-06 07:14] LABS: D Dimer 0.76 ug/mLFEU (0-0.59)
--- NOTE | 2024-04-06 07:14 | PM.CCNAC ---
Critical Care Event Note The high probability of a clinically significant, sudden or life threatening deterioration of the patient's [] system(s) required my full and direct attention, intervention and personal management. The critical care time is as shown. This time is in addition to time spent performing any reported procedures but includes the following: [x] Data and vital sign review and interpretation [x] Patient assessment, examination and intervention [x] Documentation [x] Medication orders and management Critical Care Time Code activated: Yes Critical Care Time (min): 70 Additional information about critical care time: CODE AMINTA was called at 544 Arrived at ICU at 545, currently patient is receiving CPR, ER provider at bedside, planning on intubation ? Nursing staff tell me that patient had an episode of V. tach, was complaining of shortness of breath, he came out of the V. tach, but became unresponsive -Patient received roughly 10 minutes of CPR ? Received epi 3 times Blood sugar 130 ? ? Initially patient had pulseless electrical activity of the heart, not shockable rhythm, ? At roughly 8 minutes into CPR, patient showed V-fib/pulseless V. tach, was shocked once ? Had a pulse, ROSC ? About 1 minute after, patient went back into V-fib, faint pulse, no measurable blood pressure, heart rates in the 190s to 200s, V-fib, was shocked 150 ? Due to difficult IV access bilateral IO's were placed throughout the course of CPR ? Had a pulse, ROSC, back to normal sinus rhythm at 120, bagging easily, started on Levophed drip at 5 ? Continue to have a pulse, good blood pressure 120/60, bagging easily, kept going in and out of V. tach, given 150 of amiodarone ? Continue to have episodes of V. tach, still had a good blood pressure, still had a good pulse, started on a lidocaine drip ? Patient after lidocaine drip starting at 1 mg/min, remains out mostly of V. tach at times does go back into it into minimally, but quite short-lived, good blood pressure MAP in 65, ? EKG does not show any acute ST-T wave changes, has episodes of PVCs, nonsustained V. tach on the monitor but they are very quite short-lived, mostly is in normal sinus rhythm at 1 10-1 20 ? Sedation was getting started, patient was moving his right arm turning his head from [id number], pupils equal round reactive to light ? Was given 2 of Versed, 50 of fentanyl, waiting on sedation ? Patient was difficult to bag on Versed and fentanyl, O2 sats dropped into the low 80s, was taken off the ventilator and, and bagged ? Placed on Versed drip, fentanyl drip ? O2 sats improved to the low 90s, continues to have a good pulse, continues to have a MAP greater than 65, is more sedated, respiratory therapy did tell me that he was difficult to bag ? On Versed drip Fentanyl drip, easier to bag, now more vent compliant, ? During central line placement did become agitated, placed on propofol drip ? When I left ICU at roughly 7 AM, ROSC, normal sinus rhythm, MAP greater than 65, good pulse, on 5 of Levophed, 1 of lidocaine, fentanyl drip, Versed drip, propofol drip ? Right IJ central line in place ? Right peripheral IV in place ? Bilateral IO's in place ? Troponin 48, creatinine 1.7, bicarb low at 17 started on bicarb drip -Cardiology consulted ? Troponin series ordered -Chest x-ray showing bilateral pulmonary edema, elevated BNP, possible flash pulm edema? Hold off on Lasix as creatinine is 1.7 ? Order stat echo I spoke to Dr. Weaver, patient is critically ill, prognosis guarded, family notified, events discussed, placed on heparin drip, Pradaxa stopped Coding Level of Care Code Critical Care
[2024-04-06 07:15] LABS: Glucose Point of Care 130 mg/dL (70-110)
--- NOTE | 2024-04-06 07:22 | USCV_ITS ---
Cain Simpson Age: 88 Gender: M : 1935 Exam Date: 04/06/2024 09:36 Ordering Phys: Luis Alberto Barraza MD Technologist: [place] [facility] [place]: [place] PROCEDURES: The venous duplex Doppler examination of both lower extremities was performed in the standard fashion. Bilaterally, the common femoral, superficial femoral, profunda femoral, popliteal, posterior tibial, greater saphenous veins, and the peroneal trunk were identified and interrogated in the standard fashion. FINDINGS: Normal 2-D Doppler and augmentation and compressibility throughout the lower extremity venous structures. Additional imaging through the proximal calf veins also reveals no thrombus. Limited evaluation of the greater saphenous vein is patent with no thrombus. CONCLUSIONS No DVT bilateral lower extremities. Dr. Citlali Arzate DO (Electronically Signed) Final Date: 06 April 2024 10:31 S
--- NOTE | 2024-04-06 07:22 | USCV_ITS ---
Cain Simpson Age: 88 Gender: M : 1935 Exam Date: 04/06/2024 09:56 Ordering Phys: Luis Alberto Barraza MD Technologist: CT Exam Location: [facility] [place] Indication: code blue pt BP: 92 / 65 HR: Rhythm: Sinus Technical Quality: Technically difficult study MEASUREMENTS (Male / Female) Normal Values 2D ECHO LVOT Diameter 2.1 cm LV Ejection Fraction MOD 4C 42.3 % LA Diameter 3.1 cm Aorta at Sinotubular Diameter 2.9 cm IVC Diameter 3.5 cm M-MODE LA Ao Ratio MM 1.6 AV Cusp Separation MM 1.6 cm FINDINGS Left Ventricle Right Ventricle Right Atrium Left Atrium Mitral Valve Aortic Valve Tricuspid Valve Pulmonic Valve Pericardium Aorta IVC CONCLUSIONS Limited echocardiogram performed to assess LV systolic function. LV systolic function is moderate to severely reduced with EF of 30 to 35%. Moderate to severe global hypokinesis. RV is dilated and is severely hypokinetic. IVC is dilated. Compared to prior echocardiogram from 04/03/2024, LV systolic function and RV systolic function appear to be significantly decreased. Logan Haider MD (Electronically Signed) Final Date: 06 April 2024 11:04 S
[2024-04-06] MEDS: budesonide 0.5 mg/2 mL Neb INHALATION (07:28)
--- NOTE | 2024-04-06 07:28 | P.ANES_ITS ---
Anesthesia Procedures Procedure/Date: 04/06/24 Central Venous Insert: Central Venous Line: R IJ Time Out Performed: Yes Consent: emergency procedure Central Line: New Anesthesia monitors: pulse oximetry, EKG, BP cuff and oxygen Vein cannulated: right internal jugular Ultrasound used: to identify patency to vessel and to visualize needle entry to vein Additional Comments: - Ultrasound was used to visualize right internal jugular vein which was nonpulsatile ? Ultrasound was used to visualize needle entry into right internal jugular vein, with a flashback of nonpulsatile dark red blood -Guidewire was threaded over right inter nal jugular vein, ultrasound confirms guidewire right internal jugular vein -Patient tolerated procedure well, minim al bleeding
[2024-04-06 07:31] LABS: C Reactive Protein 73.4 mg/L (0.0-4.9); Creatine Phosphokinase 76 U/L (39-308); Lactate (Lactic Acid level) 10.2 mmol/L (0.5-2.2); Procalcitonin 3.09 ng/mL (0-0.5)
--- NOTE | 2024-04-06 07:31 | PC.NURSE ---
Code Blue: At 0536 patient's monitor alarmed VTACH, at this time patient was awake in bed and asymptomatic. Patient's pulse then dropped down to the 30's and upon entering room patient was unresponsive, apnic and without a pulse. Compressions were started and code blue was called at 0544 and ACLS started See code sheet.Obtained ROSC at 0555 Verbal Orders Received from Dr. Barraza: Levophed @5 Amio 150 IVP lidocaine gtt versed 2mg IVP Fentanyl gtt Propofol gtt versed gtt See mar for administration Dr. Barraza start a right IJ Patient's notified of event; family now at bedside.
[2024-04-06] MEDS: amiodarone 150 MG/100 ML PREMIX 400 MG IV (07:46)
[2024-04-06 07:49] LABS: Basophils # 0.1 10^3/uL (0.0-0.1); Basophils % 0.9 %; Lymphocytes # 1.6 10^3/uL (0.8-4.8); Lymphocytes % 12.9 %; Neutrophils # 8.46 10^3/uL (1.8-7.7); Neutrophils % 66.8 %; Nucleated Red Blood Cells # 1.7 /100WBC
[2024-04-06 07:50] LABS: Slide Review Slide Review Perform
[2024-04-06 07:50] LABS: Blood Gas Allen Test Pos; Blood Gas Sample Site Radial, right; Blood Gas Sample Type Arterial
--- NOTE | 2024-04-06 07:52 | ECG_ITS ---
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 Measurements Intervals [place] Rate: 97 P: 0 DE: 0 QRS: -50 QRSD: 166 T: 33 QT: 417 QTc: 531 Interpretive Statements ATRIAL FIBRILLATION WITH ABERRANT CONDUCTION OR VENTRICULAR PREMATURE COMPLEXES LEFT AXIS DEVIATION [QRS AXIS < -30] INTRAVENTRICULAR CONDUCTION DELAY [130+ ms QRS DURATION] POSSIBLE INFERIOR MYOCARDIAL INFARCTION , PROBABLY OLD [30 ms Q WAVE IN II/aVF] Compared to ECG 04/05/2024 03:01:24 Left-axis deviation now present Intraventricular conduction delay now present Myocardial infarct finding now present Right-axis deviation no longer present Right bundle-branch block no longer present Electronically Signed On 04-06-2024 17:01:50 CDT by Hugh Alvarado M.D. [id number]
[2024-04-06 07:53] LABS: ABG PCO2 40.6 mmHg (35-45); ABG PH Result 7.34 (7.35-7.45); Alveolar-Arterial Oxygen Gradi 78.2 mmHg (5-10); Arterial Blood Gas Hematocrit 27.3 % (42-52); Base Excess ABG -3.6 mmol/L (-2.0-2.0); Blood Gas Operator Identificat MONRO; Blood Gas Tidal Volume 0.45; Carboxyhemoglobin 1.3 %THgb (0.4-20.1); HCO3 ABG 21.9 mmol/L (22-26); HGB O2 Sat 85.8 % (95-100); Ionized Calcium Level - ABG 1.2 mmol/L (1.1-1.4); Methemoglobin 0.7 % (0.4-1.5); Oxygen Device VENT; Oxygen Saturation ABG 87.5; PO2 ABG 63.1 mmHg (80.0-100.0); PO2 FiO2 Ratio Arterial Blood 63; Potassium Level - ABG 3.4 mmol/L (3.5-5.0); Total Hemoglobin 8.9 g/dL (14-18)
[2024-04-06] MEDS: sodium chloride 0.9% 1,000 ML 100 ML IV (07:53)
[2024-04-06 08:01] LABS: Troponin(5th) Baseline 48 ng/L (0-15)
[2024-04-06] MEDS: heparin drip 25,000 UNIT/500 ML PREMIX 22.07 UNIT IV (08:21)
[2024-04-06] MEDS: norepinephrine 4 MG/250 ML BAG 18.75 MG IV (08:27)
--- NOTE | 2024-04-06 08:33 | XR_ITS ---
WS: [id number] Examination: XR chest 1V portable [id number] Reason for Exam: post CPR Date: 04/06/2024, 8:48 a.m. Comparison: 04/06/2024, 6:57 a.m. Findings: The heart is enlarged. The mediastinum not widened. Again sternal wires are in place The ET tube has been advanced slightly. The tip lies at the level of the top of the aortic knob. The right jugular line is well-positioned Again extensive bilateral infiltrates persist and are similar. A small right effusion and possibly le ft effusion are noted.
[2024-04-06 08:52] LABS: Troponin 5 2HR 96.27 ng/L (0-15)
--- NOTE | 2024-04-06 08:58 | P.CONIM_ITS ---
Providers/Reason For Consult 2 Consulting Physician/Specialty*: Cierra Cabral MD Reason for Consult*: Cardiac arrest Arrhythmia Status post CPR Status post intubation Requesting Physician: Dr. Pruett medicine Attending Physician: Justyn Winter MD Primary Care Provider: Nato Diggs History of Present Illness History of Present Illness Cain Simpson is a 88 year old male past medical history significant for coronary artery disease hypertension hyperlipidemia COPD CHF history of CABG atrial fibrillation valvular disorder was admitted with COVID-pneumonia A-fib RVR, this morning patient had brief episode of nonsustained ventricular tachycardia followed by bradycardia and pulseless electrical activity, CPR was performed resulted in achievement of ROSC, patient was intubated, started on lidocaine drip which regularized his rhythm, we have been asked to assist in his care. I immediately saw the patient in the unit he was intubated on ventilator rhythm was sinus his blood pressure was stable with MAP more than 65. Review of Systems 2 Const: Denies: fever(s) Eyes: Denies: change in vision or photophobia ENMT: Denies: enlarged tonsils Card: Denies: chest pain Resp: Denies: dyspnea GI: Reports: nausea and vomiting; Denies: abdominal pain : Denies: flank pain or difficulty urinating Musc: Denies: back pain or joint warmth Skin/Breast: Denies: rash All/Imm: Denies: acute wheezing Medications/Allergies Home Medications Medication Instructions Recorded Confirmed Last Taken Type allopurinol 300 mg tablet 300 mg PO BEDTIME 08/08/19 04/03/24 04/01/24 History dabigatran etexilate 75 mg capsule 75 mg PO BID 08/08/19 04/04/24 04/01/24 History (Pradaxa) ezetimibe 10 mg tablet 10 mg PO BEDTIME 08/08/19 04/03/24 04/01/24 History fenofibrate 160 mg tablet 160 mg PO DAILY 08/08/19 04/03/24 04/01/24 History potassium chloride 20 mEq 20 meq PO DAILY 08/08/19 04/03/24 04/01/24 History tablet,extended release(part/cryst) (Klor-Con M) tamsulosin 0.4 mg capsule 0.4 mg PO DAILY 08/08/19 04/03/24 04/01/24 History multivitamin 1 tab PO DAILY 10/09/20 04/04/24 04/01/24 History isosorbide mononitrate 30 mg 15 mg PO DAILY 04/16/21 04/03/24 04/01/24 History tablet,extended release 24 hr nitroglycerin 0.4 mg sublingual 0.4 mg sublingual Q5M PRN chest 04/15/22 04/04/24 Unknown Rx tablet (Nitrostat) pain #25 tabs trazodone 50 mg tablet 50 mg PO BEDTIME PRN Sleep #30 tabs 09/25/23 04/04/24 Unknown Rx furosemide 40 mg tablet 40 mg PO DAILY@0800 #30 tabs 10/30/23 04/03/24 04/01/24 Rx pregabalin 50 mg capsule (Lyrica) 50 mg PO DAILY #60 caps 11/01/23 04/03/24 04/01/24 Rx metolazone 2.5 mg tablet 2.5 mg PO DAILY #30 tabs 12/05/23 04/03/24 04/01/24 Rx vitamin B complex 1 tab PO DAILY 04/04/24 04/04/24 04/01/24 History Allergies Allergy/AdvReac Type Severity Reaction Status Date / Time adhesive tape Allergy unknown Verified 03/06/24 11:11 Current Medications Generic Name Dose Route Start Last Admin Trade Name Obedq PRN Reason Stop Dose Admin Albuterol/Ipratropium 3 ml 04/04/24 14:00 04/06/24 07:28 Ipratropium-Albuterol 3 Ml Neb INHALATION 3 ml Q6H.RESP CLAUDIA Administration Allopurinol 300 mg 04/03/24 21:00 04/05/24 21:12 Allopurinol 300 Mg Tablet PO 300 mg BEDTIME CLAUDIA Administration Azithromycin 500 mg 04/04/24 09:00 04/05/24 10:22 Azithromycin 250 Mg Tablet PO 04/07/24 08:59 500 mg DAILY CLAUDIA Administration Protocol Benzonatate 100 mg 04/05/24 15:00 04/05/24 21:12 Benzonatate 100 Mg Capsule PO 100 mg TID CLAUDIA Administration Budesonide 0.5 mg 04/04/24 18:00 04/06/24 07:28 Budesonide 0.5 Mg/2 Ml Neb INHALATION 0.5 mg BID.RESPIRATORY CLAUDIA Administration Dexamethasone 6 mg 04/03/24 09:45 04/05/24 10:23 Dexamethasone 4 Mg/Ml Inj IVP 6 mg Q24H CLAUDIA Administration Ezetimibe 10 mg 04/03/24 21:00 04/05/24 21:12 Ezetimibe 10 Mg Tablet PO 10 mg BEDTIME CLAUDIA Administration Fenofibrate 145 mg 04/03/24 09:00 04/05/24 10:23 Fenofibrate 145 Mg Tablet PO 145 mg DAILY CLAUDIA Administration Guaifenesin/Dextromethorphan 5 ml 04/05/24 13:51 04/05/24 18:11 Guaifenesin-Dextromethorphan Udc 10 Ml PO 5 ml Q4H PRN Administration COUGH Piperacillin Sod/Tazobactam 50 mls @ 12.5 mls/hr 04/03/24 05:45 04/06/24 05:00 Sod 3.375 gm/ Sodium Chloride IV 12.5 mls/hr Q8H CLAUDIA Administration Remdesivir 100 mg/ Sodium 100 mls @ 100 mls/hr 04/05/24 18:00 04/05/24 19:02 Chloride IV 04/08/24 18:59 Infused Q24H CLAUDIA Infusion Propofol 1,000 mg in 100 mls @ 0 mls/hr 04/06/24 06:30 04/06/24 06:30 Diprivan IV 10 mcg/kg/min .Q0M CLAUDIA 4.73 mls/hr Administration Protocol Per Protocol Fentanyl 1,000 mcg in 100 mls @ 0 mls/hr 04/06/24 06:30 04/06/24 06:20 Sublimaze IV 50 mcg/hr .Q0M CLAUDIA 5 mls/hr Administration Protocol Per Protocol Heparin Sodium/Sodium Chloride 25,000 unit in 500 mls @ 0 mls/hr 04/06/24 07:15 04/06/24 08:21 Heparin Drip IV 14 unit/kg/hr CONT CLAUDIA 22.07 mls/hr Administration Protocol Per Protocol Lidocaine HCl/Dextrose 2,000 mg in 500 mls @ 30 mls/hr 04/06/24 07:15 04/06/24 06:08 Lidocaine Drip IV 1 mg/min .[id number] CLAUDIA 15 mls/hr Administration 2 MG/MIN Norepinephrine Bitartrate 4 mg in 250 mls @ 0 mls/hr 04/06/24 07:15 04/06/24 08:27 Levophed IV 5 mcg/min .Q0M CLAUDIA 18.75 mls/hr Administration Protocol Per Protocol Amiodarone HCl/Dextrose 360 mg in 200 mls @ 0 mls/hr 04/06/24 07:30 04/06/24 07:59 Nexterone IV 1 mg/min .Q0M CLAUDIA 33.33 mls/hr Administration Protocol Per Protocol Sodium Chloride 1,000 mls @ 100 mls/hr 04/06/24 07:45 04/06/24 07:53 Sodium Chloride 0.9% IV 100 mls/hr .Q10H CLAUDIA Administration Pantoprazole Sodium 40 mg 04/03/24 05:15 04/06/24 05:00 Pantoprazole 40 Mg Sdv IVP 40 mg Q24H CLAUDIA Administration Pregabalin 50 mg 04/03/24 09:00 04/05/24 10:22 Pregabalin 50 Mg Capsule PO 50 mg DAILY CLAUDIA Administration Tamsulosin HCl 0.4 mg 04/03/24 09:00 04/05/24 10:22 Tamsulosin 0.4 Mg Capsule PO 0.4 mg DAILY CLAUDIA Administration Trazodone HCl 50 mg 04/03/24 05:12 04/03/24 21:20 Trazodone 50 Mg Tablet PO 50 mg BEDTIME PRN Administration Sleep PFSH Acute 2 PFSH: Medical History (Updated 04/06/24 @ 19:20 by Cierra Cabral MD) 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 Shortness of breath Severe tricuspid regurgitation Congestive heart failure Lower urinary tract symptoms (LUTS) Postprocedural membranous urethral stricture Gross hematuria Edema, peripheral ASHD (arteriosclerotic heart disease) Atrial fibrillation Hypertension Hyperlipidemia Valvular heart disease Right inguinal hernia Diverticulosis BPH (benign prostatic hyperplasia) Erectile dysfunction Incomplete bladder emptying Prostate cancer Surgical History Status post cataract extraction Status post appendectomy Status post coronary artery bypass graft Status post bilateral inguinal hernia repair Family History Father , AT AGE 68-[place] No problems noted. Mother , OF STOMACH CANCER AT AGE 75 Diabetes Other CAD (coronary artery disease) Cancer Hypertension Denies family history of Clotting disorder Dementia Chronic kidney disease (CKD) Suicide Anesthesia complication Bleeding disorder Lung disease Stroke Social History Smoking and tobacco/nicotine status: never used tobacco/nicotine Quit status (tobacco/nicotine): has quit using Year quit tobacco: 1969 Former quit date comment: 1ppd X 30 years Alcohol intake: never Substance/Drug Use: never Marital status: Current occupational status: retired Dietary Habits: Current diet type/program: regular Caffeine: Yes Vitals/I&O/Wt Last Vital Signs Temp 97.4 F L 04/06/24 05:09 Pulse 99 04/06/24 07:28 Resp 20 H 04/06/24 07:33 BP 118/75 04/06/24 04:00 Pulse Ox 95 04/06/24 07:33 O2 Del Method Mechanical Ventilation 04/06/24 07:28 O2 Flow Rate 4 04/06/24 01:55 FiO2 100 04/06/24 07:33 04/05/24 04/06/24 04/06/24 22:59 06:59 14:59 Intake Total 950 / 1510.000 50 / 1560.000 Output Total 350 / 350 Balance 950 / 1510.000 -300 / 1210.000 Weight last 48 hrs Weight 173 lb 12.8 oz Weight 173 lb 12.8 oz Weight 173 lb 12.8 oz Physical Exam 2 Const: OTHER: GENERAL: Patient is intubated and unconscious HEART: Regular S1 and S2. No significant murmur can be appreciated due to vent sound LUNGS: C decreased breath sounds bilaterally. CENTRAL NERVOUS SYSTEM: Unconscious cannot assess Data 04/06/24 12:02 04/06/24 12:02 Micro: Microbiology 04/03/24 05:18 Urine Culture - Preliminary Urine,Clean Catch Strep species, gamma-hemolytic A&P Assessment and plan (1) Cardiac arrest: (2) CHF (congestive heart failure): Qualifiers: Heart failure chronicity: acute on chronic Heart failure type: u nspecified Qualified Code(s): I50.9 - Heart failure, unspecified (3) COVID: (4) Atrial fibrillation: Qualifiers: Atrial fibrillation type: other persistent Qualified Code(s): I48.19 - Other persistent atrial fibrillation (5) Hypertension: Qualifiers: Hypertension type: essential hypertension Qualified Code(s): I10 - Essential (primary) hypertension (6) Hyperlipidemia: Qualifiers: Hyperlipidemia type: mixed hyperlipidemia Qualified Code(s): E78.2 - Mixed hyperlipidemia Plan This is a critical patient will 88-year-old past medical history as defined above presented with COVID-pneumonia heart failure A-fib RVR had CODE BLUE cardiac arrest with pulseless electrical activity resuscitated and intubated. Patient had brief episode of ventricle tachycardia followed by pulseless electrical activity. Currently vital stable but nonresponsive. Patient FiO2 is 100 with elevated PEEP, x-ray is also consistent with pulmonary edema/pneumonia. Twelve-lead EKG is consistent with atrial fibrillation right bundle branch block no acute ST elevation. Troponin is minimally elevated. Presentation is not consistent with acute coronary syndrome most likely cardiac arrest secondary to pulmonary causes such as pneumonia/COVID cannot rule out pulmonary embolism Agree with echocardiogram Start patient on IV Lasix 40 mg twice daily first dose now Continue antibiotic and antiviral treatment as per medicine Continue anticoagulation in the form of heparin Continue aggressive pulmonary measures and treatment At the moment there is no indication for left heart catheterization at the same time he is not a good candidate for invasive strategy. I have detailed discussion with the patient's immediate family including his daughter and son-in-law they all are in agreement and would not like to be treated aggressively with invasive procedure. Coding Level of Care Code Acute Code for [facility] Diagnoses Cardiac arrest I46.9 CHF (congestive heart failure) I50.9 Heart failure chronicity: acute on chronic Heart failure type: unspecified COVID U07.1 Other persistent atrial fibrillation I48.19 Atrial fibrillation type: other persistent Essential hypertension I10 Hypertension type: essential hypertension Mixed hyperlipidemia E78.2 Hyperlipidemia type: mixed hyperlipidemia
[2024-04-06 08:59] LABS: Troponin 5 2HR Delta 48.27 ABS# (0-10)
[2024-04-06] MEDS: methylPREDNISolone sod succ 40 mg/mL INJ IVP (10:16)
[2024-04-06] MEDS: pregabalin 50 mg Capsule PO (10:17)
[2024-04-06] MEDS: FUROsemide 10 mg/mL SDV 4mL 20 MG IVP (10:17)
[2024-04-06] MEDS: azithromycin 250 mg Tablet 500 MG PO (10:17)
--- NOTE | 2024-04-06 10:23 | ECG_ITS ---
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 Measurements Intervals [place] Rate: 86 P: 0 [place]: 0 QRS: 106 QRSD: 163 T: 61 QT: 437 QTc: 523 Interpretive Statements ATRIAL FIBRILLATION RIGHT AXIS DEVIATION [QRS AXIS > 100] INTRAVENTRICULAR CONDUCTION DELAY [130+ ms QRS DURATION] Compared to ECG 04/06/2024 07:52:10 Right-axis deviation now present Ventricular premature complex(es) no longer present Aberrant conduction of supraventricular beat(s) no longer present Left-axis deviation no longer present Myocardial infarct finding no longer present Electronically Signed On 04-06-2024 17:11:00 CDT by Hugh Alvarado M.D. [id number]
--- NOTE | 2024-04-06 10:34 | XR_ITS ---
WS: [id number] Examination: XR chest 1V portable [id number] Reason for Exam: ET placement, PE? O2 sats dropping Date: 04/06/2024, 10:52 a.m. Comparison: 04/06/2024, 8:48 a.m. Findings: The ET tube appears well-positioned. There is a right jugular line. The heart is enlarged. Sternal wires are again noted. Extensive bilateral infiltrates persist and appear similar. These appear greater on the right than th e left small effusions are noted. No pneumothorax is identified XR/XR chest 1V portable [id number] Impression: The ET tube is well-positioned. Bilateral infiltrates persist and appear similar.
[2024-04-06 10:54] LABS: Reflex FDPQ test REFLEX FDP QUEST TES
[2024-04-06 11:13] LABS: INR 2.33 (0.8-1.2)
[2024-04-06 11:14] LABS: Fibrinogen 347 mg/dL (174-498)
--- NOTE | 2024-04-06 11:20 | PC.NURSE ---
heparin bolus held per Dr lopez orders due to recent use of digatroban.
--- NOTE | 2024-04-06 11:21 | PC.NURSE ---
Addendum entered by Lamin Lees RN 04/06/24 11:32: Oxygen levels once again dropped to the low 80's at approximately 1130, no immediate cause identified. nurse provided inline suction with no effect. RT was notified. Nurse repositioned patient and oxygen levels improved briefly and dropped again. After multiple positions tried, a position was found which allowed better saturations. An increase in PVC frequency was then noticed, nurse alerted Dr lopez. NO new orders received, continue to observe. Original Note: at approximately 1030, nurse attempted to insert OG tube to administer oral meds. Nurse was unsuccesul in placeing OG tube as it kept curling in the mouth. Attampted NG. WHile inserting NG tube patient suddenly became hypoxic with a saturation in the mid 70's. RT was at bedside at the time, Dr lopez was called to bedside. Assessment did not reveal anything abnormal. Equal chest rise, breath sounds clear on both sides or possibly slightly diminished on left. RT disconnected patient from vent and started manually bagging. Dr lopez ordered Xray. Peep increased to 10. Shortly after, the patient's oxygen started to increase back to the low 90's. Xray did not show any changes compared to this morning.
[2024-04-06 11:22] LABS: Partial Thromboplastin Time 94.4 SECONDS (23.9-36.7)
[2024-04-06] MEDS: azithromycin 500 MG in sodium chloride 0.9% 250 ML 250 MG IV (11:49)
[2024-04-06 12:19] LABS: Hematocrit 26.6 % (37-53); Mean Corpuscular Volume 97.1 fl (82-101); Platelet Count 201 10^3/cmm (157-399); Red Blood Count 2.74 10^6/uL (3.85-5.65); Red Cell Distribution Width 22.6 % (12.1-15.1); White Blood Count 19.25 10^3/uL (3.29-11.43)
[2024-04-06 12:37] LABS: Alanine Aminotransferase 31 U/L (0-41); Albumin Level 3.2 g/dL (3.5-5.2); Alkaline Phosphatase 65 U/L (40-130); Anion Gap 21.8 (5-19); Aspartate Amino Transferase 85 U/L (0-40); Blood Urea Nitrogen 63 mg/dL (8-23); Calcium 7.8 mg/dL (8.5-10.5); Carbon Dioxide 22 mmol/L (22-29); Chloride 97 mmol/L (98-107); Creatinine Clr Calc Pharmacy 29.2851; Globulin 2.1 g/dL (1.3-4.6); Glucose 215 mg/dL (65-115); Magnesium 2.4 mg/dL (1.7-2.3); Osmolality Calculated 308 mOsm/kg (285-295); Potassium 3.8 mmol/L (3.5-5.1); Sodium 137 mmol/L (136-145); Total Bilirubin 3.1 mg/dL (0.15-1.2); Total Protein 5.3 g/dL (6.6-8.7)
[2024-04-06 12:50] LABS: Troponin 5 6HR 193.9 ng/L (0-15); Troponin 5 6HR Delta 145.9 ng/L (0-12)
[2024-04-06 12:58] LABS: Absolute Segmented Neutrophil 14.4 10/cmm (1.6-7.1); Band Neutrophils Absolute 2.9 10^3/cmm (0.0-1.2); Corrected White Blood Count 18.3 10^3/cmm (4.8-10.8); Lymphocytes 5 %; Monocytes Absolute 0.8 10^3/cmm (0.1-0.6); Segmented Neutrophils 75 %; Total Cells Counted 100 (0-100)
[2024-04-06 13:00] LABS: Absolute Neutrophil 17.3 10^3/cmm (1.4-6.5); Eosinophils 0 %; Platelet Estimate Normal (Normal); Poikilocytosis 1+; Polychromasia 1+
[2024-04-06] MEDS: cisatracurium 100 MG in sodium chloride 0.9% 50 ML IV (13:08)
--- NOTE | 2024-04-06 13:09 | PC.NURSE ---
Position changes are no longer effective in maintaining O2 Saturations. Unable to rise about 75%. Nurse alerted Dr lopez. Ventilator is currently at 100% FI02, Peep 10. Nurse alerted Dr lopez and received orders for nimbex. Nurse alerted patient's to change in condition. Explained inability to maintain oxygen levels and trying a paralytic now. Patient's Martha told nurse that the patient wouldn't want all of this done and asked if we were able to stop what we were doing. NUrse explained yes, explained the comfort care process, would like to speak to physician before proceeding with comfort care. Nurse alerted Dr lopez
--- NOTE | 2024-04-06 13:23 | P.PN_ITS ---
Subjective 2 Subjective: Earlier today morning at around 6 AM patient had nonsustained V. tach turned into VT V-fib after which he had CODE BLUE and CPR done for 10 minutes. He was intubated and eventually achieved ROSC. On examination he is on lidocaine drip, fentanyl, propofol, Versed, Levophed of 6. Saturating in low 90s on 100% with a PEEP of 8, heart rate of around 90 bpm with frequent VPCs and a mean artery pressure of around 65. Vitals/I&O/Wt Last Vital Signs Temp 97.4 F L 04/06/24 05:09 Pulse 99 04/06/24 07:28 Resp 19 H 04/06/24 10:57 BP 118/75 04/06/24 04:00 Pulse Ox 94 04/06/24 11:11 O2 Del Method Mechanical Ventilation 04/06/24 11:11 O2 Flow Rate 4 04/06/24 01:55 FiO2 100 04/06/24 11:11 04/05/24 04/06/24 04/06/24 22:59 06:59 14:59 Intake Total 950 / 1510.000 50 / 1560.000 544.102 / 544.102 Output Total 350 / 350 Balance 950 / 1510.000 -300 / 1210.000 544.102 / 544.102 Weight last 48 hrs Weight 78.834 kg Weight 78.834 kg Weight 78.834 kg Physical Exam 2 Narrative: Weak appearing, chronically sick appearing Const: GENERAL APPEARANCE: patient mechanically ventilated OTHER: Sedated HENMT: COMMON NORMALS: normocephalic HEAD & SCALP: normocephalic Eye: COMMON NORMALS: Equal, round and reactive pupils present and EOMs intact bilaterally PUPIL: Yes Equal, round and reactive pupils present Neck/C-Spine: COMMON NORMALS: no JVD Lymph: LYMPHATIC: no lymphadenopathy noted Resp: COMMON NORMALS: normal respiratory effort, No retractions, No use of accessory muscles and clear to auscultation bilaterally AUSCULTATION: clear to auscultation bilaterally Cardio: COMMON NORMALS: no JVD, regular rate, regular rhythm, S1 normal heart sound present and S2 normal heart sound present RATE: regular rate RHYTHM: regular rhythm HEART SOUNDS: S1 normal heart sound present and S2 normal heart sound present GI: COMMON NORMALS: Normal to inspection, nondistended, normoactive bowel sounds present and Soft to palpation PALPATION: Yes Soft to palpation O THER: Right upper quadrant tenderness, icterus present Extremity: COMMON NORMALS: no calf tenderness and no pedal edema Neuro: COMMON NORMALS: CN's II-XII intact bilaterally and moves all extremities Psych: COMMON NORMALS: mental status grossly normal Data 04/06/24 12:02 04/06/24 12:02 Micro: Microbiology 04/03/24 05:18 Urine Culture - Preliminary Urine,Clean Catch Strep species, gamma-hemolytic A&P Assessment and plan (1) Cardiac arrest with ventricular fibrillation: (2) Septic shock: (3) Sepsis: (4) Pneumonia: (5) COVID-19: (6) CKD (chronic kidney disease): (7) Atrial fibrillation: Qualifiers: Atrial fibrillation type: other persistent Qualified Code(s): I48.19 - Other persistent atrial fibrillation (8) Fracture of multiple ribs due to CPR: (9) CHF (congestive heart failure): Qualifiers: Heart failure chronicity: acute on chronic Heart failure type: u nspecified Qualified Code(s): I50.9 - Heart failure, unspecified (10) Mitral valve prolapse: (11) Fall: (12) Hyperbilirubinemia: Plan Severe sepsis: Currently not on Levophed. Mineral pressure being maintained over 65. SIRS: Tachycardic, Febrile, Leukocytosis on presentation to outside hospital. Source: Pneumonia End organ damage: Hypoxia Lactic acid within normal limits Patient did not receive full 30 mL/kg BW due to concern for congestive heart failure. Monitor blood pressures. Keep mean artery pressure 65 mmHg. Follow-up blood culture, MRSA swab, urine Legionella, bacterial antigen. Trend procalcitonin. Pneumonia: Respiratory viral panel positive for COVID-19. Does give COVID-19 infection with the last [address] chest. Oxygen supplementation keeping saturation over 90%. Check sputum culture. Follow-up blood culture. For now continue with IV vancomycin and Zosyn. If MRSA swab negative will discontinue vancomycin. Dose as per renal functions. Hypoxia secondary to COVID-19 pneumonia: Moderate disease. Oxygen supplementation keeping saturation over 88%. Dexamethasone 6 mg daily. Discussed in detail with patient regarding need for remdesivir given persistent symptoms with hypoxia and weakness. Both patient and patient's is agreeable today. For now start on remdesivir 200 mg one-time followed by 100 mg IV daily to finish a 3 to 5-day course. DuoNeb every 6 hour, budesonide twice daily Pulmonary toilet with incentive spirometry flutter valve. We will monitor inflammatory markers including CRP every 48 hours. Continue with home dose of dabigatran 75 mg twice daily. Elevated troponin: Most likely in setting of demand ischemia. Trending down. Aspirin 81 mg daily. Appreciate A1c, lipid panel over the last 6 months. CKD: Baseline creatinine 1.6-2. Creatinine at baseline for now. Monitor renal functions daily. Medical reconciliation done for nephrotoxic drugs. Hyperbilirubinemia: Bilirubin so far stable. CT abdomen pelvis negative for gallbladder pathology. No transaminitis. Congestive heart failure: History of diastolic heart failure. Echocardiogram done shows normal EF with severe TR, PASP of 28 mmHg, severe prolapse of anterior mitral leaflet with dilated RA with moderate to severe eccentric MR. Currently patient dehydrated. Hold off on diuretics. Gentle IV hydration with normal saline 50 cc/h. Monitor for fluid overload. CODE STATUS: Disoriented with patient and at bedside. Patient will want to remain full code for now. will be the DPOA. Cardiac diet with protein shakes. Protonix OPD prophylaxis Dabigatran will be sufficient for DVT prophylaxis. Plan for the day: 04/06. Patient had a CPR and CODE BLUE today in setting of V. tach V-fib arrhythmia. Maintain sedation with IV fentanyl and propofol. Discontinue Versed. Can go up on fentanyl. Concerns for multiple rib fractures. Maintain saturation over 90%. Check ABG. Will change ventilator settings accordingly. Chest x-ray. NG tube placement, Daniels placement. Continue with IV Zosyn. Continue with IV remdesivir. Switch from dexamethasone to Solu-Medrol 40 mg every 6 hour. Concerns for possible PE. Limited echocardiogram ordered. Switch from dabigatran to heparin drip. Check troponin cycle. Switch from lidocaine drip to amiodarone drip with amiodarone bolus. Appreciate cardiology recommendations. Monitor urine output. Cheetah examination shows patient being not fluid responsive. Stop fluids. IV Lasix 40 mg twice daily. Monitor urine output. Repeat CBC, CMP with magnesium in afternoon. Goals of care discussion: Discussed in detail with patient's spouse, daughter and multiple family members at bedside. We discussed that unfortunately patient had a cardiac event today morning which could be in the setting of pulmonary embolism versus ACS versus stress of severe infection. We discussed unfortunately at this point it is difficult to see if he has any brain damage from CPR for around 10 minutes. Discussed the treatment going forward with heparin drip, sedation with fentanyl and propofol. Discussed about guarded prognosis given his baseline health, age and significant event today morning. Family verbalizes understanding. As per the patient would not want to live in a vegetative state. Discussed about CODE STATUS. Discussed that unfortunately patient already has multiple rib fractures and if needed for repeat CPR he can have further injury to the lung and the heart. verbalizes understanding and states would have not wanted to live in the current situation. She is okay with medications as per ACLS protocol, defibrillation if needed but does not want any further chest compressions. She does not want the defibrillation for more than 5 minutes given concerns for brain damage. CODE STATUS changed to limited resuscitation. Attestations 2 Medical Necessity Statement*: Requires further hospitalization for management of septic shock, post CPR, V. tach V-fib arrest in a patient admitted for multifocal pneumonia, COVID-19, CKD with baseline history of diastolic heart failure and mitral valve prolapse Critical Care Time: The high probability of a clinically significant, sudden or life threatening deterioration of the patient's [cardiac, pulmonary, renal, neurology, ID] s ystem(s) required my full and direct attention, intervention and personal management. The critical care time is as shown. This time is in addition to time spent performing any reported procedures but includes the following: [x] Data and vital sign review and interpretation [x] Patient assessment, examination and intervention [x] Documentation [x] Medication orders and management Critical Care Time (min): 90 Coding Level of Care Code Critical Care >/= 30 minutes Critical care time (in minutes): 90 The high probability of a clinically significant, sudden or life threatening deterioration, as referenced in this documentation, required my full and direct attention, intervention and personal management. The critical care time shown is in addition to time spent performing any reported separately billable procedures and includes the following: [x] Data and vital sign review and interpretation [x ] Patient assessment, examination and intervention [x] Medication orders and management [x] Patient/Family updates as able [x] Care Coordination and Documentation. Other Coding Information This patient has a high probability of clinically significant, sudden or life threatening deterioration of the patient's (neurological/pulmonary/cardiac/renal/ID/endocrine) systems required my full, direct attention, the highest level of physician preparedness for urgent intervention and personal management. I managed/supervised life or organ supporting interventions that required frequent physician assessment. I devoted my full attention in the ICU to the direct care of this patient for the period of time indicated above. Time I spent with family or surrogate(s) is included only if the patient was incapable of providing necessary information or participating in decision making. This time includes the following services provided: Telemetry review Mechanical Ventilation Hemodynamic interpretation, assessment and management Review and interpretation of CXR Review and interpretation of lab values Review and interpretation of microbiologic data and culture results Review of medications and administration Review and interpretation of Nutrition requirements and management Discussion of management with other consultants and services Clinical update to family members Diagnoses Cardiac arrest with ventricular fibrillation I46.9; I49.01 Septic shock A41.9; R65.21 Sepsis A41.9 Pneumonia J18.9 COVID-19 U07.1 CKD (chronic kidney disease) N18.9 Other persistent atrial fibrillation I48.19 Atrial fibrillation type: other persistent Fracture of multiple ribs due to CPR M96.A3 CHF (congestive heart failure) I50.9 Heart failure chronicity: acute on chronic Heart failure type: unspecified Mitral valve prolapse I34.1 Fall W19.XXXA Hyperbilirubinemia E80.6
--- NOTE | 2024-04-06 13:41 | PC.NURSE ---
After speaking with Dr lopez the has decided to proceed with comfort care. NUrse turned of all sedation, discontinued all other medications. Family is at bedside. Respiratory therapist removed ET tube. and additional family members are at bedside. booking supervisor has called [facility].
[2024-04-06 13:42] LABS: Glucose Point of Care 191 mg/dL (70-110)
--- NOTE | 2024-04-06 13:52 | PC.NURSE ---
Patient started to become bradycardic at 1345 which progressed to asystole at 1348. This nurse and Jagjit Quevedo RN entered room and both palpated for pulse and auscultated heart sounds for 1 minute. No Heart sounds detected. Nurse informed the patient's family, who was at bedside, that the patient has . NUrse alerted day care supervisor to time of and she will contact [facility]. Nurse alerted Dr Winter.
--- NOTE | 2024-04-06 14:40 | PC.NURSE ---
Martha Simpson would like to use [facility] home out of [place], or. Body transfer record filled out. [facility]Urse [facility] [place] and spoke to cam. Provided 's contact information. Cam says he will arrive in about 45 minutes.
--- NOTE | 2024-04-06 15:39 | PC.NURSE ---
Post mortem care provided. All IVs removed, central line rmeoved, izaguirre catheter removed. Body cleaned. Patient is in a body bag, foot, hand, and bag labeled with name. [facility] home picked up patient at 1530
--- NOTE | 2024-04-07 18:20 | PM.CCN ---
Critical Care Event Note Responded to ICU 7. CODE BLUE CPR was in progress initially ran the code return to code over to Dr. Calhoun who is the nighttime hospitalist managing the patient. I did intubate the patient see note below Critical Care Time Code activated: Yes Critical Care Time (min): 0 Procedures Intubation Laryngoscope: fiber optic video scope ET tube size: 8 ET tube uncuffed: No Tube secured depth (cm): 22 Tube secured location: teeth Tube placement confirmation: visualized tube passing through cords, equal breath sounds bilaterally, no breath sounds over epigastrium, confirmation by capnometry and color change noted Patient tolerated procedure: well Intubation complications: none Coding Level of Care Code Acute Code for Chg Fwd
[2024-04-13 06:21] LABS: Fibrinogen Degradation Product 10 mcg/mL (LESS THAN 5)
== END 2024-04-06 15:30 | disposition expired | DRG 871 ==
PROVIDERS: Student in an Organized Health Care Education/Training Program; Admitting Provider Family Medicine; PCP Family Medicine; Visit Provider Student in an Organized Health Care Education/Training Program
DX: A41.9 Sepsis, unspecified organism (principal); I50.33 Acute on chronic diastolic (congestive) heart failure; J96.01 Acute respiratory failure with hypoxia; R65.21 Severe sepsis with septic shock; U07.1 COVID-19; J12.82 Pneumonia due to coronavirus disease 2019; N17.9 Acute kidney failure, unspecified; I48.19 Other persistent atrial fibrillation; I13.0 Hypertensive heart and chronic kidney disease with heart failure and stage 1 through stage 4 chronic kidney disease, or unspecified chronic kidney disease; I47.20 Ventricular tachycardia, unspecified; I24.89 Other forms of acute ischemic heart disease; M96.A3 Multiple fractures of ribs associated with chest compression and cardiopulmonary resuscitation; Z79.01 Long term (current) use of anticoagulants; Z87.891 Personal history of nicotine dependence; N18.9 Chronic kidney disease, unspecified; I25.10 Atherosclerotic heart disease of native coronary artery without angina pectoris; Z95.1 Presence of aortocoronary bypass graft; E78.2 Mixed hyperlipidemia; N40.0 Benign prostatic hyperplasia without lower urinary tract symptoms; I34.1 Nonrheumatic mitral (valve) prolapse; E80.6 Other disorders of bilirubin metabolism; I45.10 Unspecified right bundle-branch block; R00.1 Bradycardia, unspecified; I49.01 Ventricular fibrillation; I46.8 Cardiac arrest due to other underlying condition; Z51.5 Encounter for palliative care
CPT/HCPCS: 36415; 36416; 36600; 51702; 70450; 71045; 71250; 74176; 76705; 80051; 80053; 81003; 81015; 82330; 82550; 82746; 82803; 82805; 82962; 83605; 83690; 83735; 83880; 84100; 84145; 84443; 84484; 85007; 85025; 85362; 85378; 85384; 85610; 85730; 86140; 86403; 87040; 87070; 87077; 87086; 87186; 87205; 87449; 87486; 87581; 87633; 87641; 93005; 93306; 93308; 93970; 94002; 94640; 94664; 94799; 97110; 97116; 97163; 97530; A4222; J0248; J0283; J0456; J1100; J1644; J1940; J2001; J2250; J2470; J2543; J2704; J2919; J3010; J3370; J3490; J7030; J7050; J7626; Q0144